=== PATIENT | female | born 1945 | race Caucasian/White ===

== ENCOUNTER → 2017-03-20 | Outpatient (CLI) | payer MEDICARE, OTHER ==
[2016-10-27 08:04] VITALS: BMI 20.1
[~2017-03-20] MED LIST: ASPI-1471 PO; CALC-904 PO; CHOL10005 PO; CIPR-214 PO; ESTR10TA4 VG; GOLYTE PO; IBUP600T22 PO; LACT1CAP6 PO; LIDO30CR3 TP; LOR5/325 PO; LORA-1455 PO; MAGN250T34 PO; MOM PO; MULT-1081 PO; OMEG-36 PO; OXYC-865 PO; PHEN16.215 PO; PROC10TA4 PO; SIME62.54 PO
== END ==
LOC: SPU 07:38
PROVIDERS: ATTEND Internal Medicine Medical Oncology
DX: C56.9 Malignant neoplasm of unspecified ovary (principal)
CPT/HCPCS: 96523

== ENCOUNTER → 2017-05-15 | Outpatient (CLI) | payer MEDICARE, OTHER ==
[2016-10-27 08:04] VITALS: BMI 20.1
[~2017-05-15] MED LIST changes: +ALTEPLASE RECOMB 2 MG VIAL IVP PRN; +DEXTROSE 5%(*) 100 ML BAG 100 ML IVPB PRN; +HEPARIN FLSH (PORT) 500 UN/5ML IVP PRN; +LIDOCAINE/SOD BICARB 8.4% SYR ID PRN; +NS(*) 0.9% 100 ML BAG 100 ML IVPB PRN; +NS(*) 0.9% 500 ML BAG 500 ML IV PRN; +WATER FOR INJ,STERILE 20 ML IVP PRN
[2017-05-15 11:14] VITALS: BP 120/51
== END ==
LOC: SPU 07:43
PROVIDERS: ATTEND Nurse Practitioner Family
DX: C56.9 Malignant neoplasm of unspecified ovary (principal)
CPT/HCPCS: 96523; J1642

== ENCOUNTER → 2017-06-26 | Outpatient (CLI) | payer MEDICARE, OTHER ==
[2016-10-27 08:04] VITALS: BMI 20.1
[~2017-06-26] MED LIST changes: -ALTEPLASE RECOMB 2 MG VIAL IVP PRN; -DEXTROSE 5%(*) 100 ML BAG 100 ML IVPB PRN; -HEPARIN FLSH (PORT) 500 UN/5ML IVP PRN; -LIDOCAINE/SOD BICARB 8.4% SYR ID PRN; -NS(*) 0.9% 100 ML BAG 100 ML IVPB PRN; -NS(*) 0.9% 500 ML BAG 500 ML IV PRN; +TETR15DR9 OP; -WATER FOR INJ,STERILE 20 ML IVP PRN
== END ==
LOC: LAB 09:04
DX: C56.9 Malignant neoplasm of unspecified ovary (principal)
CPT/HCPCS: 36415; 99001

== ENCOUNTER → 2017-09-17 | Outpatient (CLI) | payer MEDICARE, OTHER ==
[2016-10-27 08:04] VITALS: BMI 20.1
[~2017-09-17] MED LIST changes: +ALTEPLASE RECOMB 2 MG VIAL IVP PRN; +DEXTROSE 5%(*) 100 ML BAG 100 ML IVPB PRN; +HEPARIN FLSH (PORT) 500 UN/5ML IVP PRN; +LIDOCAINE/SOD BICARB 8.4% SYR ID PRN; +NS(*) 0.9% 100 ML BAG 100 ML IVPB PRN; +NS(*) 0.9% 500 ML BAG 500 ML IV PRN; +WATER FOR INJ,STERILE 20 ML IVP PRN
[2017-09-17 11:16] VITALS: BP 120/55
== END ==
LOC: SPU 11:02
PROVIDERS: ATTEND Internal Medicine Medical Oncology
DX: C56.9 Malignant neoplasm of unspecified ovary (principal)
CPT/HCPCS: 96523; J1642

== ENCOUNTER 2017-09-22 11:35 | Outpatient (RCR) | payer MEDICARE, OTHER ==
[2016-10-27 08:04] VITALS: BMI 20.1
[~2017-09-22 11:35] MED LIST changes: -ALTEPLASE RECOMB 2 MG VIAL IVP PRN; -DEXTROSE 5%(*) 100 ML BAG 100 ML IVPB PRN; -HEPARIN FLSH (PORT) 500 UN/5ML IVP PRN; -LIDOCAINE/SOD BICARB 8.4% SYR ID PRN; -NS(*) 0.9% 100 ML BAG 100 ML IVPB PRN; -NS(*) 0.9% 500 ML BAG 500 ML IV PRN; -WATER FOR INJ,STERILE 20 ML IVP PRN
--- NOTE | 2017-09-23 15:42 | RADIOLOGY IMAGING REPORT ---
FACILITY: [facility] - [place] PATIENT NAME: Kimberlee Tran : 1945 MR: [id number] V: [id number] EXAM DATE: ORDERING PHYSICIAN: INA TABARES TECHNOLOGIST: Location: [facility] Patient: Kimberlee Tran : 1945 Visit/Account:[id number] Date of Sevice: 09/23/2017 EXAMINATION: MRI Brain without intravenous contrast MRI Brain with intravenous contrast HISTORY: Multiple sclerosis. COMPARISON: 12/16/2016. TECHNIQUE: Multi-planar, multi-sequence brain MRI was performed before and after IV gadolinium. CONTRAST: 10 mL of IV MultiHance FINDINGS: Brain volume: Normal. Sagittal midline structures: Negative. Ventricles: Negative. Acute ischemic changes: None. Hemorrhage: None. Masses / edema: None. Enhancement: Negative. Herrera-white: Negative. White matter: Stable mild patchy T2/FLAIR hyperintensity in the periventricular, deep, and subcortic al white matter. No new lesions, restricted diffusion, or enhancement. Vessels: Small developmental venous anomaly in the right parietal lobe. Extra-axial: Negative. Calvarium / scalp: Negative. Skull base: Negative. Visualized sinuses / orbits: Rightward nasal septal deviation. Visualized upper neck: Negative. IMPRESSION: No significant change compared with 12/16/2016. Report Dictated By: Scot Donaldson MD at 09/23/2017 3:34 PM Report E-Signed By: Scot Donaldson MD at 09/23/2017 3:39 PM WSN:[id number]
== END 2017-09-23 18:00 | disposition home or self-care (01) ==
LOC: MRI 11:35
PROVIDERS: ATTEND Family Medicine
DX: G35 Multiple sclerosis (principal)
CPT/HCPCS: 36415; 70553; 82565; A9577

== ENCOUNTER → 2017-09-23 | Outpatient (CLI) | payer MEDICARE, OTHER ==
[2016-10-27 08:04] VITALS: BMI 20.1
[2017-09-23 09:55] LABS: PLATELET COUNT, AUTOMATED 238 K/uL (150-450)
== END ==
LOC: LAB 09:29
PROVIDERS: ATTEND Homeopath
DX: C56.9 Malignant neoplasm of unspecified ovary (principal)
CPT/HCPCS: 36415; 82040; 82247; 82310; 82374; 82435; 82565; 82947; 83615; 84075; 84132; 84155; 84295; 84450; 84460; 84520; 85025; 85651

== ENCOUNTER → 2017-10-16 | Outpatient (CLI) | payer MEDICARE, OTHER ==
[2016-10-27 08:04] VITALS: BMI 20.1
[~2017-10-16] MED LIST changes: +ALTEPLASE RECOMB 2 MG VIAL IVP PRN; +DEXTROSE 5%(*) 100 ML BAG 100 ML IVPB PRN; +HEPARIN FLSH (PORT) 500 UN/5ML IVP PRN; +LIDOCAINE/SOD BICARB 8.4% SYR ID PRN; +MELO-207 PO; +NS(*) 0.9% 100 ML BAG 100 ML IVPB PRN; +NS(*) 0.9% 500 ML BAG 500 ML IV PRN; +Protandim PEG; +WATER FOR INJ,STERILE 20 ML IVP PRN
== END ==
LOC: SPU 09:13
PROVIDERS: ATTEND Internal Medicine Medical Oncology
DX: Z02.9 Encounter for administrative examinations, unspecified (principal)
CPT/HCPCS: 96523

== ENCOUNTER → 2017-10-19 | Outpatient (CLI) | payer MEDICARE, OTHER ==
[2016-10-27 08:04] VITALS: BMI 20.1
[~2017-10-19] MED LIST changes: -ALTEPLASE RECOMB 2 MG VIAL IVP PRN; -DEXTROSE 5%(*) 100 ML BAG 100 ML IVPB PRN; -HEPARIN FLSH (PORT) 500 UN/5ML IVP PRN; +IOPAMIDOL 76% 100 ML INFUS BTL 100 ML ONE; -LIDOCAINE/SOD BICARB 8.4% SYR ID PRN; -NS(*) 0.9% 100 ML BAG 100 ML IVPB PRN; -NS(*) 0.9% 500 ML BAG 500 ML IV PRN; -WATER FOR INJ,STERILE 20 ML IVP PRN
--- NOTE | 2017-10-19 10:12 | RADIOLOGY IMAGING REPORT ---
FACILITY: [facility] - [place] PATIENT NAME: Kimberlee Tran : 1945 MR: [id number] V: [id number] EXAM DATE: ORDERING PHYSICIAN: INA SWENSON TECHNOLOGIST: Location: [facility] Patient: Kimberlee Tran : 1945 Visit/Account:[id number] Date of Sevice: 10/19/2017 ABDOMEN/PELVIS WITH CONTRAST HISTORY: Loading, trouble urinating, history of ovarian cancer TECHNIQUE: Following administration of IV contrast contiguous axial images acquired through the abdom en/pelvis. Coronal and sagittal reformatting also performed. Dose Lowering Technique One of the following dose optimization techniques was utilized in the performance of this exam: Autom ated exposure control; adjustment of the mA and/or kV according to the patient's size; or use of an i terative reconstruction technique. Specific details can be referenced in the facility's radiology C T exam operational policy. CONTRAST: 75 mL Isovue-[id number] COMPARISON: November 03, 2016 FINDINGS: Visualized lung bases: There are multiple pleural-based masses along the diaphragmatic surface of th e right lower thorax ranging in size from 3 mm to 9 mm which are not evident on the prior study. No bilateral pleural effusions have resolved. Hepatobiliary: There is a conglomerate of heterogeneous masses which appear to be extracapsular jaye g the dome of the liver collectively measuring approximately 5.8 x 1.8 x 5.8 cm not present previousl y several other smaller masses projecting along the lateral aspect of the dome of the liver also appe aring extracapsular Large gallstone again seen with enhancement of the gallbladder wall similar to the prior study Spleen: Accessory splenule Adrenals: Negative. Pancreas: Negative. Kidneys ureters or bladder: There is a mild left hydronephrosis and very mild fullness of the left ur eter Genitalia: Hysterectomy GI: There are numerous peritoneal implants seen throughout the abdomen and pelvis. These are especi ally prominent low within the pelvis and along the left side of the abdomen where there is matting of numerous loops of small bowel and colon. This peritoneal metastases likely account for partial obst ruction of the left ureter Vessels/spaces/nodes: There is a small amount of abdominal ascites and moderate amount of pelvic asc ites increased when compared to prior study Bones/soft tissues: There are multiple soft tissue nodules seen along the anterior right abdominal w all extending into these subcutaneous fat not present previously presumably metastatic in origin. No aggressive appearing bone lesions are seen. Multiple calcifications are seen in the buttocks presum ably from injections Additional findings: None pertinent. IMPRESSION: There are multiple pleural-based masses along the diaphragmatic surface the right lower thorax rangin g in size from 3 mm to 9 mm which are new when compared the prior study, presumably metastatic There is a conglomerate of heterogeneous masses which appears to be extracapsular along the dome of t he liver as detailed above also not present previously, presumably metastatic There are numerous peritoneal implants throughout the abdomen and pelvis, most prominent low in the p sarah and along the left-sided abdomen where there is matting of numerous loops of large and small maykel wel. Mild left hydronephrosis and mild prominence of the left ureter likely related to the peritoneal impl ants Multiple soft tissue nodules along the anterior right abdominal wall not present previously, presumab ly metastatic Large gallstone and enhancement of the gallbladder wall that appears similar to the prior study Report Dictated By: Rowan Scott MD at 10/19/2017 9:41 AM Report E-Signed By: Rowan Scott MD at 10/19/2017 10:08 AM WSN:[id number]
== END ==
LOC: CT 03:38
PROVIDERS: ATTEND Surgery
DX: N13.30 Unspecified hydronephrosis (principal); R19.09 Other intra-abdominal and pelvic swelling, mass and lump
CPT/HCPCS: 74177; Q9967

== ENCOUNTER → 2017-10-21 | Outpatient (CLI) | payer MEDICARE, OTHER ==
[2016-10-27 08:04] VITALS: BMI 20.1
[~2017-10-21] MED LIST changes: -IOPAMIDOL 76% 100 ML INFUS BTL 100 ML ONE
[2017-10-21 09:33] LABS: PLATELET COUNT, AUTOMATED 275 K/uL (150-450)
== END ==
LOC: LAB 09:01
PROVIDERS: ATTEND Homeopath
DX: C56.9 Malignant neoplasm of unspecified ovary (principal)
CPT/HCPCS: 36415; 82040; 82247; 82310; 82374; 82435; 82565; 82947; 83615; 84075; 84132; 84155; 84295; 84450; 84460; 84520; 85025; 85651

== ENCOUNTER → 2017-10-29 | Outpatient (CLI) | payer MEDICARE, OTHER ==
[2016-10-27 08:04] VITALS: BMI 20.1
== END ==
LOC: LAB 09:44
PROVIDERS: ATTEND Obstetrics & Gynecology
DX: C56.9 Malignant neoplasm of unspecified ovary (principal)
CPT/HCPCS: 36415; 86304

== ENCOUNTER 2017-11-11 00:18 | Emergency (ER) | payer MEDICARE, OTHER ==
[2016-10-27 08:04] VITALS: Wt 49.9 kg
--- NOTE | 2017-11-11 00:30 | ER Report ---
History and Physical Time Seen By MD: 00:24 Hx. of Stated Complaint: PT HAS WEAKNESS AND NAUSEA THAT STARTED AROUND 2300 YESTERDAY. HPI/ROS CHIEF COMPLAINT: nausea and vomiting, dizziness HISTORY OF PRESENT ILLNESS: This is a 72 year old female. She started having severe nausea and vomiting about an hour and a half ago. Associated with vertigo as well. No abdominal pain associated with this. She has had a significant recent medical history of worsening ovarian cancer with peritoneal metastasis. She is to see oncology, Dr. Davies, later today. Dr. Gonzales and Dr. House have been following her with this. Also with some cholelithiasis complicating matters as well. Has MS, but with an MRI brain showing no new lesions last month. PET scan done recently as well. She is urinating without problems and no dysuria. Her bowels are regular with a normal bowel movement earlier in the day. Dizziness is a vertigo that worsens when turning or laying to the left side, and easing with turning or laying on the right side. This has been intermittent for a long time, but became more severe tonight. No fevers noted, but she has been having some hot and cold flashes and notes that her feet are often hot and the rest of her is cold. She has generalized weakness tonight with severe shaking as well, this was during the vertigo and the nausea/vomiting episode as well. She notes that she will get numbness that comes and goes in her left leg, but this has been chronic and positional for quite some time. No focal weakness described. Allergies: Coded Allergies: Penicillins (Verified Allergy, Severe, Angioedema and hives, 11/03/16) Sulfa (Sulfonamide Antibiotics) (Verified Allergy, Severe, facial swelling and hives, 11/03/16) nitrofurantoin (Verified Allergy, Severe, Angioedema and hives, 11/03/16) oxycodone (Verified Allergy, Intermediate, ITCHING and hives, 11/03/16) albumin human (Verified Allergy, Unknown, 11/11/17) dimethyl fumarate (Verified Allergy, Unknown, 11/11/17) glatiramer (copolymer 1) (Verified Allergy, Unknown, 11/11/17) interferon beta-1a (Verified Allergy, Unknown, 11/11/17) ondansetron (Verified Allergy, Unknown, Itching, 11/03/16) zolpidem (Verified Allergy, Unknown, 11/11/17) Home Meds Active Scripts Promethazine Hcl (PROMETHAZINE HCL) 25 Mg Tablet, 25 MG PO Q8H PRN for NAUSEA/VOMITING, #20 TAB 0 Refills Prov:AGUSTIN MADDOX MD 11/11/17 Meclizine Hcl (MECLIZINE HCL) 25 Mg Tablet, 25 MG PO Q8H PRN for DIZZINESS, #20 TAB 0 Refills Prov:AGUSTIN MADDOX MD 11/11/17 Scopolamine (Scopolamine) 1 Mg/3 Day Patch.td.3, 1 PATCH.72H TD Q3D, #10 PATCH.72H 0 Refills Prov:AGUSTIN MADDOX MD 11/11/17 Tetrahydrozoline Hcl (EYE DROPS) 15 Ml Drops, 15 ML OP 2-3XD for 90 Days, Prov:VIN HOUSE MD 06/26/17 Reported Medications Chloroquine Phosphate (CHLOROQUINE PHOSPHATE) 500 Mg Tablet, 500 MG PO QDAY 11/11/17 Estradiol (VAGIFEM) 10 Mcg Tablet, 10 MCG VG 2XW 11/11/17 Phenobarb/Hyoscy/Atropine/Scop ( TABLET) 16.2 Mg Tablet, 16.2 MG PO PRN 11/11/17 Cholecalciferol (Vitamin D3) (VITAMIN D3) 1,000 Unit Tablet, 2500 UNIT PO QDAY, TAB 11/11/17 [Protandim] No Conflict Check, 1 TAB PEG QHS 10/16/17 Meloxicam (MELOXICAM) 15 Mg Tablet, 7.5 MG PO QDAY 10/16/17 Lactobacillus Combination No.4 (PROBIOTIC) 1 Each Capsule, 1 EACH PO QDAY, CAPSULE 1 OUNCE LIQUID LACTOBACILLUS 07/02/16 [place]-3 Fatty Acids/Fish Oil (OMEGA 3 FISH OIL SOFTGEL) 1 Each Capsule.dr, 2 E ACH PO QDAY 07/02/16 Multivitamin (MULTI-DAY VITAMINS) 1 Each Tablet, 1 EACH PO QDAY 07/02/16 Magnesium Oxide (MAGNESIUM) 250 Mg Tablet, 500 MG PO QDAY 07/02/16 Calcium Carb/Vit D3/Mag11/Zinc (SZHUZEE-KHM-BMWQ-VIT D TABLET) 1 Each Tablet, 1 EACH PO QDAY 07/02/16 Aspirin (ASPIR 81) 81 Mg Tablet., 81 MG PO QDAY, TAB 07/02/16 Reviewed Nurses Notes: Yes Hx Smoking: No Smoking Status: Never Smoker Exposure to Second Hand Smoke?: No Hx Substance Use Disorder: No Hx Alcohol Use: Yes (1-2 drink per wk) Constitutional Vital Sign - Last 24 Hours 11/11/17 11/11/17 11/11/17 11/11/17 00:19 00:25 00:30 00:48 Temp 98.3 Pulse 87 82 Resp 20 18 B/P (MAP) 133/54 133/54 (80) 124/48 (73) Pulse Ox 95 89 O2 Delivery Room Air 11/11/17 11/11/17 11/11/17 11/11/17 01:00 01:18 01:30 01:35 Pulse 82 79 Resp 16 17 B/P (MAP) 107/44 (65) 95/46 (62) Pulse Ox 87 94 11/11/17 11/11/17 11/11/17 11/11/17 01:50 02:05 02:20 02:50 Pulse 75 78 77 71 Resp 15 17 Pulse Ox 94 93 94 95 11/11/17 11/11/17 03:05 03:20 Pulse 70 73 Pulse Ox 95 94 Intake and Output 11/10/17 11/10/17 11/11/17 14:59 22:59 06:59 Intake Total 1000 ml Balance 1000 ml Physical Exam General Appearance: The patient is alert. Acute distress due to ongoing vomiting. Eyes: Pupils are equal, round. Reactive to light. No pallor, injection or icterus. Extraocular movements are intact. ENT: Mucous membranes are moist. Normal oral mucosa. Posterior oropharynx is normal. Neck: Supple and non tender. Respiratory: Lungs are clear to auscultation. Cardiovascular: Regular rate and rhythm. No murmurs, gallops or rubs. Normal capillary refill. No edema. Gastrointestinal: Abdomen is soft and non tender. Nondistended. Normal active bowel sounds. No costovertebral angle tenderness with percussion. Neurological: Alert and oriented x3. Cranial nerves with eye exam as noted above . Midline tongue, no facial weakness, normal sensation in the face, symmetric palate elevation. Has some tingling in the left leg throughout. No other numbness. No weakness noted. Francine-Hallpike done and positive to the left with associated nystagmus and reproduction of dizziness. Skin: Warm and dry. Musculoskeletal: Extremities are nontender. No tenderness in palpation of the cervical, thoracic and lumbar spine. DIFFERENTIAL DIAGNOSIS: After history and physical exam, differential diagnosis was considered for patient with vertigo which appears to be peripheral on the left inner ear based on exam tonight. Symptoms all started with the vertigo and the nausea and vomiting seems due to the vertigo. Labs are going to be done to look for further causes. With her MS he would also have to think about central causes as well. Medical Decision Making Data Points Result Diagram: 11/11/179911/11/1799 Laboratory Hematology Test 11/11/17 01:00 Red Blood Count 3.14 M/uL (4.17-5.56) Mean Corpuscular Volume 104.7 fL (80.0-96.0) Mean Corpuscular Hemoglobin 37.4 pg (26.0-33.0) Mean Corpuscular Hemoglobin Concent 35.7 g/dL (32.0-36.0) Red Cell Distribution Width 12.8 % (11.5-14.5) Mean Platelet Volume 7.2 fL (7.2-11.1) Neutrophils (%) (Auto) 79.6 % (39.4-72.5) Lymphocytes (%) (Auto) 6.4 % (17.6-49.6) Monocytes (%) (Auto) 13.0 % (4.1-12.4) Eosinophils (%) (Auto) 0.5 % (0.4-6.7) Basophils (%) (Auto) 0.5 % (0.3-1.4) Nucleated RBC Relative Count (auto) 0.0 /100WBC Neutrophils # (Auto) 6.6 K/uL (2.0-7.4) Lymphocytes # (Auto) 0.5 K/uL (1.3-3.6) Monocytes # (Auto) 1.1 K/uL (0.3-1.0) Eosinophils # (Auto) 0.0 K/uL (0.0-0.5) Basophils # (Auto) 0.0 K/uL (0.0-0.1) Nucleated RBC Absolute Count (auto) 0.00 K/uL Sodium Level 134 mmol/L (137-145) Potassium Level 3.2 mmol/L (3.5-5.0) Chloride Level 105 mmol/L (98-107) Carbon Dioxide Level 23 mmol/L (22-31) Blood Urea Nitrogen 17 mg/dl (7-18) Creatinine 0.80 mg/dl (0.52-1.04) Glomerular Filtration Rate Calc > 60.0 Random Glucose 138 mg/dl (75-110) Calcium Level 9.0 mg/dl (8.4-10.2) Total Bilirubin 0.1 mg/dl (0.2-1.3) Aspartate Amino Transf (AST/SGOT) 15 U/L (0-35) Alanine Aminotransferase (ALT/SGPT) 13 U/L (0-56) Alkaline Phosphatase 102 U/L (0-126) Total Protein 6.3 g/dl (6.3-8.2) Albumin 3.9 g/dl (3.5-5.0) Amylase Level 62 U/L (0-110) Lipase 162 U/L (23-300) Chemistry Test 11/11/17 01:00 White Blood Count 8.3 k/uL (4.5-11.0) Red Blood Count 3.14 M/uL (4.17-5.56) Hemoglobin 11.7 g/dL (12.0-16.0) Hematocrit 32.8 % (34.0-47.0) Mean Corpuscular Volume 104.7 fL (80.0-96.0) Mean Corpuscular Hemoglobin 37.4 pg (26.0-33.0) Mean Corpuscular Hemoglobin Concent 35.7 g/dL (32.0-36.0) Red Cell Distribution Width 12.8 % (11.5-14.5) Platelet Count 241 K/uL (150-450) Mean Platelet Volume 7.2 fL (7.2-11.1) Neutrophils (%) (Auto) 79.6 % (39.4-72.5) Lymphocytes (%) (Auto) 6.4 % (17.6-49.6) Monocytes (%) (Auto) 13.0 % (4.1-12.4) Eosinophils (%) (Auto) 0.5 % (0.4-6.7) Basophils (%) (Auto) 0.5 % (0.3-1.4) Nucleated RBC Relative Count (auto) 0.0 /100WBC Neutrophils # (Auto) 6.6 K/uL (2.0-7.4) Lymphocytes # (Auto) 0.5 K/uL (1.3-3.6) Monocytes # (Auto) 1.1 K/uL (0.3-1.0) Eosinophils # (Auto) 0.0 K/uL (0.0-0.5) Basophils # (Auto) 0.0 K/uL (0.0-0.1) Nucleated RBC Absolute Count (auto) 0.00 K/uL Glomerular Filtration Rate Calc > 60.0 Calcium Level 9.0 mg/dl (8.4-10.2) Total Bilirubin 0.1 mg/dl (0.2-1.3) Aspartate Amino Transf (AST/SGOT) 15 U/L (0-35) Alanine Aminotransferase (ALT/SGPT) 13 U/L (0-56) Alkaline Phosphatase 102 U/L (0-126) Total Protein 6.3 g/dl (6.3-8.2) Albumin 3.9 g/dl (3.5-5.0) Amylase Level 62 U/L (0-110) Lipase 162 U/L (23-300) ED Course/Re-evaluation Clinical Indication for ER IV: Hydration, IV Access ED Course Patient does seem a lot better after IV Phenergan. Discussed the results of testing on physical exam that suggests this is a peripheral cause of vertigo. I did offer to do MRI, especially given her history of cancer and her history of MS, despite having one several weeks ago that did not show any new changes. I think is less likely to be a central cause and discussed this with the patient and her family as well. We discussed that the general shaking and weakness was likely a sympathetic response from the vertigo and nausea and vomiting. She is f eeling a lot better and labs are fairly unremarkable with slight decrease of sodium and potassium. We started scopolamine patch as well as some meclizine and Phenergan as needed. They will return home at this point and follow up with Dr. Davies later today. They will discuss these medications with him as well and also discuss if he feels any further imaging is needed. Decision to Disposition Date: Nov 11, 2017 Decision to Disposition Time: 03:24 Depart Departure Latest Vital Signs Vital Signs Date Time Temp Pulse Resp B/P (MAP) Pulse Ox O2 Delivery O2 Flow Rate FiO2 11/11/17 03:20 73 94 11/11/17 02:05 17 11/11/17 01:30 95/46 (62) 11/11/17 00:19 98.3 Room Air Impression: Primary Impression: Vertigo Additional Impression: Nausea & vomiting Condition: Improved Disposition: HOME OR SELF-CARE Referrals: INA TABARES MD (PCP) New Scripts Promethazine Hcl (PROMETHAZINE HCL) 25 Mg Tablet 25 MG PO Q8H PRN for NAUSEA/VOMITING, #20 TAB 0 Refills Prov: AGUSTIN MADDOX MD 11/11/17 Meclizine Hcl (MECLIZINE HCL) 25 Mg Tablet 25 MG PO Q8H PRN for DIZZINESS, #20 TAB 0 Refills Prov: AGUSTIN MADDOX MD 11/11/17 Scopolamine (Scopolamine) 1 Mg/3 Day Patch.td.3 1 PATCH.72H TD Q3D, #10 PATCH.72H 0 Refills Prov: AGUSTIN MADDOX MD 11/11/17 Patient Instructions: Benign Paroxysmal Positional Vertigo (ED), Vertigo (ED) Additional Instructions: Keep your appointment with Dr. Davies today. Take Meclizine 25mg, 1/2 to 1 tablet every 8 hours as needed for dizziness. Scopolamine patch every 3 days Phenergan 25mg, 1/2 to 1 tablet every 8 hours as needed for nausea. Problem Qualifiers Additional Impression: Nausea & vomiting Vomiting type: unspecified Vomiting Intractability: non-intractable Ramon lified Codes: R11.2 - Nausea with vomiting, unspecified AGUSTIN MADDOX MD Nov 11, 2017 00:30
[2017-11-11] MEDS ORDERED: CHOL10005 PO (00:41)
[2017-11-11] MEDS ORDERED: PHEN16.215 PO (00:42)
[2017-11-11] MEDS ORDERED: ESTR10TA4 VG (00:42)
[2017-11-11] MEDS ORDERED: [UNRECOGNIZED DRUG - CODE] PO (00:44)
[2017-11-11] MEDS ORDERED: PROMETHAZINE 25 MG/ML 1 ML AMP IVP ONE (00:45)
[2017-11-11] MEDS ORDERED: NS(*) 0.9% 1000 ML BAG 1,000 ML IV ONE (00:45)
[2017-11-11 01:30] VITALS: BP 95/46
[2017-11-11 01:36] LABS: PLATELET COUNT, AUTOMATED 241 K/uL (150-450)
[2017-11-11] MEDS ORDERED: MECLIZINE HCL 12.5 MG TAB TH PO ONE (02:50)
[2017-11-11] MEDS ORDERED: PROMETHAZINE HCL 25 MG TAB TH 2 TAB/BOTTLE PO ONE (02:50)
[2017-11-11] MEDS ORDERED: SCOPOLAMINE 1.5 MG PATCH TD ONE (02:50)
[2017-11-11] MEDS ORDERED: PROM-110 PO (03:26)
[2017-11-11] MEDS ORDERED: SCOP1PAT16 TD (03:26)
[2017-11-11] MEDS ORDERED: MECL25TA9 PO (03:26)
[2017-11-11] MEDS ORDERED: HEPARIN FLSH (PORT) 500 UN/5ML ONE (03:32)
[2017-11-11] MEDS ORDERED: POTA-53 PO (14:17)
== END 2017-11-11 03:48 | disposition home or self-care (01) ==
LOC: ER 00:20
DX: R42 Dizziness and giddiness (principal); R11.2 Nausea with vomiting, unspecified
CPT/HCPCS: 82150; 83690; 85025; 96361; 96374; 99284; A9270; J1642; J2550; J7030; 82040; 82247; 82310; 82374; 82435; 82565; 82947; 84075; 84132; 84155; 84295; 84450; 84460; 84520

== ENCOUNTER → 2017-11-13 | Outpatient (CLI) | payer MEDICARE, OTHER ==
[2016-10-27 08:04] VITALS: BMI 20.1
[~2017-11-13] MED LIST changes: +MECL25TA9 PO; +POTA-53 PO; +PROM-110 PO; +SCOP1PAT16 TD; +[UNRECOGNIZED DRUG - CODE] PO
--- NOTE | 2017-11-13 11:59 | RADIOLOGY IMAGING REPORT ---
FACILITY: [facility] [place] PATIENT NAME: Kimberlee Tran : 1945 MR: [id number] V: [id number] EXAM DATE: ORDERING PHYSICIAN: JUDE PATEL TECHNOLOGIST: Location: [facility] [place] Patient: Kimberlee Tran : 1945 Visit/Account:[id number] Date of Sevice: 11/13/2017 EXAMINATION: Brain MR angiogram HISTORY: Anisocoria COMPARISON: Brain MR November 11, 2017 TECHNIQUE: [id number] angiography was performed through the brain with 3D reformations. FINDINGS: Internal carotids: Normal. Anterior/Posterior communicating arteries: Normal. Anterior cerebral arteries: Normal. Middle cerebral arteries: Normal. Posterior cerebral arteries: Normal. Vertebrobasilar: Normal. PICA / AICA / SCA / ENVIRONMENTAL FIELD SERVICES TECHNICIAN: Normal. Non-angiographic Findings: None significant. IMPRESSION: Normal brain MR angiogram. Report Dictated By: Tone Lozano MD at 11/13/2017 11:52 AM Report E-Signed By: Tone Lozano MD at 11/13/2017 11:55 AM WSN:[id number]
== END ==
LOC: MRI 08:18
PROVIDERS: ATTEND Specialist
DX: H57.02 Anisocoria (principal)
CPT/HCPCS: 70544

== ENCOUNTER 2017-11-30 16:38 | Emergency (ER) | payer MEDICARE, OTHER ==
[2016-10-27 08:04] VITALS: Wt 49.9 kg
[~2017-11-30 16:38] MED LIST changes: +[UNRECOGNIZED DRUG - OTHER]; +[UNRECOGNIZED DRUG - OTHER]
--- NOTE | 2017-11-30 16:44 | ER Report ---
History and Physical Time Seen By MD: 16:44 HPI/ROS CHIEF COMPLAINT: Constipation HISTORY OF PRESENT ILLNESS: This is a 72-year-old female who presents to the emergency department from the cancer center for constipation and abdominal pain. Patient has been seen and evaluated several times this year the last several months for constipation. Patient also has a history of ovarian cancer with metastasis. She is also had dizziness. Patient states over the last week she's had no real bowel movement, has small bowel movements some formed some are not at least once a day however has had increased abdominal distention, abdominal pain and dysuria along with frequency. Patient has also had intermittent episodes of lightheadedness, dizziness, more recently the patient states she's had visual disturbances including what she may consider visual hallucinations. Increased fatigue. Denies fevers or chills. No headaches. No chest pain or shortness of breath. Intermittent coughing over the last week. REVIEW OF SYSTEMS: Constitutional: No fever, no chills. Eyes: No discharge. ENT: No sore throat. Cardiovascular: No chest pain, no palpitations. Respiratory: As above. Gastrointestinal: As above. Genitourinary: As above. Musculoskeletal: No back pain. Skin: No rashes. Neurological: No headache. Allergies: Coded Allergies: Penicillins (Verified Allergy, Severe, Angioedema and hives, 11/03/16) Sulfa (Sulfonamide Antibiotics) (Verified Allergy, Severe, facial swelling and hives, 11/03/16) nitrofurantoin (Verified Allergy, Severe, Angioedema and hives, 11/03/16) oxycodone (Verified Allergy, Intermediate, ITCHING and hives, 11/03/16) albumin human (Verified Allergy, Unknown, 11/11/17) dimethyl fumarate (Verified Allergy, Unknown, 11/11/17) glatiramer (copolymer 1) (Verified Allergy, Unknown, 11/11/17) interferon beta-1a (Verified Allergy, Unknown, 11/11/17) ondansetron (Verified Allergy, Unknown, Itching, 11/03/16) zolpidem (Verified Allergy, Unknown, 11/11/17) Home Meds Active Scripts Promethazine Hcl (PROMETHAZINE HCL) 25 Mg Tablet, 25 MG PO Q8H PRN for NAUSEA/VOMITING, #20 TAB 0 Refills Prov:AGUSTIN MADDOX MD 11/11/17 Meclizine Hcl (MECLIZINE HCL) 25 Mg Tablet, 25 MG PO Q8H PRN for DIZZINESS, #20 TAB 0 Refills Prov:AGUSTIN MADDOX MD 11/11/17 Scopolamine (Scopolamine) 1 Mg/3 Day Patch.td.3, 1 PATCH.72H TD Q3D, #10 PATCH.72H 0 Refills Prov:AGUSTIN MADDOX MD 11/11/17 Tetrahydrozoline Hcl (EYE DROPS) 15 Ml Drops, 15 ML OP 2-3XD for 90 Days, Prov:VIN BROWN MD 06/26/17 Reported Medications [polyMva] No Conflict Check 11/30/17 [artemisinin] No Conflict Check 11/30/17 Potassium Chloride (POTASSIUM CHLORIDE) 10 Meq Tab.er.prt, 10 MEQ PO QDAY for 30 Days, #30 0 Refills 11/11/17 [place] Phosphate (CHLOROQUINE PHOSPHATE) 500 Mg Tablet, 500 MG PO QDAY 11/11/17 Estradiol (VAGIFEM) 10 Mcg Tablet, 10 MCG VG 2XW 11/11/17 Phenobarb/Hyoscy/Atropine/Scop ( TABLET) 16.2 Mg Tablet, 16.2 MG PO PRN 11/11/17 Cholecalciferol (Vitamin D3) (VITAMIN D3) 1,000 Unit Tablet, 2500 UNIT PO QDAY, TAB 11/11/17 [Protandim] No Conflict Check, 1 TAB PEG QHS 10/16/17 Meloxicam (MELOXICAM) 15 Mg Tablet, 7.5 MG PO QDAY 10/16/17 Lactobacillus Combination No.4 (PROBIOTIC) 1 Each Capsule, 1 EACH PO QDAY, CAPSULE 1 OUNCE LIQUID LACTOBACILLUS 07/02/16 Hamer-3 Fatty Acids/Fish Oil (OMEGA 3 FISH OIL SOFTGEL) 1 Each Capsule.dr, 2 EACH PO QDAY 07/02/16 Multivitamin (MULTI-DAY VITAMINS) 1 Each Tablet, 1 EACH PO QDAY 07/02/16 Magnesium Oxide (MAGNESIUM) 250 Mg Tablet, 500 MG PO QDAY 07/02/16 Calcium Carb/Vit D3/Mag11/Zinc (DAEZCVT-GMT-WTUT-VIT D TABLET) 1 Each Tablet, 1 EACH PO QDAY 07/02/16 Aspirin (ASPIR 81) 81 Mg Tablet.dr, 81 MG PO QDAY, TAB 07/02/16 Past Medical/Surgical History The patient has a past medical and surgical history of MS, left bundle branch block, IBS, ovarian cancer with metastasis, urinary tract infections, vertebral fracture, wears glasses, cystoscopy, hysterectomy, mole excision. PowerPort. Hx Smoking: No Smoking Status: Never Smoker Exposure to Second Hand Smoke?: No Hx Substance Use Disorder: No Hx Alcohol Use: Yes (1-2 drink per wk) Constitutional Vital Sign - Last 24 Hours 11/30/17 11/30/17 11/30/17 11/30/17 16:40 16:46 16:53 17:00 Temp 98.6 Pulse 82 80 Resp 16 B/P (MAP) 133/50 133/50 (77) 115/47 (69) Pulse Ox 95 99 O2 Delivery Room Air 11/30/17 11/30/17 11/30/17 11/30/17 17:08 17:23 17:30 17:38 Pulse 80 81 100 B/P (MAP) 123/43 (69) Pulse Ox 93 95 90 11/30/17 11/30/17 11/30/17 11/30/17 17:43 18:30 18:35 18:50 Pulse 94 81 77 76 B/P (MAP) 109/45 (66) Pulse Ox 92 89 93 94 11/30/17 11/30/17 11/30/17 11/30/17 19:00 19:05 19:30 19:35 Pulse 76 79 B/P (MAP) 116/37 (63) 118/58 (78) Pulse Ox 95 94 11/30/17 11/30/17 11/30/17 11/30/17 19:50 20:00 20:05 20:20 Pulse 78 73 75 B/P (MAP) 110/46 (67) Pulse Ox 89 95 91 11/30/17 20:25 Pulse 75 Pulse Ox 93 Physical Exam General Appearance: The patient is alert, has no immediate need for airway protection and no signs of toxicity, appears fatigued. Eyes: Pupils equal and round no pallor or injection. ENT, Mouth: Mucous membranes are dry. Respiratory: There are no retractions, lungs are clear to auscultation. Cardiovascular: Regular rate and rhythm, no murmurs, clicks or rubs. Gastrointestinal: Abdomen is round, firm with generalized tenderness to palpation. Hyperactive bowel sounds. No masses. Neurological: Alert and oriented 4. Moving all extremities. Following all commands. No focal neuro deficits. Skin: Warm and dry, no rashes. Musculoskeletal: Neck is supple non tender. Extremities are nontender, nonswollen and have full range of motion. [ ] DIFFERENTIAL DIAGNOSIS: After history and physical exam differential diagnosis was considered for abdominal pain in a female including but not limited to ovarian cyst, pelvic inflammatory disease, constipation, adhesions, metastasis, invasive tumor, ovarian torsion, urinary tract infection, and appendicitis. Medical Decision Making Data Points Result Diagram: 11/30/17 1718 11/30/17 1718 Laboratory Hematology Test 11/30/17 17:18 11/30/17 19:35 Red Blood Count 3.20 M/uL (4.17-5.56) Mean Corpuscular Volume 101.3 fL (80.0-96.0) Mean Corpuscular Hemoglobin 36.4 pg (26.0-33.0) Mean Corpuscular Hemoglobin Concent 36.0 g/dL (32.0-36.0) Red Cell Distribution Width 13.7 % (11.5-14.5) Mean Platelet Volume 7.4 fL (7.2-11.1) Neutrophils (%) (Auto) 69.9 % (39.4-72.5) Lymphocytes (%) (Auto) 14.1 % (17.6-49.6) Monocytes (%) (Auto) 15.2 % (4.1-12.4) Eosinophils (%) (Auto) 0.6 % (0.4-6.7) Basophils (%) (Auto) 0.2 % (0.3-1.4) Nucleated RBC Relative Count (auto) 0.1 /100WBC Neutrophils # (Auto) 4.6 K/uL (2.0-7.4) Lymphocytes # (Auto) 0.9 K/uL (1.3-3.6) Monocytes # (Auto) 1.0 K/uL (0.3-1.0) Eosinophils # (Auto) 0.0 K/uL (0.0-0.5) Basophils # (Auto) 0.0 K/uL (0.0-0.1) Nucleated RBC Absolute Count (auto) 0.01 K/uL Sodium Level 134 mmol/L (137-145) Potassium Level 3.1 mmol/L (3.5-5.0) Chloride Level 106 mmol/L (98-107) Carbon Dioxide Level 23 mmol/L (22-31) Blood Urea Nitrogen 18 mg/dl (7-18) Creatinine 1.10 mg/dl (0.52-1.04) Glomerular Filtration Rate Calc 48.6 Random Glucose 101 mg/dl (75-110) Calcium Level 11.5 mg/dl (8.4-10.2) Total Bilirubin 0.2 mg/dl (0.2-1.3) Aspartate Amino Transf (AST/SGOT) 23 U/L (0-35) Alanine Aminotransferase (ALT/SGPT) 21 U/L (0-56) Alkaline Phosphatase 102 U/L (0-126) Total Protein 6.2 g/dl (6.3-8.2) Albumin 3.3 g/dl (3.5-5.0) Urine Color Yellow Urine Clarity Slightly-cloudy Urine pH 6.0 pH (4.8-9.5) Urine Specific [place] 1.020 Urine Protein Negative mg/dL (NEGATIVE) Urine Glucose (UA) Negative mg/dL (NEGATIVE) Urine Ketones Trace mg/dL (NEGATIVE) Urine Blood Negative (NEGATIVE) Urine Nitrite Negative (NEGATIVE) Urine Bilirubin Negative (NEGATIVE) Urine Urobilinogen Negative mg/dL (0.2-1.9) Urine Leukocyte Esterase Negative (NEGATIVE) Urine RBC <1 /HPF (0-2/HPF) Urine WBC 1 /HPF (0-5/HPF) Urine Squamous Epithelial Cells Few /LPF (</=FEW) Urine Bacteria Negative /HPF (NONE-FEW) Urine Hyaline Casts Few /LPF (NONE-FEW) Urine Mucus None /HPF (NONE-FEW) Chemistry Test 11/30/17 17:18 11/30/17 19:35 White Blood Count 6.6 k/uL (4.5-11.0) Red Blood Count 3.20 M/uL (4.17-5.56) Hemoglobin 11.7 g/dL (12.0-16.0) Hematocrit 32.4 % (34.0-47.0) Mean Corpuscular Volume 101.3 fL (80.0-96.0) Mean Corpuscular Hemoglobin 36.4 pg (26.0-33.0) Mean Corpuscular Hemoglobin Concent 36.0 g/dL (32.0-36.0) Red Cell Distribution Width 13.7 % (11.5-14.5) Platelet Count 200 K/uL (150-450) Mean Platelet Volume 7.4 fL (7.2-11.1) Neutrophils (%) (Auto) 69.9 % (39.4-72.5) Lymphocytes (%) (Auto) 14.1 % (17.6-49.6) Monocytes (%) (Auto) 15.2 % (4.1-12.4) Eosinophils (%) (Auto) 0.6 % (0.4-6.7) Basophils (%) (Auto) 0.2 % (0.3-1.4) Nucleated RBC Relative Count (auto) 0.1 /100WBC Neutrophils # (Auto) 4.6 K/uL (2.0-7.4) Lymphocytes # (Auto) 0.9 K/uL (1.3-3.6) Monocytes # (Auto) 1.0 K/uL (0.3-1.0) Eosinophils # (Auto) 0.0 K/uL (0.0-0.5) Basophils # (Auto) 0.0 K/uL (0.0-0.1) Nucleated RBC Absolute Count (auto) 0.01 K/uL Glomerular Filtration Rate Calc 48.6 Calcium Level 11.5 mg/dl (8.4-10.2) Total Bilirubin 0.2 mg/dl (0.2-1.3) Aspartate Amino Transf (AST/SGOT) 23 U/L (0-35) Alanine Aminotransferase (ALT/SGPT) 21 U/L (0-56) Alkaline Phosphatase 102 U/L (0-126) Total Protein 6.2 g/dl (6.3-8.2) Albumin 3.3 g/dl (3.5-5.0) Urine Color Yellow Urine Clarity Slightly-cloudy Urine pH 6.0 pH (4.8-9.5) Urine Specific [place] 1.020 Urine Protein Negative mg/dL (NEGATIVE) Urine Glucose (UA) Negative mg/dL (NEGATIVE) Urine Ketones Trace mg/dL (NEGATIVE) Urine Blood Negative (NEGATIVE) Urine Nitrite Negative (NEGATIVE) Urine Bilirubin Negative (NEGATIVE) Urine Urobilinogen Negative mg/dL (0.2-1.9) Urine Leukocyte Esterase Negative (NEGATIVE) Urine RBC <1 /HPF (0-2/HPF) Urine WBC 1 /HPF (0-5/HPF) Urine Squamous Epithelial Cells Few /LPF (</=FEW) Urine Bacteria Negative /HPF (NONE-FEW) Urine Hyaline Casts Few /LPF (NONE-FEW) Urine Mucus None /HPF (NONE-FEW) Urinalysis Test 11/30/17 19:35 Urine Color Yellow Urine Clarity Slightly-cloudy Urine pH 6.0 pH (4.8-9.5) Urine Specific [place] 1.020 Urine Protein Negative mg/dL (NEGATIVE) Urine Glucose (UA) Negative mg/dL (NEGATIVE) Urine Ketones Trace mg/dL (NEGATIVE) Urine Blood Negative (NEGATIVE) Urine Nitrite Negative (NEGATIVE) Urine Bilirubin Negative (NEGATIVE) Urine Urobilinogen Negative mg/dL (0.2-1.9) Urine Leukocyte Esterase Negative (NEGATIVE) Urine RBC <1 /HPF (0-2/HPF) Urine WBC 1 /HPF (0-5/HPF) Urine Squamous Epithelial Cells Few /LPF (</=FEW) Urine Bacteria Negative /HPF (NONE-FEW) Urine Hyaline Casts Few /LPF (NONE-FEW) Urine Mucus None /HPF (NONE-FEW) EKG/Imaging Imaging ABDOMEN/PELVIS WITH CONTRAST Additional pertinent History: Abdominal pain. Constipation. History of ovarian metastases TECHNIQUE: Spiral scan was through the abdomen and pelvis during injection of nonionic iodinated intravenous contrast. Contrast: 75 mL of IV [id number]. COMPARISON STUDIES: 10/19/2017. One of the following dose optimization techniques was utilized in the performance of this exam: Automated exposure control; adjustment of the mA and/or kV according to the patient's size; or use of an iterative r econstruction technique. Specific details can be referenced in the facility's radiology CT exam operational policy. FINDINGS: Liver / biliary: No liver lesions. Perihepatic peritoneal metastases i dentified. Gallstone. Pancreas: negative Spleen: negative Adrenal glands: negative Kidneys / retroperitoneum: Increasing left hydronephrosis compared to the previous study. Pelvic structures: Hysterectomy. Pelvic metastatic which appears to be slightly more conspicuous than the previous study. Bowel / peritoneum / mesenteries: There are numerous peritoneal and mesenteric soft tissue masses compatible with omental caking and peritoneal metastases which are increasing in conspicuity and number when compared to the previous study. There is increasing ascites. Vessels: negative Musculoskeletal / Body wall: negative Lymph node assessment: negative Lower chest: Interval development of bilateral effusions and volume loss/consolidative change when compared to the previous study IMPRESSION: 1. Increasing ascites and omental/peritoneal metastases when compared to the previous study. 2. Increasing left hydronephrosis with the previous study. 3. Interval development of bilateral effusions and atelectasis. Report Dictated By: Ayan Saldivar MD at 11/30/2017 6:41 PM Report E-Signed By: Ayan Saldivar MD at 11/30/2017 6:53 PM WSN:[facility] ED Course/Re-evaluation Clinical Indication for ER IV: Hydration, IV Access (Power port access) ED Course The patient was admitted to a room. A history and physical obtained. Differential diagnoses were considered. The patient's part port was accessed. A CBC, CMP and lipase were obtained. H&H 11.7 and 32.4, platelets 200, this is roughly the same as her previous lab studies and slightly improved. Sodium 134, potassium 3.1, BUN 18, creatinine 1.1. I did review the laboratory studies with the patient and her . A CT of the abdomen and pelvis showing Increasing ascites and omental/peritoneal metastases, Increasing left hydronephrosis and Interval development of bilateral effusions and atelectasis. I did review the CT results with the patient and her . We discussed many options at this time, given the increase in ascites I did recommend 20 mg furosemide to begin to remove some of the fluid in addition to this she will start taking her potassium again. Patient was taking furosemide but they stopped taking it due to concern about her ambulation, her states that her ambulation has not changed at all since taking it, they will go ahead and restart this. I recommended contacting the oncology clinic tomorrow for follow-up. The patient was still somewhat concerned about her bowels, I did tell her that there is no sign of fecal impaction or severe constipation, I did however send her home with a bottle of mag citrate to see if this would help facilitate some of the residual stool, I did tell her not to take or than half the bottle. The was there, he expressed understanding. The patient also did state that she would rather go home at this time and not stay in the hospital. I did tell them that if anything changes throughout the night for the next couple days if he need to return to the ER they can certainly do this at any time. They had no other questions or concerns at this time and were discharged home. Patient's nausea was improved at the time of discharge. The patient has no dizziness at this time. 11/30/2017 5:41:57 pm patient having a mild dystonic reaction after the Phenergan, given Benadryl. 11/30/2017 6:47:14 pm patient back from the CT, I did review the laboratory results with the patient and her . Asked if she was feeling better, she said she was still having some nausea, I asked sheetlike something else for the nausea patient was having a difficult time getting an answer ultimately she decided that she did not want anything for nausea at this time. Decision to Disposition Date: Nov 30, 2017 Decision to Disposition Time: 20:08 Depart Departure Latest Vital Signs Vital Signs Date Time Temp Pulse Resp B/P (MAP) Pulse Ox O2 Delivery O2 Flow Rate FiO2 11/30/17 20:25 75 93 11/30/17 20:00 110/46 (67) 11/30/17 16:40 98.6 16 Room Air Impression: Primary Impression: Ascites Condition: Improved Disposition: HOME OR SELF-CARE Referrals: INA TABARES MD (PCP) Patient Instructions: Ascites (ED) Additional Instructions: Try taking no more than half the mag citrate tonight. Restart the Potassium supplement and the Lasix (20mg) per day to try and start removing some of the peritoneal fluid. Call the cancer center in the morning for follow up, they may change the plan of care and start you on a more aggressive bowel regimen. Try to get plenty of rest. If anything changes you can return to the ED at any time. Problem Qualifiers Primary Impression: Ascites Ascites type: malignant Qualified Codes: R18.0 - Malignant ascites KONSTANTIN HYLTON [employer] Nov 30, 2017 16:44
[2017-11-30] MEDS ORDERED: NS(*) 0.9% 500 ML BAG 500 ML IV ONE (17:11)
[2017-11-30] MEDS ORDERED: fentaNYL CITR 100 MCG/2 ML AMP IVP ONE (17:15)
[2017-11-30] MEDS ORDERED: PROMETHAZINE 25 MG/ML 1 ML AMP IVP ONE (17:15)
[2017-11-30] MEDS ORDERED: IOPAMIDOL 76% 75 ML INFUS BTL 75 ML ONE (17:25)
[2017-11-30 17:37] LABS: PLATELET COUNT, AUTOMATED 200 K/uL (150-450)
[2017-11-30] MEDS ORDERED: diphenhydrAMINE 50 MG/ML VIAL IVP ONE (17:40)
--- NOTE | 2017-11-30 18:25 | RADIOLOGY IMAGING REPORT ---
[place] [facility] [place]: Kimberlee Tran : 1945 MR: [id number] V: [id number] EXAM DATE: ORDERING PHYSICIAN: KONSTANTIN HYLTON TECHNOLOGIST: Location: [facility] Patient: Kimberlee Tran : 1945 Visit/Account:[id number] Date of Sevice: 11/30/2017 2 VIEWS CHEST INDICATION: Cough, history of cancer COMPARISON: None available FINDINGS: Heart size within normal limits. Small bilateral pleural effusions. Airspace consolidation is noted left lower lobe posteriorly. Port overlies the right chest, tip central portion superior vena cava. IMPRESSION: 1. Small bilateral pleural effusions. Left lower lobe airspace consolidation which may represent infi ltrate, atelectasis or aspiration. Report Dictated By: Surendra Caceres MD at 11/30/2017 6:20 PM Report E-Signed By: Surendra Caceres MD at 11/30/2017 6:21 PM [id number]
--- NOTE | 2017-11-30 18:57 | RADIOLOGY IMAGING REPORT ---
[place] [facility] [place] NAME: Kimberlee Tran : 1945 MR: [id number] V: [id number] EXAM DATE: ORDERING PHYSICIAN: KONSTANTIN HYLTON TECHNOLOGIST: Location: [facility] Patient: Kimberlee Tran : 1945 Visit/Account:[id number] Date of Sevice: 11/30/2017 ABDOMEN/PELVIS WITH CONTRAST Additional pertinent History: Abdominal pain. Constipation. History of ovarian metastases TECHNIQUE: Spiral scan was through the abdomen and pelvis during injection of nonionic iodinated in travenous contrast. Contrast: 75 mL of IV [id number]. COMPARISON STUDIES: 10/19/2017. One of the following dose optimization techniques was utilized in the performance of this exam: Autom ated exposure control; adjustment of the mA and/or kV according to the patient's size; or use of an i terative reconstruction technique. Specific details can be referenced in the facility's radiology C T exam operational policy. FINDINGS: Liver / biliary: No liver lesions. Perihepatic peritoneal metastases identified. Gallstone. Pancreas: negative Spleen: negative Adrenal glands: negative Kidneys / retroperitoneum: Increasing left hydronephrosis compared to the previous study. Pelvic structures: Hysterectomy. Pelvic metastatic which appears to be slightly more conspicuous than the previous study. Bowel / peritoneum / mesenteries: There are numerous peritoneal and mesenteric soft tissue masses com patible with omental caking and peritoneal metastases which are increasing in conspicuity and number when compared to the previous study. There is increasing ascites. Vessels: negative Musculoskeletal / Body wall: negative Lymph node assessment: negative Lower chest: Interval development of bilateral effusions and volume loss/consolidative change when co mpared to the previous study IMPRESSION: 1. Increasing ascites and omental/peritoneal metastases when compared to the previous study. 2. Increasing left hydronephrosis with the previous study. 3. Interval development of bilateral effusions and atelectasis. Report Dictated By: Ayan Saldivar MD at 11/30/2017 6:41 PM Report E-Signed By: Ayan Saldivar MD at 11/30/2017 6:53 PM WSN:[id number]
[2017-11-30 20:00] VITALS: BP 110/46
[2017-11-30] MEDS ORDERED: MAGNESIUM CITRATE 300 ML BTL PO ONE (20:10)
[2017-11-30] MEDS ORDERED: HEPARIN FLSH (PORT) 500 UN/5ML ONE (20:31)
== END 2017-11-30 20:38 | disposition home or self-care (01) ==
LOC: ER 16:48
DX: R18.0 Malignant ascites (principal)
CPT/HCPCS: 71046; 74177; 81001; 85025; 96361; 96374; 96375; 99284; A4353; A9270; J1200; J1642; J2550; J3010; J7040; Q9967; 82040; 82247; 82310; 82374; 82435; 82565; 82947; 84075; 84132; 84155; 84295; 84450; 84460; 84520

== ENCOUNTER → 2017-12-03 | Outpatient (CLI) | payer MEDICARE, OTHER ==
[2016-10-27 08:04] VITALS: BMI 20.1
[2017-12-03 14:32] LABS: PLATELET COUNT, AUTOMATED 220 K/uL (150-450)
== END ==
LOC: LAB 14:04
PROVIDERS: ATTEND Homeopath
DX: C56.9 Malignant neoplasm of unspecified ovary (principal)
CPT/HCPCS: 36415; 82040; 82247; 82310; 82374; 82435; 82565; 82947; 83615; 84075; 84132; 84155; 84295; 84450; 84460; 84520; 85025; 85651

== ENCOUNTER → 2017-12-10 | Outpatient (CLI) | payer MEDICARE, OTHER ==
[2016-10-27 08:04] VITALS: BMI 20.1
[2017-12-10 12:46] LABS: INR 0.96
--- NOTE | 2017-12-10 17:38 | RADIOLOGY IMAGING REPORT ---
FACILITY: [facility] [place] PATIENT NAME: Kimberlee Tran : 1945 MR: [id number] V: [id number] EXAM DATE: ORDERING PHYSICIAN: HILARY PEACOCK TECHNOLOGIST: Location: [facility] Patient: Kimberlee Tran : 1945 Visit/Account:[id number] Date of Sevice: 12/10/2017 EXAMINATION: Ultrasound-guided thoracentesis Ultrasound directed paracentesis FINDINGS: The right lower quadrant was prepped draped and anesthetized 1% buffered lidocaine. Utilizing ultras ound guidance a Yueh needle was advanced within the fluid. A total of 4070 mL of fluid were successf ully evacuated. IMPRESSION: 1. Successful ultrasound directed paracentesis. Report Dictated By: Ayan Saldivar MD at 12/10/2017 5:32 PM Report E-Signed By: Ayan Saldivar MD at 12/10/2017 5:35 PM WSN:[email or web address]
== END ==
LOC: US 12:22
PROVIDERS: ATTEND Internal Medicine Medical Oncology
DX: G35 Multiple sclerosis (principal)
CPT/HCPCS: 36415; 49083; 85610; A7048

== ENCOUNTER → 2017-12-18 | Outpatient (CLI) | payer MEDICARE, OTHER ==
[2016-10-27 08:04] VITALS: BMI 20.1
[2017-12-18 11:02] LABS: INR 0.96
--- NOTE | 2017-12-18 15:19 | RADIOLOGY IMAGING REPORT ---
FACILITY: [facility] [place] PATIENT NAME: Kimberlee Tran : 1945 MR: [id number] V: [id number] EXAM DATE: ORDERING PHYSICIAN: HILARY PEACOCK TECHNOLOGIST: Location: [facility] [place] Patient: Kimberlee Tran : 1945 Visit/Account:[id number] Date of Sevice: 12/18/2017 Exam type: PARACENTESIS History: Ovarian cancer with ascites Comparison: December 10, 2017. Findings: Informed consent was obtained. The right-sided the patient's abdomen was prepped and draped usual st erile fashion. Local anesthesia was accomplished with 1% lidocaine. Under sonographic guidance a pa racentesis catheter was advanced percutaneously into the right lower abdomen. Approximately 2940 mL of blood-tinged ascites was removed from the abdominal cavity. The procedure was accomplished withou t apparent complication. IMPRESSION: 1. Successful sonographically guided paracentesis with interval removal of 2940 mL of blood-tinged a scitic fluid Report Dictated By: Rowan Scott MD at 12/18/2017 3:13 PM Report E-Signed By: Rowan Scott MD at 12/18/2017 3:14 PM JOHNATHANN:MAYRA
== END ==
LOC: US 10:33
PROVIDERS: ATTEND Internal Medicine Medical Oncology
DX: R18.8 Other ascites (principal); G35 Multiple sclerosis
CPT/HCPCS: 36415; 49083; 85610; A7048

== ENCOUNTER → 2017-12-21 | Outpatient (CLI) | payer MEDICARE, OTHER ==
[2016-10-27 08:04] VITALS: BMI 20.1
[2017-12-21 10:32] LABS: PLATELET COUNT, AUTOMATED 219 K/uL (150-450)
== END ==
LOC: LAB 10:12
PROVIDERS: ATTEND Homeopath
DX: D56.9 Thalassemia, unspecified (principal)
CPT/HCPCS: 36415; 82040; 82247; 82310; 82374; 82435; 82565; 82947; 83615; 84075; 84132; 84155; 84295; 84450; 84460; 84520; 85025; 85651

== ENCOUNTER 2017-12-22 19:38 | Emergency (ER) | payer MEDICARE, OTHER ==
[2016-10-27 08:04] VITALS: Wt 47.6 kg
--- NOTE | 2017-12-22 20:00 | ER Report ---
History and Physical Time Seen By MD: 20:00 HPI/ROS CHIEF COMPLAINT: Abdominal pain HISTORY OF PRESENT ILLNESS: 72-year-old female patient presents to emergency room with complaint of abdominal pain. Patient states that she has been having increasing discomfort for the last several days. Patient has been diagnosed with stage IIc ovarian cancer. She has been found to have ascites. She has had 2 paracentesis, one last Thursday, when the Thursday before. Patient states she's had increasing discomfort since her last paracentesis. She denies having any fevers, chills, nausea, vomiting or diarrhea. Patient states that she has not had a bowel movement in several days. She states she's been taking some magnesium ci trate for that with no improvement. REVIEW OF SYSTEMS: Respiratory: No cough, no dyspnea. Cardiovascular: No chest pain, no palpitations. Gastrointestinal: As noted above Musculoskeletal: No back pain. Allergies: Coded Allergies: Penicillins (Verified Allergy, Severe, Angioedema and hives, 11/03/16) Sulfa (Sulfonamide Antibiotics) (Verified Allergy, Severe, facial swelling and hives, 11/03/16) nitrofurantoin (Verified Allergy, Severe, Angioedema and hives, 11/03/16) oxycodone (Verified Allergy, Intermediate, ITCHING and hives, 11/03/16) albumin human (Verified Allergy, Unknown, 11/11/17) dimethyl fumarate (Verified Allergy, Unknown, 11/11/17) glatiramer (copolymer 1) (Verified Allergy, Unknown, 11/11/17) interferon beta-1a (Verified Allergy, Unknown, 11/11/17) ondansetron (Verified Allergy, Unknown, Itching, 11/03/16) zolpidem (Verified Allergy, Unknown, 11/11/17) Home Meds Active Scripts Promethazine Hcl (PROMETHAZINE HCL) 25 Mg Tablet, 25 MG PO Q8H PRN for NAUSEA/VOMITING, #20 TAB 0 Refills Prov:AGUSTIN MADDOX MD 11/11/17 Meclizine Hcl (MECLIZINE HCL) 25 Mg Tablet, 25 MG PO Q8H PRN for DIZZINESS, #20 TAB 0 Refills Prov:AGUSTIN MADDOX MD 11/11/17 Scopolamine (Scopolamine) 1 Mg/3 Day Patch.td.3, 1 PATCH.72H TD Q3D, #10 PATCH.72H 0 Refills Prov:AGUSTIN MADDOX MD 11/11/17 Tetrahydrozoline Hcl (EYE DROPS) 15 Ml Drops, 15 ML OP 2-3XD for 90 Days, Prov:VIN BROWN MD 06/26/17 Reported Medications [polyMva] No Conflict Check 11/30/17 [artemisinin] No Conflict Check 11/30/17 Potassium Chloride (POTASSIUM CHLORIDE) 10 Meq Tab.er.prt, 10 MEQ PO QDAY for 30 Days, #30 0 Refills 11/11/17 [place]lor[place] Phosphate (CHLOROQUINE PHOSPHATE) 500 Mg Tablet, 500 MG PO QDAY 11/11/17 Estradiol (VAGIFEM) 10 Mcg Tablet, 10 MCG VG 2XW 11/11/17 Phenobarb/Hyoscy/Atropine/Scop ( TABLET) 16.2 Mg Tablet, 16.2 MG PO PRN 11/11/17 Cholecalciferol (Vitamin D3) (VITAMIN D3) 1,000 Unit Tablet, 2500 UNIT PO QDAY, TAB 11/11/17 [Protandim] No Conflict Check, 1 TAB PEG QHS 10/16/17 Meloxicam (MELOXICAM) 15 Mg Tablet, 7.5 MG PO QDAY 10/16/17 Lactobacillus Combination No.4 (PROBIOTIC) 1 Each Capsule, 1 EACH PO QDAY, CAPSULE 1 OUNCE LIQUID LACTOBACILLUS 07/02/16 [place]-3 Fatty Acids/Fish Oil ([place] 3 FISH OIL SOFTGEL) 1 Each Capsule.dr, 2 EACH PO QDAY 07/02/16 Multivitamin (MULTI-DAY VITAMINS) 1 Each Tablet, 1 EACH PO QDAY 07/02/16 Magnesium Oxide (MAGNESIUM) 250 Mg Tablet, 500 MG PO QDAY 07/02/16 Calcium Carb/Vit D3/Mag11/Zinc (LFHFCBJ-UOU-YAMK-VIT D TABLET) 1 Each Tablet, 1 EACH PO QDAY 07/02/16 Aspirin (ASPIR 81) 81 Mg Tablet.dr, 81 MG PO QDAY, TAB 07/02/16 Past Medical/Surgical History Patient has a past medical history of MS, left bundle branch block, IBS, urinary urgency, ovarian cancer, vertebral fracture, alcohol use. Patient has surgical history of a mole removed, hysterectomy, bladder scope. Reviewed Nurses Notes: Yes Hx Smoking: No Smoking Status: Never Smoker Exposure to Second Hand Smoke?: No Hx Substance Use Disorder: No Hx Alcohol Use: Yes (1-2 drink per wk) Constitutional Vital Sign - Last 24 Hours 12/22/17 12/22/17 12/22/17 12/22/17 19:54 21:00 21:15 21:30 Temp 98.1 Pulse 78 81 77 85 Resp 16 B/P (MAP) 115/70 111/55 (73) 105/72 (83) Pulse Ox 94 98 94 98 O2 Delivery Room Air Room Air Physical Exam General Appearance: The patient is alert, has no immediate need for airway protection and no current signs of toxicity. Respiratory: Chest is non tender, lungs are clear to auscultation. Cardiac: regular rate and rhythm Gastrointestinal: Abdomen is distended and mildly tender tender, no masses, bowel sounds normal. Musculoskeletal: Neck: Neck is supple and non tender. Extremities have full range of motion and are non tender. Skin: No rashes or lesions. DIFFERENTIAL DIAGNOSIS: After history and physical exam differential diagnosis was considered for constipation, ascites. Medical Decision Making EKG/Imaging Imaging Exam type: ACUTE ABDOMEN SERIES 3 VIEW INDICATION: Constipation COMPARISON: CT dated November 30, 2017. FINDINGS: Right chest wall port catheter with tip projecting over the distal SVC. Heart size within normal limits. There is no focal infiltrate or consolidation. No evidence of pneumothorax or pleural effusion. There appear to be air-fluid levels within the bowel without prominent loops identified. Moderate volume stool within the distal colon and rectum. There are no pathologic calcifications identified. No evidence of free air under the right hemidiaphragm. IMPRESSION: 1. No acute cardiopulmonary process. 2. Moderate volume stool within the distal colon and rectum. Report Dictated By: Tone Lewis MD at 12/22/2017 8:49 PM Report E-Signed By: Tone Lewis MD at 12/22/2017 8:51 PM ED Course/Re-evaluation ED Course Patient was admitted to an exam room, history and physical were obtained. Differential diagnoses were considered. On examination lungs are clear, heart is regular, abdomen is distended and mildly tender. With patient being seen recently both by her primary care provider as well as here in the emergency room I refrain from ordering any lab tests. An acute abdominal x-ray series was done. It did show significant amount of stool in the distal colon. I believe the constipation is part of her problem, as well as for ascites. Patient was treated with an enema. I did call and speak with radiology. They will try and schedule her for a paracentesis tomorrow. I do have concerns about doing repeat paracentesis for the risk of infection, however I believe this is something should be done to help with the patient's comfort. I discussed this with the patient and her and they verbalized understanding and agreement with plan. Decision to Disposition Date: Dec 22, 2017 Decision to Disposition Time: 22:08 Depart Departure Latest Vital Signs Vital Signs Date Time Temp Pulse Resp B/P (MAP) Pulse Ox O2 Delivery O2 Flow Rate FiO2 12/22/17 21:30 85 105/72 (83) 98 Room Air 12/22/17 19:54 98.1 16 Impression: Primary Impression: Constipation Additional Impression: Ascites Condition: Improved Disposition: HOME OR SELF-CARE Referrals: INA TABARES MD (PCP) Patient Instructions: Constipation (ED) Additional Instructions: Increase fluid intake. Increase exercise. [facility] in the [facility]. Take Miralax, 1 capful, daily. Return to the ER if condition worsens. Take the other 1/2 bottle of Mag Citrate tomorrow morning. Radiology will call tomorrow to make an appointment for the Paracentesis. Problem Qualifiers Primary Impression: Constipation Constipation type: unspecified constipation type Qualified Codes: K59.00 - Constipation, unspecified Additional Impression: Ascites Ascites type: malignant Qualified Codes: R18.0 - Malignant ascites BEAN LEAVITT Dec 22, 2017 20:00
--- NOTE | 2017-12-22 20:55 | RADIOLOGY IMAGING REPORT ---
FACILITY: [facility] PATIENT NAME: Kimberlee Tran : 1945 MR: [id number] V: [id number] EXAM DATE: ORDERING PHYSICIAN: EBAN LEAVITT TECHNOLOGIST: [facility] Patient: Kimberlee Tran : 1945 Visit/Account:[id number] Date of Sevice: 12/22/2017 Exam type: ACUTE ABDOMEN SERIES 3 VIEW INDICATION: Constipation COMPARISON: CT dated November 30, 2017. FINDINGS: Right chest wall port catheter with tip projecting over the distal SVC. Heart size within n ormal limits. There is no focal infiltrate or consolidation. No evidence of pneumothorax or pleural e ffusion. There appear to be air-fluid levels within the bowel without prominent loops identified. Moderate vol ume stool within the distal colon and rectum. There are no pathologic calcifications identified. No e vidence of free air under the right hemidiaphragm. IMPRESSION: 1. No acute cardiopulmonary process. 2. Moderate volume stool within the distal colon and rectum. Report Dictated By: Tone Lewis MD at 12/22/2017 8:49 PM Report E-Signed By: Tone Lewis MD at 12/22/2017 8:51 PM WSN:[id number]
[2017-12-22 21:30] VITALS: BP 105/72
== END 2017-12-22 22:21 | disposition home or self-care (01) ==
LOC: ER 20:09
DX: K59.00 Constipation, unspecified (principal); R18.0 Malignant ascites
CPT/HCPCS: 74022; 99283

== ENCOUNTER → 2017-12-25 | Outpatient (CLI) | payer MEDICARE, OTHER ==
[2016-10-27 08:04] VITALS: BMI 20.1
--- NOTE | 2017-12-28 09:51 | RADIOLOGY IMAGING REPORT ---
FACILITY: [facility] PATIENT NAME: Kimberlee Tran : 1945 MR: [id number] V: [id number] EXAM DATE: ORDERING PHYSICIAN: HILARY PEACOCK TECHNOLOGIST: Location: [facility] Patient: Kimberlee Tran : 1945 Visit/Account:[id number] Date of Sevice: 12/25/2017 Exam type: PARACENTESIS History: Ascites Comparison: December 18, 2017. Findings: Informed consent was obtained. The right side of the patient's abdomen was prepped and draped usual sterile fashion. Local anesthesia was accomplished with 1% lidocaine. Under sonographic guidance a eTimesheets.comeh catheter was advanced percutaneously into the right lateral perineal cavity. Approximately 3250 mL of ascites were removed from the abdominal cavity without apparent complication. IMPRESSION: 1. Successful sonographically guided paracentesis with interval removal of 3250 mL of ascites Report Dictated By: Rowan Scott MD at 12/28/2017 9:45 AM Report E-Signed By: Rowan Scott MD at 12/28/2017 9:46 AM WSN:[email or web address]
== END ==
LOC: US 12:06
PROVIDERS: ATTEND Internal Medicine Medical Oncology
DX: G35 Multiple sclerosis (principal); R18.8 Other ascites
CPT/HCPCS: 49083; A7048

== ENCOUNTER → 2017-12-25 | Outpatient (CLI) | payer MEDICARE, OTHER ==
[2016-10-27 08:04] VITALS: BMI 20.1
[2017-12-25 12:36] LABS: PLATELET COUNT, AUTOMATED 245 K/uL (150-450)
== END ==
LOC: LAB 12:04
PROVIDERS: ATTEND Homeopath
DX: C56.9 Malignant neoplasm of unspecified ovary (principal)
CPT/HCPCS: 36415; 82040; 82247; 82310; 82374; 82435; 82565; 82947; 83615; 84075; 84132; 84155; 84295; 84450; 84460; 84520; 85025; 85651

== ENCOUNTER 2018-01-01 18:11 | Emergency (ER) | payer MEDICARE, OTHER ==
[2016-10-27 08:04] VITALS: Wt 47.6 kg
--- NOTE | 2018-01-01 18:15 | ER Report ---
History and Physical Time Seen By MD: 18:15 HPI/ROS CHIEF COMPLAINT: Dominant wall swelling and leakage from paracentesis site HISTORY OF PRESENT ILLNESS: 72-year-old female with a history of malignant ascites secondary to ovarian cancer. She undergoes paracentesis once weekly to remove excessive fluid. She's 1 day out from having the procedure done. She notes induration and swelling around the puncture wound site in the lateral aspect. There is some leakage of fluid coming out of the site. Allergies: Coded Allergies: Penicillins (Verified Allergy, Severe, Angioedema and hives, 11/03/16) Sulfa (Sulfonamide Antibiotics) (Verified Allergy, Severe, facial swelling and hives, 11/03/16) nitrofurantoin (Verified Allergy, Severe, Angioedema and hives, 11/03/16) oxycodone (Verified Allergy, Intermediate, ITCHING and hives, 11/03/16) albumin human (Verified Allergy, Unknown, 11/11/17) dimethyl fumarate (Verified Allergy, Unknown, 11/11/17) glatiramer (copolymer 1) (Verified Allergy, Unknown, 11/11/17) interferon beta-1a (Verified Allergy, Unknown, 11/11/17) ondansetron (Verified Allergy, Unknown, Itching, 11/03/16) zolpidem (Verified Allergy, Unknown, 11/11/17) Home Meds Active Scripts Promethazine Hcl (PROMETHAZINE HCL) 25 Mg Tablet, 25 MG PO Q8H PRN for NAUSEA/VOMITING, #20 TAB 0 Refills Prov:AGUSTIN MADDOX MD 11/11/17 Meclizine Hcl (MECLIZINE HCL) 25 Mg Tablet, 25 MG PO Q8H PRN for DIZZINESS, #20 TAB 0 Refills Prov:AGUSTIN MADDOX MD 11/11/17 Scopolamine (Scopolamine) 1 Mg/3 Day Patch.td.3, 1 PATCH.72H TD Q3D, #10 PATCH.72H 0 Refills Prov:AGUSTIN MADDOX MD 11/11/17 Tetrahydrozoline Hcl (EYE DROPS) 15 Ml Drops, 15 ML OP 2-3XD for 90 Days, Prov:VIN BROWN MD 06/26/17 Reported Medications [polyMva] No Conflict Check 11/30/17 [artemisinin] No Conflict Check 11/30/17 Potassium Chloride (POTASSIUM CHLORIDE) 10 Meq Tab.er.prt, 10 MEQ PO QDAY for 30 Days, #30 0 Refills 11/11/17 Chloroquine Phosphate (CHLOROQUINE PHOSPHATE) 500 Mg Tablet, 500 MG PO QDAY 11/11/17 Estradiol (VAGIFEM) 10 Mcg Tablet, 10 MCG VG 2XW 11/11/17 Phenobarb/Hyoscy/Atropine/Scop ( TABLET) 16.2 Mg Tablet, 16.2 MG PO PRN 11/11/17 Cholecalciferol (Vitamin D3) (VITAMIN D3) 1,000 Unit Tablet, 2500 UNIT PO QDAY, TAB 11/11/17 [Protandim] No Conflict Check, 1 TAB PEG QHS 10/16/17 Meloxicam (MELOXICAM) 15 Mg Tablet, 7.5 MG PO QDAY 10/16/17 Lactobacillus Combination No.4 (PROBIOTIC) 1 Each Capsule, 1 EACH PO QDAY, CAPSULE 1 OUNCE LIQUID LACTOBACILLUS 07/02/16 [place]-3 Fatty Acids/Fish Oil (OMEGA 3 FISH OIL SOFTGEL) 1 Each Capsule.dr, 2 EACH PO QDAY 07/02/16 Multivitamin (MULTI-DAY VITAMINS) 1 Each Tablet, 1 EACH PO QDAY 07/02/16 Magnesium Oxide (MAGNESIUM) 250 Mg Tablet, 500 MG PO QDAY 07/02/16 Calcium Carb/Vit D3/Mag11/Zinc (WMCMSZX-KZI-FUSM-VIT D TABLET) 1 Each Tablet, 1 EACH PO QDAY 07/02/16 Aspirin (ASPIR 81) 81 Mg Tablet.dr, 81 MG PO QDAY, TAB 07/02/16 Past Medical/Surgical History Metastatic ovarian cancer Reviewed Nurses Notes: Yes Old Medical Records Reviewed: Yes Hx Smoking: No Smoking Status: Never Smoker Exposure to Second Hand Smoke?: No Hx Substance Use Disorder: No Hx Alcohol Use: Yes (1-2 drink per wk) Constitutional Vital Sign - Last 24 Hours 01/01/18 18:20 Temp 97.6 Pulse 78 Resp 16 B/P (MAP) 121/60 Pulse Ox 97 O2 Delivery Room Air Physical Exam General appearance: Alert no distress. Vital signs stable, afebrile, pulse ox normal Respiratory: Chest is non tender, lungs are clear to auscultation. Cardiac: Regular rate and rhythm Abdomen: There is a puncture wound site in the right lower abdomen from a paracentesis at was performed. There is induration adjacent to the area under the skin. There is no erythema or warmth. There is serosanguineous fluid, saturating the dressing. A pressure dressing was applied to the site with Tegaderm to help seal. The puncture wound. DIFFERENTIAL DIAGNOSIS: After history and physical exam differential diagnosis was considered for leaking paracentesis site. Medical Decision Making ED Course/Re-evaluation ED Course Patient was admitted to an examination room. H&P was done. The differential diagnoses was considered. Patient's site shows no signs of infection. There is leaking of paracentesis fluid from the abdominal cavity at the site. There is some induration of the skin. A sterile dressing was applied over the site and a pressure dressing was applied with a large packing of 4 x 4's. Elastic tape was used. As well as a elastic abdominal binder to put pressure in the area. Patient's advised to follow-up with oncology clinic if unimproved in 2 days. Decision to Disposition Date: Jan 01, 2018 Decision to Disposition Time: 18:32 Depart Departure Latest Vital Signs Vital Signs Date Time Temp Pulse Resp B/P (MAP) Pulse Ox O2 Delivery O2 Flow Rate FiO2 01/01/18 18:20 97.6 78 16 121/60 97 Room Air Impression: Primary Impression: Puncture wound of abdomen Additional Impression: History of abdominal paracentesis Condition: Improved Disposition: HOME OR SELF-CARE Referrals: INA TABARES MD (PCP) Patient Instructions: Puncture Wound (ED) Additional Instructions: Wear abdominal pressure dressing for 2-3 days. Follow-up with oncology clinic for recheck on Thursday or Thursday next week Return to the ER for any fever, pain or excessive bleeding Problem Qualifiers Primary Impression: Puncture wound of abdomen Encounter type: initial encounter Qualified Codes: S31.139A - Puncture wound of abdominal wall without foreign body, unspecified quadrant without penetration into peritoneal cavity, initial encounter CHERELLE JOLLY DO Jan 01, 2018 18:15
[2018-01-01 18:20] VITALS: BP 121/60
[2018-01-06] MEDS ORDERED: MISTLETOE PO (12:19)
[2018-01-06] MEDS ORDERED: [UNRECOGNIZED DRUG - OTHER] PO (12:19)
[2018-01-06] MEDS ORDERED: [UNRECOGNIZED DRUG - CODE] PO (12:19)
[2018-01-06] MEDS ORDERED: SODI1POW MC (12:19)
[2018-01-06] MEDS ORDERED: FURO-45 PO (12:21)
== END 2018-01-01 18:40 | disposition home or self-care (01) ==
LOC: ER 18:17
DX: S31.139A Puncture wound of abdominal wall without foreign body, unspecified quadrant without penetration into peritoneal cavity, initial encounter (principal)
CPT/HCPCS: 36415; 49083; 82040; 82247; 82310; 82374; 82435; 82565; 82947; 83615; 84075; 84132; 84155; 84295; 84450; 84460; 84520; 85025; 85651; 99281; A7048

== ENCOUNTER → 2018-01-01 | Outpatient (CLI) | payer MEDICARE, OTHER ==
[2016-10-27 08:04] VITALS: BMI 20.1
[2018-01-01 13:06] LABS: PLATELET COUNT, AUTOMATED 214 K/uL (150-450)
== END ==
LOC: LAB 12:40
PROVIDERS: ATTEND Homeopath
DX: C56.9 Malignant neoplasm of unspecified ovary (principal)
CPT/HCPCS: 36415; 82040; 82247; 82310; 82374; 82435; 82565; 82947; 83615; 84075; 84132; 84155; 84295; 84450; 84460; 84520; 85025; 85651

== ENCOUNTER → 2018-01-01 | Outpatient (CLI) | payer MEDICARE, OTHER ==
[2016-10-27 08:04] VITALS: BMI 20.1
--- NOTE | 2018-01-01 16:06 | RADIOLOGY IMAGING REPORT ---
FACILITY: [facility] PATIENT NAME: Kimberlee Tran : 1945 MR: [id number] V: [id number] EXAM DATE: [id number] ORDERING PHYSICIAN: SERA HASSAN TECHNOLOGIST: Location: [facility] [place] Patient: Kimberlee Tran : 1945 Visit/Account:[id number] Date of Sevice: 01/01/2018 Exam type: PARACENTESIS History: Ovarian cancer with ascites Comparison: December 25, 2017. Findings: The patient's right lower abdomen was prepped and draped usual sterile fashion. Local anesthesia was accomplished 1% lidocaine. Under sonographic guidance a [employer] catheter was advanced percutaneously i nto the anterior right inferior peritoneal cavity. 2810 mL of ascites were removed from the peritone al cavity. The procedure was accomplished without apparent complication. IMPRESSION: 1. Successful sonographically guided paracentesis with interval removal of 2810 mL of ascites Report Dictated By: Rowan Scott MD at 01/01/2018 4:00 PM Report E-Signed By: Rowan Scott MD at 01/01/2018 4:02 PM WSN:[email or web address]
== END ==
LOC: US 03:29
PROVIDERS: ATTEND Nurse Practitioner
DX: G35 Multiple sclerosis (principal); R18.8 Other ascites
CPT/HCPCS: 49083; A7048

== ENCOUNTER → 2018-01-05 | Outpatient (CLI) | payer MEDICARE, OTHER ==
[2016-10-27 08:04] VITALS: BMI 20.1
[~2018-01-05] MED LIST changes: +FURO-45 PO; +MISTLETOE PO; +SODI1POW MC; +[UNRECOGNIZED DRUG - CODE] PO; +[UNRECOGNIZED DRUG - OTHER] PO
[2018-01-05 10:09] LABS: PLATELET COUNT, AUTOMATED 188 K/uL (150-450)
== END ==
LOC: LAB 09:53
PROVIDERS: ATTEND Homeopath
DX: C56.9 Malignant neoplasm of unspecified ovary (principal)
CPT/HCPCS: 36415; 82040; 82247; 82310; 82374; 82435; 82565; 82947; 83615; 84075; 84132; 84155; 84295; 84450; 84460; 84520; 85025; 85651

== ENCOUNTER → 2018-01-06 | Outpatient (CLI) | payer MEDICARE, OTHER ==
[2016-10-27 08:04] VITALS: BMI 20.1
[~2018-01-06] MED LIST changes: +TRAM-420 PO
--- NOTE | 2018-01-06 14:01 | RADIOLOGY IMAGING REPORT ---
FACILITY: [facility] [place] PATIENT NAME: Kimberlee Tran : 1945 MR: [id number] V: [id number] EXAM DATE: ORDERING PHYSICIAN: INA SWENSON TECHNOLOGIST: Location: [facility] [place] Patient: Kimberlee Tran : 1945 Visit/Account:[id number] Date of Sevice: 01/06/2018 EXAMINATION: Abdominal ultrasound limited HISTORY: Ascites, primary ovarian cancer COMPARISON: January 01, 2018 FINDINGS: Multiple images of the abdomen were submitted demonstrating a moderate amount of ascites. The depth of the pocket in the right upper quadrant is 10.4 cm, and the left upper quadrant 8.3 cm, r ight lower quadrant 8.3 cm and left lower quadrant 8.08 cm. The largest pocket is in the right lower quadrant. Incidentally noted is a 2.1 cm gallstone IMPRESSION: A moderate amount of abdominal ascites. The largest pocket is in the right lower quadrant Incidental note of a 2.1 cm gallstone Report Dictated By: Rowan Scott MD at 01/06/2018 1:38 PM Report E-Signed By: Rowan Scott MD at 01/06/2018 1:56 PM WSN:[email or web address]
== END ==
LOC: US 01:04
PROVIDERS: ATTEND Surgery
DX: R18.8 Other ascites (principal)

== ENCOUNTER 2018-01-07 00:49 | Day surgery (SDC) | payer MEDICARE, OTHER ==
[2016-10-27 08:04] VITALS: Ht 162.6 cm; Wt 46.7 kg
[~2018-01-07] VITALS: Ht 162.6 cm; Wt 46.7 kg
[~2018-01-07 00:49] MED LIST changes: -TRAM-420 PO
[2018-01-07] MEDS ORDERED: fentaNYL CITR 100 MCG/2 ML AMP ONE ×2 (10:37→13:20)
[2018-01-07] MEDS ORDERED: PROPOFOL EMUL(*) 10MG/ML 20 ML 20 ML ONE (10:38)
[2018-01-07] MEDS ORDERED: LIDOCAINE MPF 1% 5 ML VIAL ONE (10:38)
[2018-01-07 10:44] VITALS: BP 120/71
[2018-01-07] MEDS ORDERED: ROCURONIUM BROM 10 MG/ML 5 ML ONE (10:45)
[2018-01-07] MEDS ORDERED: LIDOCAINE 1%MDV(*)200 MG/20 ML 0 ML ONE (11:22)
[2018-01-07] MEDS ORDERED: ROPIVACAINE 0.5% 20 ML VIAL ONE (11:22)
[2018-01-07] MEDS ORDERED: LIDOCAINE/SOD BICARB 8.4% SYR ID ONE (11:30)
[2018-01-07] MEDS ORDERED: FAMOTIDINE 20 MG TAB PO ONE (11:30)
[2018-01-07] MEDS ORDERED: metroNIDAZOLE* 500MG/100ML BAG 100 ML IVPB ONE (11:30)
[2018-01-07] MEDS ORDERED: MIDAZOLAM 2 MG/2 ML VIAL IVP PRN (11:30)
[2018-01-07] MEDS ORDERED: NORMOSOL R SOLN(*) 1000 ML BAG 1,000 ML IV PRN (11:30)
[2018-01-07] MEDS ORDERED: LEVOFLOXACIN/D5W*500 MG/100 ML 100 ML IVPB ONE (11:30)
[2018-01-07] MEDS ORDERED: DEXAMETHASONE SOD 4 MG/ML VIAL ONE (11:54)
[2018-01-07] MEDS ORDERED: ONDANSETRON 4 MG/2 ML VIAL ONE (11:55)
[2018-01-07] MEDS ORDERED: SUGAMMADEX SOD 200 MG/2 ML SDV ONE (12:14)
[2018-01-07] MEDS ORDERED: TRAM-420 PO (12:55)
--- NOTE | 2018-01-07 13:03 | Short(Outpt) Discharge Summary ---
Discharge Summary Reason for Hosp/Final Diag: (1) Ovarian cancer Status: Chronic Hospital Course & Plan: Laparoscopic peritoneal catheter placement completed without problems. (2) Ascites Status: Acute Departure Discharge to: Home, Home Health Discharge Instructions Home Meds Active Scripts Tramadol Hcl (TRAMADOL HCL) 50 Mg Tablet, 1-2 TAB PO Q4H PRN for PAIN, #30 TAB 0 Refills Prov:INA SWENSON MD 01/07/18 Promethazine Hcl (PROMETHAZINE HCL) 25 Mg Tablet, 25 MG PO Q8H PRN for NAUSEA/VOMITING, #20 TAB 0 Refills Prov:AGUSTIN MADDOX MD 11/11/17 Meclizine Hcl (MECLIZINE HCL) 25 Mg Tablet, 25 MG PO Q8H PRN for DIZZINESS, #20 TAB 0 Refills Prov:AGUSTIN MADDOX MD 11/11/17 Tetrahydrozoline Hcl (EYE DROPS) 15 Ml Drops, 15 ML OP 2-3XD for 90 Days, Prov:VIN BROWN MD 06/26/17 Reported Medications Furosemide (FUROSEMIDE) 20 Mg Tablet, 0.5 TAB PO QDAY, TAB 01/06/18 Sodium Selenite (SODIUM SELENITE) 1 Gm Powder, 1 GM MC QDAY 01/06/18 [Gcmaf] No Conflict Check, 60 MG PO QDAY 01/06/18 [M[place]toe] No Conflict Check, PO QDAY 01/06/18 [artemisinin] No Conflict Check 11/30/17 Potassium Chloride (POTASSIUM CHLORIDE) 10 Meq Tab.er.prt, 10 MEQ PO QDAY for 30 Days, #30 0 Refills 11/11/17 Cholecalciferol (Vitamin D3) (VITAMIN D3) 1,000 Unit Tablet, 2500 UNIT PO QDAY, TAB 11/11/17 Lactobacillus Combination No.4 (PROBIOTIC) 1 Each Capsule, 1 EACH PO QDAY, CAPSULE 1 OUNCE LIQUID LACTOBACILLUS 07/02/16 [place]-3 Fatty Acids/Fish Oil (OMEGA 3 FISH OIL SOFTGEL) 1 Each Capsule.dr, 2 EACH PO QDAY 07/02/16 Multivitamin (MULTI-DAY VITAMINS) 1 Each Tablet, 1 EACH PO QDAY 07/02/16 Magnesium Oxide (MAGNESIUM) 250 Mg Tablet, 500 MG PO QDAY 07/02/16 Calcium Carb/Vit D3/Mag11/Zinc (CTFWMWQ-KCC-OEPE-VIT D TABLET) 1 Each Tablet, 1 EACH PO QDAY 07/02/16 Aspirin (ASPIR 81) 81 Mg Tablet.dr, 81 MG PO QDAY, TAB 07/02/16 Discontinued Reported Medications [Gcmal] No Conflict Check, 60 MG PO 01/06/18 [polyMva] No Conflict Check 11/30/17 Chloroquine Phosphate (CHLOROQUINE PHOSPHATE) 500 Mg Tablet, 500 MG PO QDAY 11/11/17 Estradiol (VAGIFEM) 10 Mcg Tablet, 10 MCG VG 2XW 11/11/17 Phenobarb/Hyoscy/Atropine/Scop ( TABLET) 16.2 Mg Tablet, 16.2 MG PO PRN 11/11/17 [Protandim] No Conflict Check, 1 TAB PEG QHS 10/16/17 Meloxicam (MELOXICAM) 15 Mg Tablet, 7.5 MG PO QDAY 10/16/17 Discontinued Scripts Scopolamine (Scopolamine) 1 Mg/3 Day Patch.td.3, 1 PATCH.72H TD Q3D, #10 PATCH.72H 0 Refills Prov:AGUSTIN MADDOX MD 11/11/17 Follow up Referrals: General Surgery - 01/20/18 @ Surgery, General with INA SWENSON MD You have a follow up appointment scheduled with Dr. Swenson on 01/20/18, at 4:30pm. Diet: Regular Activity: As Tolerated Special Instructions: Leave all the dressings in place until your home health nurse drains the fluid from your abdomen. This probably won't be necessary until early next week but if your abdomen is filling with fluid making you uncomfortable or your incisions start leaking fluid, call your home health nurse company and have someone come out to your house and remove all the dressings and drain your abdomen sooner and place new drain dressings after drainage is complete. Your home health nurse can even remove the white surgical dressings during your next drainage procedure and then leave the incisions uncovered but leave the steristrips in place until they fall off on their own. I will remove the black stitches in 2 weeks when I see you back in my office. Please bring the dressing supplies for the drain with you to your follow up appointment with me so I can remove the dressing, remove the stitches, and place a new dressing on your drain. If your abdomen needs to be drained, we can drain it in the office as well if you bring the drainage bags with you to your appointment. Problem Qualifiers (1) Ovarian cancer: Laterality: unspecified laterality Qualified Codes: C56.9 - Malignant neoplasm of unspecified ovary (2) Ascites: Ascites type: malignant Qualified Codes: R18.0 - Malignant ascites INA SWENSON MD Jan 07, 2018 13:03
--- NOTE | 2018-01-07 13:10 | Post Operative Progress Note ---
Post Operative Progress Note Date: Jan 07, 2018 Time: 13:04 Surgeon: Janet Dictation number: [id number] Anesthesia: GETA by Dr. Christy Pre-Op Diagnosis: Stage IV ovarian cancer with recurring malignant ascites Post-Op Diagnosis: HAYDER Findings: Diffuse intraperitoneal metastatic tumor including peritoneal implants, liver mets, bowel mets, etc. Ascitic fluid appear bilious. Procedure(s): Laparoscopic indwelling tunneled peritoneal catheter placement Specimen Removed:(May be N/A): None Complications: None Fluids: see anesthesia record for IV fluids I evacuated 3L of ascitic fluid Estimated Blood Loss: Minimal Date OP Note Dictated: Jan 07, 2018 Time OP Note Dictated: 13:05 INA SWENSON MD Jan 07, 2018 13:10
[2018-01-07 14:20] VITALS: BP 106/50
--- NOTE | 2018-01-07 14:41 | OPERATIVE REPORT 1 ---
EVENT DATE: January 07, 2018 SURGEON: Arnulfo Gonzales M.D. ANESTHESIOLOGIST: Remy Christy M.D. ANESTHESIA: General endotracheal PREOPERATIVE DIAGNOSIS Stage IV ovarian cancer with recurrent malignant ascites. POSTOPERATIVE DIAGNOSIS Stage IV ovarian cancer with recurrent malignant ascites. PROCEDURE PERFORMED Laparoscopic placement of an indwelling tunneled peritoneal catheter. COMPLICATIONS None. CONDITION Stable. ESTIMATED BLOOD LOSS Minimal. FINDINGS This patient had diffuse intraperitoneal metastatic tumors involving her mesentery bowel, the peritoneum and the liver. The acidic fluid was very bilious in appearance. INDICATIONS This is a 72-year-old female who has ovarian cancer and it has become stage IV and she has been requiring weekly paracentesis, where almost 3L of fluid has been removed each time. She rapidly accumulates the fluid. I have been asked to place an indwelling peritoneal catheter to facilitate continuing drainage of her peritoneal cavity. DESCRIPTION OF PROCEDURE The patient was brought to the operating room and placed supine on the operating table. General endotracheal anesthesia was administered and her abdomen was prepped and draped in a sterile fashion. Time-out was completed and I injected the right subcostal skin with 0.5% bupivacaine plain and made a 5 mm incision. I used a Veress needle to access the peritoneal cavity. I insufflated the abdomen to a pressure of 15 mmHg and then inserted a 5 mm optical trocar under direct visualization into the patient's abdomen. I then placed one more 5 mm port in the right mid abdomen and then suctioned out 3L of acid fluid, which appeared very bilious. Gross inspection of the abdominal cavity reveled diffuse intraperitoneal metastatic tumors all over the place including the peritoneum, bowel, mesentery and liver. I then used the tunneler and made an incision in the right abdomen about the anterior axillary line just below the ribs and then used the tunneler and pulled the catheter from this incision to the port site in the right mid abdomen. I then threaded the catheter in the peritoneal cavity through the port site and then used a grasper and tracked it down towards the patient's pelvis. Then I closed the skin overlying this with a 4-0 Monocryl box-type stitch in the subcuticular position. This closed this nicely. I then placed the little clasp on the catheter as it exited the skin, making sure that the tissue end-growth cuff was about a centimeter from the skin opening and then I anesthetized the skin at this location and sewed in the clasp to secure the catheter with 0 silks. I then desufflated the abdominal cavity, removed the 5 mm port from the subcostal area and then closed with skin with a single 4-0 Monocryl box-type suture in the subcuticular position. I irrigated and dried the skin and placed steri-strips over the two port site incisions and covered these with sterile surgical dressings. Then I placed a drain dressing around the peritoneal drain and covered this with 4x4 gauze after curling it up and then Tegaderm. The patient was then awakened and extubated in the operating room and transported to the recovery room in stable condition, having tolerated the procedure without any apparent problems. ESTHER
[2018-01-07 15:05] VITALS: BP 100/46
[2018-01-07 15:35] VITALS: BP 96/48
[2018-01-07 15:38] VITALS: BP 91/50
[2018-01-07] MEDS ORDERED: HEPARIN FLSH (PORT) 500 UN/5ML ONE (15:40)
== END 2018-01-07 14:23 | disposition home or self-care (01) ==
LOC: OR 00:49
PROVIDERS: ATTEND Surgery
DX: C56.9 Malignant neoplasm of unspecified ovary (principal); R18.0 Malignant ascites
CPT/HCPCS: 49324; J1100; J1642; J2001; J2405; J2704; J2795; J3010; J3490

== ENCOUNTER 2018-01-09 11:16 | Emergency (ER) | payer MEDICARE, OTHER ==
[2016-10-27 08:04] VITALS: BMI 20.1
[~2018-01-09 11:16] MED LIST changes: +TRAM-420 PO
--- NOTE | 2018-01-09 11:27 | ER Report ---
History and Physical Time Seen By MD: 11:27 HPI/ROS CHIEF COMPLAINT: Constipation HISTORY OF PRESENT ILLNESS: 72-year-old female patient presents to emergency room with complaint of constipation. Patient states that she is not been able to have a bowel movement for the past 6 days. She states that she last had a bowel movement on Thursday. She started taking MiraLAX. This been no improvement with that. She did have surgery to have a drain placed for her ascites. She states that she has not had a bowel movement at that time. She denies any fevers, chills, nausea, vomiting or diarrhea. Patient is a she does have some discomfort, states this really hard to be up walking around. REVIEW OF SYSTEMS: Respiratory: No cough, no dyspnea. Cardiovascular: No chest pain, no palpitations. Gastrointestinal: As noted above Musculoskeletal: No back pain. Allergies: Coded Allergies: Penicillins (Verified Allergy, Severe, Angioedema and hives, 11/03/16) Sulfa (Sulfonamide Antibiotics) (Verified Allergy, Severe, facial swelling and hives, 11/03/16) nitrofurantoin (Verified Allergy, Severe, Angioedema and hives, 11/03/16) oxycodone (Verified Allergy, Intermediate, ITCHING and hives, 11/03/16) albumin human (Verified Allergy, Unknown, 11/11/17) dimethyl fumarate (Verified Allergy, Unknown, 11/11/17) glatiramer (copolymer 1) (Verified Allergy, Unknown, 11/11/17) interferon beta-1a (Verified Allergy, Unknown, 11/11/17) ondansetron (Verified Allergy, Unknown, Itching, 11/03/16) zolpidem (Verified Allergy, Unknown, 11/11/17) Home Meds Active Scripts Tramadol Hcl (TRAMADOL HCL) 50 Mg Tablet, 1-2 TAB PO Q4H PRN for PAIN, #30 TAB 0 Refills Prov:INA SWENSON MD 01/07/18 Promethazine Hcl (PROMETHAZINE HCL) 25 Mg Tablet, 25 MG PO Q8H PRN for NAUSEA/VO MITING, #20 TAB 0 Refills Prov:AGUSTIN MADDOX MD 11/11/17 Meclizine Hcl (MECLIZINE HCL) 25 Mg Tablet, 25 MG PO Q8H PRN for DIZZINESS, #20 TAB 0 Refills Prov:AGUSTIN MADDOX MD 11/11/17 Tetrahydrozoline Hcl (EYE DROPS) 15 Ml Drops, 15 ML OP 2-3XD for 90 Days, Prov:VIN BROWN MD 06/26/17 Reported Medications Furosemide (FUROSEMIDE) 20 Mg Tablet, 0.5 TAB PO QDAY, TAB 01/06/18 Sodium Selenite (SODIUM SELENITE) 1 Gm Powder, 1 GM MC QDAY 01/06/18 [Gcmaf] No Conflict Check, 60 MG PO QDAY 01/06/18 [[place]] No Conflict Check, PO QDAY 01/06/18 [artemisinin] No Conflict Check 11/30/17 Potassium Chloride (POTASSIUM CHLORIDE) 10 Meq Tab.er.prt, 10 MEQ PO QDAY for 30 Days, #30 0 Refills 11/11/17 Cholecalciferol (Vitamin D3) (VITAMIN D3) 1,000 Unit Tablet, 2500 UNIT PO QDAY, TAB 11/11/17 Lactobacillus Combination No.4 (PROBIOTIC) 1 Each Capsule, 1 EACH PO QDAY, CAPSULE 1 OUNCE LIQUID LACTOBACILLUS 07/02/16 [place]-3 Fatty Acids/Fish Oil (OMEGA 3 FISH OIL SOFTGEL) 1 Each Capsule.dr, 2 EACH PO QDAY 07/02/16 Multivitamin (MULTI-DAY VITAMINS) 1 Each Tablet, 1 EACH PO QDAY 07/02/16 Magnesium Oxide (MAGNESIUM) 250 Mg Tablet, 500 MG PO QDAY 07/02/16 Calcium Carb/Vit D3/Mag11/Zinc (XYBDHWQ-WZN-ATQJ-VIT D TABLET) 1 Each Tablet, 1 EACH PO QDAY 07/02/16 Aspirin (ASPIR 81) 81 Mg Tablet.dr, 81 MG PO QDAY, TAB 07/02/16 Discontinued Reported Medications [Gcmal] No Conflict Check, 60 MG PO 01/06/18 [polyMva] No Conflict Check 11/30/17 [place] Phosphate (CHLOROQUINE PHOSPHATE) 500 Mg Tablet, 500 MG PO QDAY 11/11/17 Estradiol (VAGIFEM) 10 Mcg Tablet, 10 MCG VG 2XW 11/11/17 Phenobarb/Hyoscy/Atropine/Scop ( TABLET) 16.2 Mg Tablet, 16.2 MG PO PRN 11/11/17 [Protandim] No Conflict Check, 1 TAB PEG QHS 10/16/17 Meloxicam (MELOXICAM) 15 Mg Tablet, 7.5 MG PO QDAY 10/16/17 Discontinued Scripts Scopolamine (Scopolamine) 1 Mg/3 Day Patch.td.3, 1 PATCH.72H TD Q3D, #10 PATCH.72H 0 Refills Prov:AGUSTIN MADDOX MD 11/11/17 Past Medical/Surgical History Patient has a past medical history of MS, migraines, left bundle-branch block, IBS, urinary urgency, ovarian cancer, frequent UTI, vertebral fracture Patient has surgical history of a mole removed, hysterectomy, bladder scope. Reviewed Nurses Notes: Yes Hx Smoking: No Smoking Status: Never Smoker Exposure to Second Hand Smoke?: No Hx Substance Use Disorder: No Hx Alcohol Use: Yes (1-2 drink per wk) Constitutional Vital Sign - Last 24 Hours 01/09/18 01/09/18 01/09/18 01/09/18 11:25 11:26 11:30 11:31 Pulse 84 78 Resp 20 B/P (MAP) 147/75 147/75 (99) 121/52 (75) Pulse Ox 94 98 01/09/18 01/09/18 01/09/18 01/09/18 11:46 12:00 12:01 12:16 Pulse 75 76 74 B/P (MAP) 110/57 (74) Pulse Ox 99 99 97 01/09/18 01/09/18 01/09/18 01/09/18 12:30 12:31 12:46 12:51 Pulse 74 80 81 B/P (MAP) 114/53 (73) Pulse Ox 100 98 97 01/09/18 01/09/18 01/09/18 01/09/18 13:06 13:21 13:30 13:36 Pulse ? 79 B/P (MAP) 136/59 (84) Pulse Ox 98 01/09/18 01/09/18 01/09/18 13:51 14:00 14:06 Pulse 76 78 B/P (MAP) 106/56 (73) Pulse Ox 97 95 Physical Exam General Appearance: The patient is alert, has no immediate need for airway protection and no current signs of toxicity. Respiratory: Chest is non tender, lungs are clear to auscultation. Cardiac: regular rate and rhythm Gastrointestinal: Abdomen is soft and non tender, no masses, bowel sounds are hypoactive. Musculoskeletal: Neck: Neck is supple and non tender. Extremities have full range of motion and are non tender. Skin: No rashes or lesions. DIFFERENTIAL DIAGNOSIS: After history and physical exam differential diagnosis was considered for constipation, flare of her IBS, colonic spasms. Medical Decision Making EKG/Imaging Imaging Technique: KUB SINGLE VIEW ABDOMEN HISTORY: No recent bowel movement Comparison studies: Chest and abdominal radiographs 12/22/2017 FINDINGS: Present is a right chest port with the tip overlying the SVC. No acute airspace consolidation. The cardiomediastinal silhouette is unchanged. The bowel gas pattern is nonobstructive. Mild to moderate stool volume is seen throughout the colon. Osseous structures are unchanged. IMPRESSION: 1. No acute intra-abdominal process. 2. Mild to moderate stool volume within the colon. Report Dictated By: Varghese Molina DO at 01/09/2018 12:16 PM Report E-Signed By: Varghese Molina DO at 01/09/2018 12:18 PM ED Course/Re-evaluation ED Course Patient was admitted to an exam room, history and physical were obtained. Differential diagnoses were considered. On examination lungs clear, heart regular, abdomen is soft and tender especially in the right side. Patient did have surgery recently. A KUB x-ray was done which showed mild to moderate amount of stool in colon. Patient was given an enema mostly because there is stool in the rectal vault. She was able to have a moderate-sized bowel movement. Patient states she did feel a ladder pressure. A repeat enema was done with no results. At that time a rectal exam was done which showed no stool in the distal colon. We will go ahead and discharge patient home at this time. I do want her to continue with her MiraLAX. She is to increase her fluid intake and increase her activity level. We'll also like her to increase her protein intake. Discusses the patient and her family and they verbalized understanding and agreement with plan. Decision to Disposition Date: Jan 09, 2018 Decision to Disposition Time: 15:17 Depart Departure Latest Vital Signs Vital Signs Date Time Temp Pulse Resp B/P (MAP) Pulse Ox O2 Delivery O2 Flow Rate FiO2 01/09/18 14:06 78 95 01/09/18 14:00 106/56 (73) 01/09/18 11:25 20 Impression: Primary Impression: Constipation Condition: Improved Disposition: HOME OR SELF-CARE Referrals: INA TABARES MD (PCP) Patient Instructions: Constipation (ED) Additional Instructions: Continue with the 1/2 capful of Miralax. Limit activity by how you are feeling, but I do encourage you to be up moving around as much as possible. Return to the ER if condition worsens. You may have the ascites drained by home health when you need it. Follow up with Dr. Swenson as scheduled. Increase protein in your diet. Increase fluid intake. Problem Qualifiers Primary Impression: Constipation Constipation type: other constipation type Qualified Codes: K59.09 - Other constipation BEAN LEAVITT Jan 09, 2018 11:27
--- NOTE | 2018-01-09 12:22 | RADIOLOGY IMAGING REPORT ---
FACILITY: [facility] PATIENT NAME: Kimberlee Tran : 1945 MR: [id number] V: [id number] EXAM DATE: ORDERING PHYSICIAN: BEAN LEAVITT TECHNOLOGIST: Location: [facility] [place] Patient: Kimberlee Tran : 1945 Visit/Account:[id number] Date of Sevice: 01/09/2018 Technique: KUB SINGLE VIEW ABDOMEN HISTORY: No recent bowel movement Comparison studies: Chest and abdominal radiographs 12/22/2017 FINDINGS: Present is a right chest port with the tip overlying the SVC. No acute airspace consolidati on. The cardiomediastinal silhouette is unchanged. The bowel gas pattern is nonobstructive. Mild to m oderate stool volume is seen throughout the colon. Osseous structures are unchanged. IMPRESSION: 1. No acute intra-abdominal process. 2. Mild to moderate stool volume within the colon. Report Dictated By: Varghese Molina DO at 01/09/2018 12:16 PM Report E-Signed By: Varghese Molina DO at 01/09/2018 12:18 PM WSN:[id number]
[2018-01-09 14:00] VITALS: BP 106/56
== END 2018-01-09 15:54 | disposition home or self-care (01) ==
LOC: ER 11:21
DX: K59.09 Other constipation (principal)
CPT/HCPCS: 74018; 99283

== ENCOUNTER 2018-01-11 15:35 | Emergency (ER) | payer MEDICARE, OTHER ==
[2016-10-27 08:04] VITALS: Wt 44.0 kg
--- NOTE | 2018-01-11 15:40 | ER Report ---
History and Physical Time Seen By MD: 15:40 HPI/ROS CHIEF COMPLAINT: WEAKNESS; decreased urination HISTORY OF PRESENT ILLNESS: PT here for evaluation of general weakness, decreased urination and not feeling well. Pt denies any fever. no chills. Pt has maligant ovarian cancer and is currently on an oral chemo medication. PT states she has been eating and drinking but still feels she may be dehydrated. no back pain. PT has had increased ascites and has had a drain placed in her abdomen for her home nurse care to drain her abdomen as needed twice a week. Pt is due to see the nurse tomorrow. Pt denies chest pain no sob. PT has noticed she has not been urinating as frequently. REVIEW OF SYSTEMS: Constitutional: No fever, no chills. Eyes: No discharge. ENT: No sore throat. Cardiovascular: No chest pain, no palpitations. Respiratory: No cough, no shortness of breath. Gastrointestinal: No abdominal pain, no vomiting. Genitourinary: No hematuria, + decreased urniation Musculoskeletal: No back pain. Skin: No rashes. Neurological: No headache, + generalized weakness Allergies: Coded Allergies: Penicillins (Verified Allergy, Severe, Angioedema and hives, 11/03/16) Sulfa (Sulfonamide Antibiotics) (Verified Allergy, Severe, facial swelling and hives, 11/03/16) nitrofurantoin (Verified Allergy, Severe, Angioedema and hives, 11/03/16) oxycodone (Verified Allergy, Intermediate, ITCHING and hives, 11/03/16) albumin human (Verified Allergy, Unknown, 11/11/17) dimethyl fumarate (Verified Allergy, Unknown, 11/11/17) glatiramer (copolymer 1) (Verified Allergy, Unknown, 11/11/17) interferon beta-1a (Verified Allergy, Unknown, 11/11/17) ondansetron (Verified Allergy, Unknown, Itching, 11/03/16) zolpidem (Verified Allergy, Unknown, 11/11/17) Home Meds Active Scripts Tramadol Hcl (TRAMADOL HCL) 50 Mg Tablet, 1-2 TAB PO Q4H PRN for PAIN, #30 TAB 0 Refills Prov:INA SWENSON MD 01/07/18 Promethazine Hcl (PROMETHAZINE HCL) 25 Mg Tablet, 25 MG PO Q8H PRN for NAUSEA/VOMITING, #20 TAB 0 Refills Prov:AGUSTIN MADDOX MD 11/11/17 Meclizine Hcl (MECLIZINE HCL) 25 Mg Tablet, 25 MG PO Q8H PRN for DIZZINESS, #20 TAB 0 Refills Prov:AGUSTIN MADDOX MD 11/11/17 Tetrahydrozoline Hcl (EYE DROPS) 15 Ml Drops, 15 ML OP 2-3XD for 90 Days, Prov:VIN BROWN MD 06/26/17 Reported Medications Furosemide (FUROSEMIDE) 20 Mg Tablet, 0.5 TAB PO QDAY, TAB 01/06/18 Sodium Selenite (SODIUM SELENITE) 1 Gm Powder, 1 GM MC QDAY 01/06/18 [Gcmaf] No Conflict Check, 60 MG PO QDAY 01/06/18 [[place]] No Conflict Check, PO QDAY 01/06/18 [artemisinin] No Conflict Check 11/30/17 Potassium Chloride (POTASSIUM CHLORIDE) 10 Meq Tab.er.prt, 10 MEQ PO QDAY for 30 Days, #30 0 Refills 11/11/17 Cholecalciferol (Vitamin D3) (VITAMIN D3) 1,000 Unit Tablet, 2500 UNIT PO QDAY, TAB 11/11/17 Lactobacillus Combination No.4 (PROBIOTIC) 1 Each Capsule, 1 EACH PO QDAY, CAPSULE 1 OUNCE LIQUID LACTOBACILLUS 07/02/16 [place]-3 Fatty Acids/Fish Oil (OMEGA 3 FISH OIL SOFTGEL) 1 Each Capsule.dr, 2 EACH PO QDAY 07/02/16 Multivitamin (MULTI-DAY VITAMINS) 1 Each Tablet, 1 EACH PO QDAY 07/02/16 Magnesium Oxide (MAGNESIUM) 250 Mg Tablet, 500 MG PO QDAY 07/02/16 Calcium Carb/Vit D3/Mag11/Zinc (OBTRSWF-DLA-QTUA-VIT D TABLET) 1 Each Tablet, 1 EACH PO QDAY 07/02/16 Aspirin (ASPIR 81) 81 Mg Tablet., 81 MG PO QDAY, TAB 07/02/16 Discontinued Reported Medications [Gcmal] No Conflict Check, 60 MG PO 01/06/18 [polyMva] No Conflict Check 11/30/17 [place]lor[place] Phosphate (CHLOROQUINE PHOSPHATE) 500 Mg Tablet, 500 MG PO QDAY 11/11/17 Estradiol (VAGIFEM) 10 Mcg Tablet, 10 MCG VG 2XW 11/11/17 Phenobarb/Hyoscy/Atropine/Scop ( TABLET) 16.2 Mg Tablet, 16.2 MG PO PRN 11/11/17 [Protandim] No Conflict Check, 1 TAB PEG QHS 10/16/17 Meloxicam (MELOXICAM) 15 Mg Tablet, 7.5 MG PO QDAY 10/16/17 Discontinued Scripts Scopolamine (Scopolamine) 1 Mg/3 Day Patch.td.3, 1 PATCH.72H TD Q3D, #10 PATCH.72H 0 Refills Prov:AGUSTIN MADDOX MD 11/11/17 Past Medical/Surgical History Pmhx: migraines, left bundle-branch block, IBS, urinary urgency, ovarian cancer, frequent UTI, vertebral fracture Pshx: mole removed, hysterectomy, bladder scope. Reviewed Nurses Notes: Yes Old Medical Records Reviewed: Yes Hx Smoking: No Smoking Status: Never Smoker Exposure to Second Hand Smoke?: No Hx Substance Use Disorder: No Hx Alcohol Use: No Constitutional Vital Sign - Last 24 Hours 01/11/18 15:42 Temp 98.0 Pulse 18 Resp 12 B/P (MAP) 128/51 Pulse Ox 100 O2 Delivery Room Air Physical Exam General Appearance: The patient is alert, thin, has no immediate need for airway protection and no signs of toxicity. Eyes: Pupils equal and round no pallor or injection, EOMI ENT: no pharyngeal erythema or exudates, Mucous membranes are moist Respiratory: There are no retractions, lungs are clear to auscultation. Cardiovascular: Regular rate and rhythm. pulses are equal and symmetrical Gastrointestinal: Abdomen is soft and non tender, no masses,increased bowel sounds, no guarding, no rigidity or rebound, + distended with ascites Neurological: Cranial nerves II-XII grossly intact, no sensory or motor loss Skin: Warm and dry, no rashes. Musculoskeletal: Neck is supple non tender, no vertebral tenderness Extremities are nontender, non swollen and have full range of motion. DIFFERENTIAL DIAGNOSIS: After history and physical exam differential diagnosis was considered for electrolyte abnl, dehydration, third spacing of fluids due to maligancy Medical Decision Making Data Points Result Diagram: 01/11/18 1600 01/11/18 1600 Laboratory Hematology Test 01/11/18 16:00 01/11/18 16:57 Red Blood Count 3.09 M/uL (4.17-5.56) Mean Corpuscular Volume 101.2 fL (80.0-96.0) Mean Corpuscular Hemoglobin 34.6 pg (26.0-33.0) Mean Corpuscular Hemoglobin Concent 34.2 g/dL (32.0-36.0) Red Cell Distribution Width 16.1 % (11.5-14.5) Mean Platelet Volume 6.9 fL (7.2-11.1) Neutrophils (%) (Auto) 76.8 % (39.4-72.5) Lymphocytes (%) (Auto) 9.6 % (17.6-49.6) Monocytes (%) (Auto) 13.0 % (4.1-12.4) Eosinophils (%) (Auto) 0.3 % (0.4-6.7) Basophils (%) (Auto) 0.3 % (0.3-1.4) Nucleated RBC Relative Count (auto) 0.0 /100WBC Neutrophils # (Auto) 5.6 K/uL (2.0-7.4) Lymphocytes # (Auto) 0.7 K/uL (1.3-3.6) Monocytes # (Auto) 0.9 K/uL (0.3-1.0) Eosinophils # (Auto) 0.0 K/uL (0.0-0.5) Basophils # (Auto) 0.0 K/uL (0.0-0.1) Nucleated RBC Absolute Count (auto) 0.00 K/uL Peripheral Blood Smear Y/N Sodium Level 124 mmol/L (137-145) Potassium Level 4.5 mmol/L (3.5-5.0) Chloride Level 98 mmol/L (98-107) Carbon Dioxide Level 23 mmol/L (22-31) Blood Urea Nitrogen 20 mg/dl (7-18) Creatinine 0.60 mg/dl (0.52-1.04) Glomerular Filtration Rate Calc > 60.0 Random Glucose 119 mg/dl (75-110) Calcium Level 7.3 mg/dl (8.4-10.2) Magnesium Level 1.8 mg/dl (1.7-2.2) Total Bilirubin < 0.1 mg/dl (0.2-1.3) Aspartate Amino Transf (AST/SGOT) 22 U/L (0-35) Alanine Aminotransferase (ALT/SGPT) 29 U/L (0-56) Alkaline Phosphatase 148 U/L (0-126) Total Protein 4.7 g/dl (6.3-8.2) Albumin 2.3 g/dl (3.5-5.0) Urine Color Yellow Urine Clarity Clear Urine pH 6.0 pH (4.8-9.5) Urine Specific [place] 1.016 Urine Protein Negative mg/dL (NEGATIVE) Urine Glucose (UA) Negative mg/dL (NEGATIVE) Urine Ketones Negative mg/dL (NEGATIVE) Urine Blood Negative (NEGATIVE) Urine Nitrite Negative (NEGATIVE) Urine Bilirubin Negative (NEGATIVE) Urine Urobilinogen Negative mg/dL (0.2-1.9) Urine Leukocyte Esterase Negative (NEGATIVE) Urine RBC 1 /HPF (0-2/HPF) Urine WBC 1 /HPF (0-5/HPF) Urine Squamous Epithelial Cells Few /LPF (</=FEW) Urine Bacteria Few /HPF (NONE-FEW) Urine Mucus Few /HPF (NONE-FEW) Chemistry Test 01/11/18 16:00 01/11/18 16:57 White Blood Count 7.3 k/uL (4.5-11.0) Red Blood Count 3.09 M/uL (4.17-5.56) Hemoglobin 10.7 g/dL (12.0-16.0) Hematocrit 31.3 % (34.0-47.0) Mean Corpuscular Volume 101.2 fL (80.0-96.0) Mean Corpuscular Hemoglobin 34.6 pg (26.0-33.0) Mean Corpuscular Hemoglobin Concent 34.2 g/dL (32.0-36.0) Red Cell Distribution Width 16.1 % (11.5-14.5) Platelet Count 167 K/uL (150-450) Mean Platelet Volume 6.9 fL (7.2-11.1) Neutrophils (%) (Auto) 76.8 % (39.4-72.5) Lymphocytes (%) (Auto) 9.6 % (17.6-49.6) Monocytes (%) (Auto) 13.0 % (4.1-12.4) Eosinophils (%) (Auto) 0.3 % (0.4-6.7) Basophils (%) (Auto) 0.3 % (0.3-1.4) Nucleated RBC Relative Count (auto) 0.0 /100WBC Neutrophils # (Auto) 5.6 K/uL (2.0-7.4) Lymphocytes # (Auto) 0.7 K/uL (1.3-3.6) Monocytes # (Auto) 0.9 K/uL (0.3-1.0) Eosinophils # (Auto) 0.0 K/uL (0.0-0.5) Basophils # (Auto) 0.0 K/uL (0.0-0.1) Nucleated RBC Absolute Count (auto) 0.00 K/uL Peripheral Blood Smear Y/N Glomerular Filtration Rate Calc > 60.0 Calcium Level 7.3 mg/dl (8.4-10.2) Magnesium Level 1.8 mg/dl (1.7-2.2) Total Bilirubin < 0.1 mg/dl (0.2-1.3) Aspartate Amino Transf (AST/SGOT) 22 U/L (0-35) Alanine Aminotransferase (ALT/SGPT) 29 U/L (0-56) Alkaline Phosphatase 148 U/L (0-126) Total Protein 4.7 g/dl (6.3-8.2) Albumin 2.3 g/dl (3.5-5.0) Urine Color Yellow Urine Clarity Clear Urine pH 6.0 pH (4.8-9.5) Urine Specific [place] 1.016 Urine Protein Negative mg/dL (NEGATIVE) Urine Glucose (UA) Negative mg/dL (NEGATIVE) Urine Ketones Negative mg/dL (NEGATIVE) Urine Blood Negative (NEGATIVE) Urine Nitrite Negative (NEGATIVE) Urine Bilirubin Negative (NEGATIVE) Urine Urobilinogen Negative mg/dL (0.2-1.9) Urine Leukocyte Esterase Negative (NEGATIVE) Urine RBC 1 /HPF (0-2/HPF) Urine WBC 1 /HPF (0-5/HPF) Urine Squamous Epithelial Cells Few /LPF (</=FEW) Urine Bacteria Few /HPF (NONE-FEW) Urine Mucus Few /HPF (NONE-FEW) Urinalysis Test 01/11/18 16:57 Urine Color Yellow Urine Clarity Clear Urine pH 6.0 pH (4.8-9.5) Urine Specific [place] 1.016 Urine Protein Negative mg/dL (NEGATIVE) Urine Glucose (UA) Negative mg/dL (NEGATIVE) Urine Ketones Negative mg/dL (NEGATIVE) Urine Blood Negative (NEGATIVE) Urine Nitrite Negative (NEGATIVE) Urine Bilirubin Negative (NEGATIVE) Urine Urobilinogen Negative mg/dL (0.2-1.9) Urine Leukocyte Esterase Negative (NEGATIVE) Urine RBC 1 /HPF (0-2/HPF) Urine WBC 1 /HPF (0-5/HPF) Urine Squamous Epithelial Cells Few /LPF (</=FEW) Urine Bacteria Few /HPF (NONE-FEW) Urine Mucus Few /HPF (NONE-FEW) ED Course/Re-evaluation Clinical Indication for ER IV: Hydration, IV Access ED Course Access her port. Will check labs. 01/11/2018 6:12:56 pm Pts labs show a steady decrease in her sodium which was normal in November but trending down since December when she started having paracentesis procedures done. Pt had a paracentesis approx once a week since december. Pt is scheduled to have it done tomorrow. I suspect that is why pt feels week. Pt does not want to be admitted. Pt has a home nurse visit tomorrow. Pt is concerned with leg swelling. Pt is third spacing. Offered albumin but it is on pts allergy list. Pt and her state that is an error and she is not allergic. THey are requesting a dose to see if that may help with third spacing. Ultimately pts cancer is causing her symptoms. Pt still wants to continue current therapy at this time. Will give albumin in the ED. If no reaction will have pt go home as per preference with home nurse dilshad tomorrow. She will need her sodium rechecked this week. If it continues to drop she will require admission and possible 3% saline as inpt. Decision to Disposition Date: Jan 11, 2018 Decision to Disposition Time: 18:16 Depart Departure Latest Vital Signs Vital Signs Date Time Temp Pulse Resp B/P (MAP) Pulse Ox O2 Delivery O2 Flow Rate FiO2 01/11/18 15:42 98.0 18 12 128/51 100 Room Air Impression: Primary Impression: Hyponatremia with excess extracellular fluid volume Additional Impressions: Ascites Weakness Ovarian cancer Condition: Condition Unchanged Disposition: HOME OR SELF-CARE Referrals: INA TABARES MD (PCP) 5 Days You need to have your electrolytes rechecked this week. Patient Instructions: Ascites (ED), Hyponatremia (ED) Additional Instructions: Your sodium is low. Your sodium has been lowering ever since they started draining fluid in your abdomen. This needs to be followed closely. I am sending you home with a script to have your sodium rechecked this week. Follow up with your family doctor. If you sodium continues to drop you will require admission to hospital. Problem Qualifiers Additional Impressions: Ascites Ascites type: malignant Qualified Codes: R18.0 - Malignant ascites Ovarian cancer Laterality: unspecified laterality Qualified Codes: C56.9 - Malignant neoplasm of unspecified ovary NURIA LAKHANI DO Jan 11, 2018 15:40
[2018-01-11] MEDS ORDERED: NS(*) 0.9% 500 ML BAG 500 ML IV ONE (15:50)
[2018-01-11 16:12] LABS: PLATELET COUNT, AUTOMATED 167 K/uL (150-450)
[2018-01-11] MEDS ORDERED: ALBUMIN HUMAN 25% 50 ML VIAL 50 ML IV ONE (17:40)
[2018-01-11 19:00] VITALS: BP 118/49
[2018-01-11] MEDS ORDERED: HEPARIN FLSH (PORT) 500 UN/5ML IVP ONE (19:15)
== END 2018-01-11 19:47 | disposition home or self-care (01) ==
LOC: ER 16:10
DX: E87.1 Hypo-osmolality and hyponatremia (principal); R18.8 Other ascites; R53.1 Weakness; C56.9 Malignant neoplasm of unspecified ovary
CPT/HCPCS: 81001; 83735; 85025; 96361; 96365; 99284; J1642; J7040; P9047; 82040; 82247; 82310; 82374; 82435; 82565; 82947; 84075; 84132; 84155; 84295; 84450; 84460; 84520; A4353

== ENCOUNTER → 2018-01-14 | Outpatient (CLI) | payer MEDICARE, OTHER ==
[2016-10-27 08:04] VITALS: BMI 20.1
== END ==
LOC: LAB 14:07
PROVIDERS: ATTEND Emergency Medicine
DX: E87.1 Hypo-osmolality and hyponatremia (principal); R53.1 Weakness
CPT/HCPCS: 36415; 82310; 82374; 82435; 82565; 82947; 84132; 84295; 84520

== ENCOUNTER → 2018-01-20 | Outpatient (CLI) | payer MEDICARE, OTHER ==
[2016-10-27 08:04] VITALS: BMI 20.1
[2018-01-20 10:27] LABS: PLATELET COUNT, AUTOMATED 151 K/uL (150-450)
== END ==
LOC: LAB 10:11
PROVIDERS: ATTEND Homeopath
DX: C56.9 Malignant neoplasm of unspecified ovary (principal)
CPT/HCPCS: 36415; 82040; 82247; 82310; 82374; 82435; 82565; 82947; 83615; 84075; 84132; 84155; 84295; 84450; 84460; 84520; 85025; 85651

== ENCOUNTER → 2018-01-20 | Outpatient (CLI) | payer MEDICARE, OTHER ==
[2016-10-27 08:04] VITALS: BMI 20.1
== END ==
LOC: LAB 10:08
PROVIDERS: ATTEND Family Medicine
DX: E87.1 Hypo-osmolality and hyponatremia (principal)

== ENCOUNTER → 2018-01-25 | Outpatient (CLI) | payer MEDICARE, OTHER ==
[2016-10-27 08:04] VITALS: BMI 20.1
--- NOTE | 2018-01-25 14:30 | RADIOLOGY IMAGING REPORT ---
FACILITY: [facility] PATIENT NAME: Kimberlee Tran : 1945 MR: [id number] V: [id number] EXAM DATE: ORDERING PHYSICIAN: INA TABARES TECHNOLOGIST: Location: [facility] Patient: Kimberlee Tran : 1945 Visit/Account:[id number] Date of Sevice: 01/25/2018 CHEST PA AND LAT INDICATION: Shortness of breath COMPARISON: 11/30/2017 FINDINGS: Heart size within normal limits. Compared to prior study, bilateral pleural effusions moderate in size. Upper lungs are clear. IMPRESSION: 1. Interval development of moderate bilateral pleural effusions Report Dictated By: Andrea Mirza at 01/25/2018 2:25 PM Report E-Signed By: Andrea Mirza at 01/25/2018 2:26 PM WSN:[id number]
== END ==
LOC: RAD 13:37
PROVIDERS: ATTEND Family Medicine
DX: R06.00 Dyspnea, unspecified (principal)
CPT/HCPCS: 71046

== ENCOUNTER → 2018-02-02 | Outpatient (REF) | payer MEDICARE, OTHER ==
[2016-10-27 08:04] VITALS: BMI 20.1
== END ==
LOC: ZZSENDIN 15:04
PROVIDERS: ATTEND Family Medicine
DX: C56.9 Malignant neoplasm of unspecified ovary (principal); R82.79 Other abnormal findings on microbiological examination of urine
CPT/HCPCS: 81001; 82310; 82374; 82435; 82565; 82947; 84132; 84295; 84520; 87088

== ENCOUNTER 2018-02-03 10:30 | Outpatient (RCR) | payer MEDICARE, OTHER ==
[2016-10-27 08:04] VITALS: Ht 162.6 cm; Wt 50.8 kg
[2017-11-11 12:34] VITALS: BP 102/53
[2017-11-11 14:10] LABS: PLATELET COUNT, AUTOMATED 233 K/uL (150-450)
--- NOTE | 2017-11-11 17:56 | RADIOLOGY IMAGING REPORT ---
FACILITY: [facility] - [place] PATIENT NAME: Kimberlee Tran : 1945 MR: [id number] V: [id number] EXAM DATE: ORDERING PHYSICIAN: HILARY PEACOCK TECHNOLOGIST: Location: [facility] [place] Patient: Kimberlee Tran : 1945 Visit/Account:[id number] Date of Sevice: 11/11/2017 EXAMINATION: MR Brain without and with IV contrast HISTORY: Ovarian cancer. Concern for metastatic disease. Vertigo. History of MS. COMPARISON: 09/23/2017. TECHNIQUE: Multi-planar, multi-sequence brain MRI was performed before and after IV gadolinium. CONTRAST: 11 mL IV MultiHance FINDINGS: Brain volume: Normal for patient age. Sagittal midline structures: Normal. Ventricles: Normal. Acute ischemic changes: None. Hemorrhage: None. Masses / edema: None. Enhancement: Normal. Herrera-white: Negative. White matter lesions: Stable scattered foci of T2/FLAIR hyperintensity in the deep white matter bila terally including the periventricular white matter. There are no new white matter lesions. No associa rodrigue diffusion restriction or enhancement. Vessels: Stable small developmental venous anomaly in the right parietal lobe. Extra-axial: None. Calvarium / scalp: Negative. Skull base: Negative. Visualized sinuses / orbits: Negative. Visualized upper neck: Negative. IMPRESSION: 1. No MR evidence of metastatic disease or acute intracranial pathology. 2. Stable white matter changes compatible with known MS. Report Dictated By: Kota Rogers MD at 11/11/2017 5:46 PM Report E-Signed By: Kota Rogers MD at 11/11/2017 5:53 PM [id number]
--- NOTE | 2017-11-11 20:06 | ONCOLOGY FOLLOW UP NOTE ---
EVENT DATE: November 11, 2017 REASON FOR FOLLOWUP 1. High-grade serous ovarian carcinoma, initially stage IIC. 2. Avoidance of standard adjuvant therapy with carboplatin and paclitaxel due to concern for toxicity and patient's history of multiple sclerosis. 3. Status post treatment with reduced dose chemotherapy, ketogenic diet, and insulin in [place], [place]. 4. Recent concerning symptoms and imaging consistent with recurrence. INTERIM HISTORY Kimberlee returns to clinic for a followup visit today. She is accompanied by her family. She reports that she is not feeling particularly well today. She has been dealing with abdominal bloating and pressure. She has also had issues with vertigo. She relates her most recent history to me today. After our last visit here in [place], she had pursued treatment at a clinic in [place], [place]. There, she received a multiagent, reduced dose chemotherapy regimen (10% of standard dosing for all agents), as well as keeping on a strict ketogenic diet and receiving insulin on occasion for when her blood sugar was too high. She reports that she had been hospitalized while in [place], and upon returning to [place], she was hospitalized again and recently discharged. She has undergone followup imaging, including recent CT/PET scan. She has also had blood drawn. She visited with Dr. Gonzales in the [facility] recently as well. The patient currently has no interest whatsoever in receiving chemotherapy due to ongoing concerns for toxicity, especially with standard dosing. She also relates that she notes that this morning when she woke up, her pupils were not the same size. Her left pupil was much larger. ONCOLOGY HISTORY 1. July 11, 2016: Laparoscopic bilateral salpingo-oophorectomy and peritoneal biopsies. Pathology: Endometrial curettings show evidence of superficial portions of endometrium with crowded glands, favoring simple hyperplasia without atypia. 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 The fallopian tube was negative for carcinoma. The right ovary also contained serous carcinoma, high grade, and evidence of endosalpingiosis. The fallopian tube was negative for carcinoma. Estrogen receptor positivity of the tumor was noted to be 60% to 70% positive. Cytology of pelvic washing was negative for malignancy. 2. July 29, 2016: Patient undergoes robotic laparoscopic total hysterectomy with bilateral ovarian vessel remnant excisions, bilateral pelvic lymph node dissection, radial ovarian carcinoma debulking of the lower pelvic tumor with the aid of argon beam database reporting consultant, pelvic dissection of ureters, bilateral retroperitoneal dissection, resection of bladder dome tumor with repair of cystectomy area, partial omentectomy with numerous staging biopsies of the upper abdomen, diagnostic laparoscopy with lysis of adhesions, and exam under anesthesia. Pathology revealed negative biopsies of right pelvic side wall, right upper abdomen, left upper abdomen, left pelvic side wall, and diaphragm. Sigmoid colon serosa, bladder serosa, and right ovarian vessels were positive for high-grade serous carcinoma. High-grade serous carcinoma was also found involving the uterine serosa. Ectocervix and endocervix were unremarkable. The endometrium showed no evidence of malignancy, and omentum was negative as well. One benign right pelvic lymph node and one benign left pelvic lymph node were noted. 3. Status post treatment with chemotherapy with a multidrug, dose reduced regimen in [place], [place], as well as ketogenic diet, and insulin. 4. CT scan of the abdomen and pelvis with contrast performed on October 19, 2017, reveals multiple pleural-based masses along the diaphragmatic surface and right lower thorax, ranging in size from 3 mm to 9 mm, new when compared to prior. Conglomerate of heterogeneous masses which appears to be extracapsular along the dome of the liver, also new. Numerous peritoneal implants throughout the abdomen and pelvis, most prominent low in the pelvis along the left-sided abdomen where there is matting of numerous loops of large and small bowel. Mild left hydronephrosis with mild prominence of the left ureter, likely related to peritoneal implants. Multiple soft tissue nodules along the anterior right abdominal wall, new. Large gallstone and enhancement of the gallbladder wall similar to the prior study. 5. November 02, 2017, CT/PET scan: Large, loculated, hypermetabolic soft tissue mass in the pelvis with extensive peritoneal and mesenteric-based metastatic disease in the abdomen/pelvis. There is potential involvement of the right lateral pelvic wall. No evidence of metastatic disease in the brain, head/neck, or chest. There is moderate left-sided hydronephrosis with level of obstruction in the mid pelvis. Gallstone noted as previously. PAST MEDICAL HISTORY 1. Ovarian cancer, as above. 2. Multiple sclerosis, not currently on therapy. 3. Reported left bundle branch block. ALLERGIES MACROBID (facial swelling), PENICILLIN (hives/rash), SULFA (hives/rash). SOCIAL HISTORY The patient only occasionally drinks alcohol. She is a nonsmoker. There is no history of illicit drug use. CURRENT MEDICATIONS 1. Promethazine. 2. Meclizine. 3. Scopolamine. 4. Tetrahydrozoline eye drops. 5. Chloroquine. 6. Estradiol/Vagifem. 7. tablet. 8. Vitamin D3. 9. Protandim. 10. Meloxicam p.r.n. 11. Probiotic. 12. Montgomery-3 fish oil. 13. Multivitamin. 14. Magnesium. 15. Calcium/magnesium/zinc/vitamin D tablet. 16. Baby aspirin. VITAL SIGNS Temperature is 97.2, blood pressure 102/53, pulse is 72, respirations 16, oxygen saturation is 93% on room air. Weight is 50.1 kg. PHYSICAL EXAMINATION GENERAL: Patient is alert and oriented times three, in no apparent distress, sitting in the exam room chair. She is thin and appears somewhat frail. She is interactive and pleasant. HEENT: Anisocoria with left pupil larger than right. NEUROLOGIC: Cursory neurologic exam while sitting is nonfocal. SKIN: No concerning rash or lesion. Rest of physical exam is deferred for extensive discussion. LABORATORY STUDIES Reviewed per the [facility] record. IMAGING Please see Oncology History. ASSESSMENT AND PLAN 1. Recurrent high-grade serous ovarian carcinoma. I had a lengthy and in-depth discussion with Kimberlee and her family members today. We spent time discussing her initial presentation with stage II ovarian cancer which had been surgically removed/debulked. There had been initial plans for her to receive adjuvant carboplatin and paclitaxel, which was deferred. She had subsequently gone to [place], [place], to receive a very dose reduced chemotherapy regimen as well as ketogenic diet and insulin. As discussed today, I do not have any of the notes from these clinics, and I would greatly appreciate the ability to review them for completeness sake. We moved on to discuss her recent symptoms as well as findings of her CT scan and subsequent CT/PET scan. The patient is well aware that there is definite concern for recurrence of her ovarian cancer. Her imaging is certainly indicative, and her CA-125 is quite elevated. We moved on and spent a great deal of time discussing her options for treatment. I have admitted to the patient and her family members today that her options do seem to be quite limited at this point. Chemotherapy will, unfortunately, not be an option, and I do not see a role for any definitive radiation therapy. We could consider this for palliation in the future, however. I have recommended that we send this tumor for additional studies. I have asked for the tissue to be obtained to send [facility] testing as well as assess for any evidence of microsatellite instability. We discussed the pertinence of this testing and the possibility that there could be an actionable mutation or microsatellite instability of using immunotherapy. I am concerned about her history of multiple sclerosis, however, and the use of immunotherapy. We also discussed that there is a distinct possibility that we will not find any potentially actionable mutations, and at that point, we would need to consider moving forward with symptom management and palliative care with eventual transition to hospice. The patient was not at all surprised to hear those, and she and her family members understand. 2. Also, on her scan, she is noted to have left hydronephrosis. This appears to be due to narrowing of the ureter in the pelvis. This is almost undoubtedly due to progressing peritoneal disease. As discussed, I would like to review her situation with Dr. Espinal at [facility] in [place], who had performed initial surgery. With her current condition, I am not particular sure she would be able to tolerate another debulking surgery, but we do need to ask this question. I will plan to see her back as soon as possible after more information is known. I am uncertain at this point whether ureteral stenting would be possible, but this will be reviewed with Dr. Espinal and/or Urology in a timely manner. 3. 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 We discussed that she did have an MRI that showed no new findings in September. I do think it will be important for her to have an MRI of the brain stat today given these exam findings. She has been having issues with vertigo as well. As discussed, I would not necessarily expect an ovarian cancer to metastasize to the brain, but given her history of multiple sclerosis, MRI imaging is the wisest maneuver. We will be back in touch with her with the results of the MRI as well. The patient and her family members had multiple questions for me today. I believe I answered all their questions to their satisfaction. I spent a total of 30 minutes of time [id number] with them today, and 25 minutes of this were spent in direct counseling and coordination of care. ESTHER
[2017-11-30 15:42] VITALS: BP 107/48
--- NOTE | 2017-11-30 17:16 | Oncology Progress Note ---
History of Present Illness Evaluation Evaluation Date: Nov 30, 2017 Evaluation Time: 16:00 Accompanied by Accompanied by: Last seen by : s/p Hospitalization Intractable N/V/dizziness on 11/11/2017 Chief Complaint Chief Complaint Constipation x 2 weeks plus abdominal distention/pain level 8 (0-10 scale) Oncology History Oncology History 1. July 11, 2016: Laparoscopic bilateral salpingo-oophorectomy and peritoneal biopsies. Pathology: Endometrial curettings show evidence of superficial portions of endometrium with crowded glands, favoring simple hyperplasia without atypia. 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 The fallopian tube was negative for carcinoma. The right ovary also contained serous carcinoma, high grade, and evidence of endosalpingiosis. The fallopian tube was negative for carcinoma. Estrogen receptor positivity of the tumor was noted to be 60% to 70% positive. Cytology of pelvic washing was negative for malignancy. 2. July 29, 2016: Patient undergoes robotic laparoscopic total hysterectomy with bilateral ovarian vessel remnant excisions, bilateral pelvic lymph node dissection, radial ovarian carcinoma debulking of the lower pelvic tumor with the aid of argon beam printing assistant, pelvic dissection of ureters, bilateral retroperitoneal dissection, resection of bladder dome tumor with repair of cystectomy area, partial omentectomy with numerous staging biopsies of the upper abdomen, diagnostic laparoscopy with lysis of adhesions, and exam under anesthesia. Pathology revealed negative biopsies of right pelvic side wall, right upper abdomen, left upper abdomen, left pelvic side wall, and diaphragm. Sigmoid colon serosa, bladder serosa, and right ovarian vessels were positive for high-grade serous carcinoma. High-grade serous carcinoma was also found involving the uterine serosa. Ectocervix and endocervix were unremarkable. The endometrium showed no evidence of malignancy, and omentum was negative as well. One benign right pelvic lymph node and one benign left pelvic lymph node were noted. 3. Status post treatment with chemotherapy with a multidrug, dose reduced regimen in [place], [place], as well as ketogenic diet, and insulin. 4. CT scan of the abdomen and pelvis with contrast performed on October 19, 2017, reveals multiple pleural-based masses along the diaphragmatic surface and right lower thorax, ranging in size from 3 mm to 9 mm, new when compared to prior. Conglomerate of heterogeneous masses which appears to be extracapsular a long the dome of the liver, also new. Numerous peritoneal implants throughout the abdomen and pelvis, most prominent low in the pelvis along the left-sided abdomen where there is matting of numerous loops of large and small bowel. Mild left hydronephrosis with mild prominence of the left ureter, likely related to peritoneal implants. Multiple soft tissue nodules along the anterior right abdominal wall, new. Large gallstone and enhancement of the gallbladder wall similar to the prior study. 5. November 02, 2017, CT/PET scan: Large, loculated, hypermetabolic soft tissue mass in the pelvis with extensive peritoneal and mesenteric-based metastatic disease in the abdomen/pelvis. There is potential involvement of the right lateral pelvic wall. No evidence of metastatic disease in the brain, head/neck, or chest. There is moderate left-sided hydronephrosis with level of obstruction in the mid pelvis. Gallstone noted as previously. Treatment Treatment Anticipating bowel regimen for constipation HPI HPI Mrs. Marc Mohan is a very pleasant 72 year old female who has Recurrent high- grade serous ovarian carcinoma. s/p Hospitalization for GI upset intractable N/V and dizziness on 11/11/17 treated with Meclizine 25mg, 1/2 to 1 tablet every 8 hours as needed for dizziness;Scopolamine patch every 3 days; Phenergan 25mg here at [facility]. on November 02, 2017, CT/PET scan: revealed Large, loculated, hyper metabolic soft tissue mass in the pelvis with extensive peritoneal and mesenteric-based metastatic disease in the abdomen/pelvis. Patient is seen at the cancer today complaining of Constipation x 2 weeks plus abdominal distention, pain level 8 (0-10 scale). Patient is AAOX4, hemodynamically stable, but ill looking. On exam abdominal distended to the level of the diaphragm, tender to touch. She had her last BM on 11/25/17, she informs me she has been having bowel pattern changes for the last month or so. She reports increased weakness, fatigue, and pain with SOB especially when bending over, as her ab domen has been gradually increasing over the last 2-4 weeks. She reports nausea, vomiting, chills, belching, and symptoms of early satiety along with dry mouth, poor oral intake. She was given a bowel regimen by Dr. Urena, however, patient has been substituting the regimen with alternative remedies, such as yogurt, coconut oil, prunes. She did take 2 Senokot today. patient Denies any fevers at home, cardiac type chest pain, no headaches, no bleeding, bruising,or night sweats. Of note patient did embark on a "Keto diet" in 2017 prior to diagnosis of metastasis of disease. My impression is that this keto-diet lifestyle modification is hindering to a certain degree with the ability for patient to follow pharmacological regimen as instructed. based on findings, I will refer patient to the ER for abdominal series imaging,for possible bowel obstruction, prior to attempting to treat constipation. Significant PMHx of Ovarian cancer; Multiple sclerosis, not currently on therapy; left hydronephrosis ; Anisocoria; Reported left bundle branch block. CURRENT MEDICATIONS 1. Promethazine. 2. Meclizine. 3. Scopolamine. 4. Tetrahydrozoline eye drops. 5. Chloroquine. 6. Estradiol/Vagifem. 7. tablet. 8. Vitamin D3. 9. Protandim. 10. Meloxicam p.r.n. 11. Probiotic. 12. [place]-3 fish oil. 13. Multivitamin. 14. Magnesium. 15. Calcium/magnesium/zinc/vitamin D tablet. 16. Baby aspirin. PMH Patient History: Esophageal reflux MOTHER FH: [place] (myocardial infarction) FATHER FH: cancer Siblings x 1 FH: diabetes mellitus Siblings x 1 FH: respiratory disease MOTHER Social/Occupational History Social History: Social History This is a 72 Yr old White female, she is M and has [] Children Hx Smoking: No Smoking Status: Never Smoker Exposure to Second Hand Smoke?: No Allergies & Medications Allergies: Coded Allergies: Penicillins (Verified Allergy, Severe, Angioedema and hives, 11/03/16) Sulfa (Sulfonamide Antibiotics) (Verified Allergy, Severe, facial swelling and hives, 11/03/16) nitrofurantoin (Verified Allergy, Severe, Angioedema and hives, 11/03/16) oxycodone (Verified Allergy, Intermediate, ITCHING and hives, 11/03/16) albumin human (Verified Allergy, Unknown, 11/11/17) dimethyl fumarate (Verified Allergy, Unknown, 11/11/17) glatiramer (copolymer 1) (Verified Allergy, Unknown, 11/11/17) interferon beta-1a (Verified Allergy, Unknown, 11/11/17) ondansetron (Verified Allergy, Unknown, Itching, 11/03/16) zolpidem (Verified Allergy, Unknown, 11/11/17) Home Meds Active Scripts Promethazine Hcl (PROMETHAZINE HCL) 25 Mg Tablet, 25 MG PO Q8H PRN for NAUSEA/VOMITING, #20 TAB 0 Refills Prov:AGUSTIN MADDOX MD 11/11/17 Meclizine Hcl (MECLIZINE HCL) 25 Mg Tablet, 25 MG PO Q8H PRN for DIZZINESS, #20 TAB 0 Refills Prov:AGUSTIN MADDOX MD 11/11/17 Scopolamine (Scopolamine) 1 Mg/3 Day Patch.td.3, 1 PATCH.72H TD Q3D, #10 PA TCH.72H 0 Refills Prov:AGUSTIN MADDOX MD 11/11/17 Tetrahydrozoline Hcl (EYE DROPS) 15 Ml Drops, 15 ML OP 2-3XD for 90 Days, Prov:VIN BROWN MD 06/26/17 Reported Medications [polyMva] No Conflict Check 11/30/17 [artemisinin] No Conflict Check 11/30/17 Potassium Chloride (POTASSIUM CHLORIDE) 10 Meq Tab.er.prt, 10 MEQ PO QDAY for 30 Days, #30 0 Refills 11/11/17 Chloroquine Phosphate (CHLOROQUINE PHOSPHATE) 500 Mg Tablet, 500 MG PO QDAY 11/11/17 Estradiol (VAGIFEM) 10 Mcg Tablet, 10 MCG VG 2XW 11/11/17 Phenobarb/Hyoscy/Atropine/Scop ( TABLET) 16.2 Mg Tablet, 16.2 MG PO PRN 11/11/17 Cholecalciferol (Vitamin D3) (VITAMIN D3) 1,000 Unit Tablet, 2500 UNIT PO QDAY, TAB 11/11/17 [Protandim] No Conflict Check, 1 TAB PEG QHS 10/16/17 Meloxicam (MELOXICAM) 15 Mg Tablet, 7.5 MG PO QDAY 10/16/17 Lactobacillus Combination No.4 (PROBIOTIC) 1 Each Capsule, 1 EACH PO QDAY, CAPSULE 1 OUNCE LIQUID LACTOBACILLUS 07/02/16 [place]-3 Fatty Acids/Fish Oil (OMEGA 3 FISH OIL SOFTGEL) 1 Each Capsule.dr, 2 EACH PO QDAY 07/02/16 Multivitamin (MULTI-DAY VITAMINS) 1 Each Tablet, 1 EACH PO QDAY 07/02/16 Magnesium Oxide (MAGNESIUM) 250 Mg Tablet, 500 MG PO QDAY 07/02/16 Calcium Carb/Vit D3/Mag11/Zinc (MQKIESZ-NVM-VHVE-VIT D TABLET) 1 Each Tablet, 1 EACH PO QDAY 07/02/16 Aspirin (ASPIR 81) 81 Mg Tablet.dr, 81 MG PO QDAY, TAB 07/02/16 Review of Systems Constitution: Positive for Appetite/Weight Change, Positive for F ever/Chills/Sweating; Denies Recent Infection, Denies Other HEENT: OTHER (Dry mouth) Respiratory: Shortness of Breath (while bending over) Cardiovascular: No Chest Pain, No Orthopnea, No Edema, No Palpitations, No OTHER Gastrointestinal: Nausea, Vomitting, Constipation, Abdominal Pain Gentiourinary: No Hematuria, No Dysuria, No Nocturia, No Other Musculoskeletal: No Muscle Pain, No Joint Pain, No Bone Pain, No Other Hematological: Weakness, Fatigue Skin: No Skin Rash, No Lumps, No Erythema, No Dry Skin, No Moist Skin, No Other Psychiatric: Anxiety; No Depression, No Other Vital Signs Vital Signs Temperature: 97.3 Pulse: 71 BP Systolic: 107 BP Diastolic: 48 Respiratory Rate: 16 O2 SAT: 96 O2 Delivery: Height (feet) Height (inches) 64.00 Weight lb: 110 Weight oz: Weight Kg (Edward): Pain: 8 Physical Exam General: Looks Stable HEENT: HEAD:Atraumatic Abdomen: Other (Grssoly distended,tender to touch) Psychiatric: Mood appears normal, Affect appears normal Skin: No Skin Rashes, No Bruising, No Purpura, No Moist Desquamation, No Dry Desquamation, No Errythema, No Mild Errythema, No Moderate Errythema, No Severe Errythema, No Induration, No Other Breast: No No Masses, No No Nipple Discharge, No No Skin Changes, No Other Assessment and Plan Assessment and Plan Mrs. Marc Mohan is a very pleasant 72 year old female who has Recurrent high- grade serous ovarian carcinoma. s/p Hospitalization for GI upset N/V on 11/11/17 here at [facility]. November 02, 2017, CT/PET scan: revealed Large, loculated, hypermetabolic soft tissue mass in the pelvis with extensive peritoneal and mesenteric-based metastatic disease in the abdomen/pelvis. Patient is seen at the cancer today complaining of Constipation x 2 weeks plus abdominal distention, pain level 8 (0-10 scale). Patient is AAOX4, hemodynamically stable, but ill looking. On exam abdominal distended to the level of the diaphragm, tender to touch. She had her last BM on 11/25/17, she informs me she has been having bowel pattern changes for the last month or so. She reports increased weakness, fatigue, and pain with SOB especially when bending over, as her abdomen has been gradually increasing over the last 2-4 weeks. She reports nausea, vomiting, chills, belching, and symptoms of early satiety along with dry mouth, poor oral intake. She was given a bowel regimen by Dr. Urena, however, patient has been substituting the regimen with alternative remedies, such as yogurt, coconut oil, prunes. She did take 2 Senokot today. 1. High-grade serous ovarian carcinoma, initially stage IIC. s/pp debulking. . on November 02, 2017, CT/PET scan: revealed Large, loculated, hypermetabolic soft tissue mass in the pelvis with extensive peritoneal and mesenteric-based metastatic disease in the abdomen/pelvis. further tissue to be obtained to send [facility] testing as well as assess for any evidence of microsatellite instability. Dr. Peacock discussed with patient and family on her last visit the pertinence of this testing and the possibility that there could be an actionable mutation or microsatellite instability of using immunotherapy. 2. Avoidance of standard adjuvant therapy with carboplatin and paclitaxel due to concern for toxicity and patient's history of multiple sclerosis. 3. Status post treatment with reduced dose chemotherapy, ketogenic diet, and insulin in [place], [place]. 4. Recent concerning symptoms and imaging consistent with recurrence. 5. Left hydronephrosis. plan possible ureteral stenting would be possible, but this will be reviewed with Dr. Espinal and/or Urology in a timely manner. 6. 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 that showed no new findings in September. an MRI brain was ordered on 11/11/17 PLAN - Transfer patient to ER Now - Plain abdominal series images for possible Bowel obstruction/Constipation. - Initiate Bowel regimen along with pain management. and treat as clinically indicated. - Telephone follow up made to patient today 12/02/2017. She reports feeling Much better today than yesterday 12/01/17 - She did have BM loose stools overnight 12/02/17 after ingestion of Mag citrate . - Patient has a Follow up appointment with PCP next week, - instructed to resume Bowel regimen on our encounter, with Colace daily in a few days to keep her bowel regular,, and Imodium if diarrhea, PRN and to notify cancer center with any issues or concerns. - Continue coordination of care with multidisciplinary team. - Followup with MD/Brennan per treatment protocol. Education, patient instructed to go to ER immediately . and or call Clinic upon discharge if any Shortness of Breath, Temp >/=100.4, fevers, chills, cardiac type chest pain, bleeding, excessive bruising, headaches, blurry vision, dizziness, abdominal pain, difficulty swallowing, and pain unrelieved by medic ation. TIME SPENT: 30 minutes 25> minutes includes but not limited to discussion, counselling and co-ordination~ of care. Discussion with other health care providers, record review, review of lab work, diagnostic tests. Plan discussed extensively with patient. All the questions answered today. Thank you for the opportunity to be involved in the care of Mrs. Marc Mohan. Billing Level: sick visit 4 CC Copies to: INA TABARES MD; HILARY PEACOCK MD ; JUVE FONSECA, ONC Nov 30, 2017 17:16
[2017-12-09 14:03] VITALS: BP 118/56
--- NOTE | 2017-12-09 20:39 | ONCOLOGY FOLLOW UP NOTE ---
EVENT DATE: December 09, 2017 REASON FOR FOLLOWUP 1. High-grade serous ovarian carcinoma, initially stage IIC. 2. Avoidance of standard adjuvant therapy with CARBOPLATIN and PACLITAXEL due to concern for toxicity and patient's history of multiple sclerosis. 3. Status post treatment with reduced dose chemotherapy, ketogenic diet, and insulin in [place], [place]. 4. Recent concerning symptoms and imaging consistent with recurrence. INTERIM HISTORY Kimberlee returns to clinic for a followup visit today. She is accompanied by her family. She reports that she is not feeling particularly well today. Over time, she has become more fatigued, and she has had more problems with abdominal bloating and pain. She has been having bowel movements and passing gas. She has not noticed any blood in her stools. She has not been particularly hungry, and she believes she has lost weight. She reports no shortness of breath, chest pain, or productive cough. She relates that there her anisocoria previously noted was thought to be due to SCOPOLAMINE PATCH. She is here with her family members to discuss next steps. ONCOLOGY HISTORY 1. July 11, 2016: Laparoscopic bilateral salpingo-oophorectomy and peritoneal biopsies. Pathology: Endometrial curettings show evidence of superficial portions of endometrium with crowded glands, favoring simple hyperplasia without atypia. 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 The fallopian tube was negative for carcinoma. The right ovary also contained serous carcinoma, high grade, and evidence of endosalpingiosis. The fallopian tube was negative for carcinoma. Estrogen receptor positivity of the tumor was noted to be 60% to 70% positive. Cytology of pelvic washing was negative for malignancy. 2. July 29, 2016: Patient undergoes robotic laparoscopic total hysterectomy with bilateral ovarian vessel remnant excisions, bilateral pelvic lymph node dissection, radial ovarian carcinoma debulking of the lower pelvic tumor with the aid of argon beam senior ios developer, pelvic dissection of ureters, bilateral retroperitoneal dissection, resection of bladder dome tumor with repair of cystectomy area, partial omentectomy with numerous staging biopsies of the upper abdomen, diagnostic laparoscopy with lysis of adhesions, and exam under anesthesia. Pathology revealed negative biopsies of right pelvic side wall, right upper abdomen, left upper abdomen, left pelvic side wall, and diaphragm. Sigmoid colon serosa, bladder serosa, and right ovarian vessels were positive for high-grade serous carcinoma. High-grade serous carcinoma was also found involving the uterine serosa. Ectocervix and endocervix were unremarkable. The endometrium showed no evidence of malignancy, and omentum was negative as well. One benign right pelvic lymph node and one benign left pelvic lymph node were noted. 3. Status post treatment with chemotherapy with a multidrug, dose reduced regimen in [place], [place], as well as ketogenic diet, and insulin. 4. CT scan of the abdomen and pelvis with contrast performed on October 19, 2017, reveals multiple pleural-based masses along the diaphragmatic surface and right lower thorax, ranging in size from 3 mm to 9 mm, new when compared to prior. Conglomerate of heterogeneous masses which appears to be extracapsular along the dome of the liver, also new. Numerous peritoneal implants throughout the abdomen and pelvis, most prominent low in the pelvis along the left-sided abdomen where there is matting of numerous loops of large and small bowel. Mild left hydronephrosis with mild prominence of the left ureter, likely related to peritoneal implants. Multiple soft tissue nodules along the anterior right abdominal wall, new. Large gallstone and enhancement of the gallbladder wall similar to the prior study. 5. November 02, 2017, CT/PET scan: Large, loculated, hypermetabolic soft tissue mass in the pelvis with extensive peritoneal and mesenteric-based metastatic disease in the abdomen/pelvis. There is potential involvement of the right lateral pelvic wall. No evidence of metastatic disease in the brain, head/neck, or chest. There is moderate left-sided hydronephrosis with level of obstruction in the mid pelvis. Gallstone noted as previously. PAST MEDICAL HISTORY 1. Ovarian cancer, as above. 2. Multiple sclerosis, not currently on therapy. 3. Reported left bundle-branch block. ALLERGIES MACROBID (facial swelling), PENICILLIN (hives/rash), SULFA (hives/rash). SOCIAL HISTORY The patient only occasionally drinks alcohol. She is a nonsmoker. There is no history of illicit drug use. CURRENT MEDICATIONS 1. Promethazine. 2. Meclizine. 3. Scopolamine. 4. Tetrahydrozoline eye drops. 5. Chloroquine. 6. Estradiol/Vagifem. 7. tablet. 8. Vitamin D3. 9. Protandim. 10. Meloxicam p.r.n. 11. Probiotic. 12. [place]-3 fish oil. 13. Multivitamin. 14. Magnesium. 15. Calcium/magnesium/zinc/vitamin D tablet. 16. Baby aspirin. VITAL SIGNS Temperature is 97.8, blood pressure 118/56, heart rate is 79, respirations 16, oxygen saturation is 92% on room air. Weight is 50.8 kg. PHYSICAL EXAMINATION GENERAL: Patient is alert and oriented times three, in no apparent distress, sitting in her wheelchair. She is thin, and she appears tired and chronically ill. She is interactive and pleasant. HEENT: Anicteric sclerae. NEUROLOGIC: Generalized weakness. ABDOMINAL: Distended abdomen with modest tenderness to deep palpation and shifting dullness. EXTREMITIES: Some edema of the bilateral lower extremities. SKIN: No concerning rash or lesion. IMAGING Recent CT scan shows increasing peritoneal/omental nodularity and ascites. ASSESSMENT AND PLAN Recurrent ovarian cancer. I had a good visit with Kimberlee and her family members today. As discussed, unfortunately, [facility] testing results are not yet available as there was some delay. I would expect for these results to return in the next one to two weeks. I have reviewed her situation with Dr. Espinal in Gynecologic Oncology in [place], and we agree that surgical intervention at this point would be less than optimal. The patient is not at all interested in cytotoxic chemotherapy. We again discussed the possibility of palliative treatment based on molecular profiling studies, including a PARP inhibitor if there is evidence of BRCA mutation. As discussed, I will be back in touch with them when these results return. In the meantime, she does have evidence of increasing ascites, and I do think that she could feel much better if she underwent a therapeutic paracentesis. This will be ordered. We moved on to discuss the importance of hospice involvement as well. If she chooses no further treatment, I do think it would be pina to have hospice involved as soon as possible. In addition, it would be pina to have them involved early for the sake of familiarity. I will plan to see the patient back during my next visit to [place] or sooner if there are questions or concerns. I spent a total of 30 minutes with the patient and her family members today, and 25 minutes of this were spent in direct counseling and coordination of care. ESTHER
[2017-12-29 11:01] VITALS: BP 113/37
[2017-12-29 13:10] VITALS: BP 118/54
--- NOTE | 2017-12-29 20:39 | ONCOLOGY FOLLOW UP NOTE ---
EVENT DATE: December 29, 2017 CHIEF COMPLAINT "I've had terrible diarrhea, and I think I have a bedsore." HISTORY OF PRESENT ILLNESS Patient is a 72-year-old female with known recurrent ovarian cancer who was seen today as a work-in. She is accompanied by her daughter. She presents in a very weakened condition and relates having had alternating constipation with diarrhea. When treating the constipation, she used half a bottle of magnesium citrate and then has had diarrhea for the past seven-plus days. She is very weak and hypotensive. She also has developed a small sacral decubitus ulcer. She continues to use mistletoe as her treatment option. We are awaiting the results of [employer] testing. She is very fatigued and feels she is not sleeping well due to the diarrhea. The patient is seen every Thursday for paracentesis. They obtain between 3 and 4 L at each visit. ONCOLOGY HISTORY 1. July 11, 2016: Laparoscopic bilateral salpingo-oophorectomy and peritoneal biopsies. Pathology: Endometrial curettings show evidence of superficial portions of endometrium with crowded glands, favoring simple hyperplasia without atypia. 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 The fallopian tube was negative for carcinoma. The right ovary also contained serous carcinoma, high grade, and evidence of endosalpingiosis. The fallopian tube was negative for carcinoma. Estrogen receptor positivity of the tumor was noted to be 60% to 70% positive. Cytology of pelvic washing was negative for malignancy. 2. July 29, 2016: Patient undergoes robotic laparoscopic total hysterectomy with bilateral ovarian vessel remnant excisions, bilateral pelvic lymph node dissection, radial ovarian carcinoma debulking of the lower pelvic tumor with the aid of argon beam cat breeder, pelvic dissection of ureters, bilateral retroperitoneal dissection, resection of bladder dome tumor with repair of cystectomy area, partial omentectomy with numerous staging biopsies of the upper abdomen, diagnostic laparoscopy with lysis of adhesions, and exam under anesthesia. Pathology revealed negative biopsies of right pelvic side wall, right upper abdomen, left upper abdomen, left pelvic side wall, and diaphragm. Sigmoid colon serosa, bladder serosa, and right ovarian vessels were positive for high-grade serous carcinoma. High-grade serous carcinoma was also found involving the uterine serosa. Ectocervix and endocervix were unremarkable. The endometrium showed no evidence of malignancy, and omentum was negative as well. One benign right pelvic lymph node and one benign left pelvic lymph node were noted. 3. Status post treatment with chemotherapy with a multidrug, dose reduced regimen in [place], [place], as well as ketogenic diet, and insulin. 4. CT scan of the abdomen and pelvis with contrast performed on October 19, 2017, reveals multiple pleural-based masses along the diaphragmatic surface and right lower thorax, ranging in size from 3 mm to 9 mm, new when compared to prior. Conglomerate of heterogeneous masses which appears to be extracapsular along the dome of the liver, also new. Numerous peritoneal implants throughout the abdomen and pelvis, most prominent low in the pelvis along the left-sided abdomen where there is matting of numerous loops of large and small bowel. Mild left hydronephrosis with mild prominence of the left ureter, likely related to peritoneal implants. Multiple soft tissue nodules along the anterior right abdominal wall, new. Large gallstone and enhancement of the gallbladder wall similar to the prior study. 5. November 02, 2017, CT/PET scan: Large, loculated, hypermetabolic soft tissue mass in the pelvis with extensive peritoneal and mesenteric-based metastatic disease in the abdomen/pelvis. There is potential involvement of the right lateral pelvic wall. No evidence of metastatic disease in the brain, head/neck, or chest. There is moderate left-sided hydronephrosis with level of obstruction in the mid pelvis. Gallstone noted as previously. MEDICAL HISTORY 1. Recurrent ovarian cancer. 2. Multiple sclerosis, not currently on therapy. 3. Reported left bundle-branch block. SOCIAL HISTORY Patient is . She has two daughters. She does not smoke. FAMILY HISTORY Patient was found to have a BRCA1 mutation. Her two daughters have been tested, and both are negative for this mutation. REVIEW OF SYSTEMS A 14-point review of systems is performed and is negative except as stated above. She does have peripheral edema and ongoing ascites. PHYSICAL EXAMINATION VITAL SIGNS: Blood pressure 113/37, pulse 112, respirations 14, temperature 97.2, O2 sat 95%. GENERAL: Patient is a well-developed, but ill-appearing female in no acute distress. She appears fatigued. She is in a wheelchair today due to overall weakness. HEENT: Sclerae anicteric. EOMs intact. Oral mucosa slightly dry. NECK: Supple. No adenopathy. LYMPH NODES: No palpable adenopathy. CARDIOVASCULAR: Heart rate mildly tachycardic with regular rhythm. LUNGS: Slightly diminished in the right lower lobe, but otherwise clear. ABDOMEN: Distended with significant ascites on exam today. EXTREMITIES: She has 2 to 3+ pretibial edema bilaterally. NEUROLOGIC: Nonfocal. SKIN: ~ 0.25cm open area on sacrum; no evidence of discharge or infection; mild erythema. LABORATORY No lab today. ASSESSMENT AND PLAN 1. Recurrent ovarian cancer. Patient is seen today as a work-in for several issues. We are awaiting the results of [employer] testing. She is currently using mistletoe as her treatment for her cancer. 2. Hypotension. Blood pressure 113/37 with mild tachycardia. We discussed hydration, and I will give her 500 mL of D51/2 normal saline. She did improve after hydration with blood pressure of 118/54 and pulse 76. 3. Gastrointestinal. Recent issues with constipation alternating with diarrhea. She used magnesium citrate and has had diarrhea for the past seven days. She relates she is very sensitive to medications and has been hesitant to take Imodium. We discussed that she was fairly dehydrated from the diarrhea, but she feels this is ending. We then talked about management and prevention of constipation. I recommended once her diarrhea was clearly stopped, she consider using MiraLAX one-half dose daily as needed. She will monitor this. 4. Decubitus ulcer. She has a very small slightly open area on her coccyx. I will request Home Health to evaluate her and for management of the decubitus ulcer. 5. Ascites. She has been undergoing paracentesis weekly. We spent some time talking about the Aspira catheter. She would like to visit with Dr. Gonzales, the surgeon, to discuss this option. Home Health can also help manage this at home if she chooses this option. 6. End of life care. We also spent some time discussing hospice. She has talked about this with Dr. Devlin in the past. She states she had a phone conversation with hospice, but felt she was not "quite ready." Her one daughter lives here in [place], and a second daughter is coming today. I offered to set up a hospice informational visit so they could meet with Ms. Tran and her family at her home, and she agrees to this. 7. Follow up on 01/06/[address] Devlin or earlier if there is a problem. MTDD
[2018-01-06 14:31] VITALS: BP 145/72
[2018-01-06 15:01] VITALS: BP 130/64
--- NOTE | 2018-01-13 14:25 | ONCOLOGY FOLLOW UP NOTE ---
EVENT DATE: January 06, 2018 REASON FOR FOLLOWUP 1. High-grade serous ovarian carcinoma, initially stage IIC. 2. Avoidance of standard adjuvant therapy with CARBOPLATIN and PACLITAXEL due to concern for toxicity and patient's history of multiple sclerosis. 3. Status post treatment with reduced dose chemotherapy, ketogenic diet, and insulin in [place], [place]. 4. Recent concerning symptoms and imaging consistent with recurrence. INTERIM HISTORY Kimberlee returns to clinic for a followup visit today. She is accompanied by her family. Since our last visit, she has had further issues with recurrent ascites requiring paracentesis. She does tend to feel quite a bit better after the procedures but frequency has been increasing. She also has developed a small decubitus ulcer near the coccyx. She has had some variability in her bowel habits and this has been challenging. She feels weak and tired. She does feel short of breath with exertion. Her appetite has not been particularly good and she continues to lose weight. She and her family members have questions for ongoing management but their plans are in place for hospice care. ONCOLOGY HISTORY 1. July 11, 2016: Laparoscopic bilateral salpingo-oophorectomy and peritoneal biopsies. Pathology: Endometrial curettings show evidence of superficial portions of endometrium with crowded glands, favoring simple hyperplasia without atypia. 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 The fallopian tube was negative for carcinoma. The right ovary also contained serous carcinoma, high grade, and evidence of endosalpingiosis. The fallopian tube was negative for carcinoma. Estrogen receptor positivity of the tumor was noted to be 60% to 70% positive. Cytology of pelvic washing was negative for malignancy. 2. July 29, 2016: Patient undergoes robotic laparoscopic total hysterectomy with bilateral ovarian vessel remnant excisions, bilateral pelvic lymph node dissection, radial ovarian carcinoma debulking of the lower pelvic tumor with the aid of argon beam biomedical field service engineer, pelvic dissection of ureters, bilateral retroperitoneal dissection, resection of bladder dome tumor with repair of cystectomy area, partial omentectomy with numerous staging biopsies of the upper abdomen, diagnostic laparoscopy with lysis of adhesions, and exam under anesthesia. Pathology revealed negative biopsies of right pelvic side wall, right upper abdomen, left upper abdomen, left pelvic side wall, and diaphragm. Sigmoid colon serosa, bladder serosa, and right ovarian vessels were positive for high-grade serous carcinoma. High-grade serous carcinoma was also found involving the uterine serosa. Ectocervix and endocervix were unremarkable. The endometrium showed no evidence of malignancy, and omentum was negative as well. One benign right pelvic lymph node and one benign left pelvic lymph node were noted. 3. Status post treatment with chemotherapy with a multidrug, dose reduced regimen in [place], [place], as well as ketogenic diet, and insulin. 4. CT scan of the abdomen and pelvis with contrast performed on October 19, 2017, reveals multiple pleural-based masses along the diaphragmatic surface and right lower thorax, ranging in size from 3 mm to 9 mm, new when compared to prior. Conglomerate of heterogeneous masses which appears to be extracapsular along the dome of the liver, also new. Numerous peritoneal implants throughout the abdomen and pelvis, most prominent low in the pelvis along the left-sided abdomen where there is matting of numerous loops of large and small bowel. Mild left hydronephrosis with mild prominence of the left ureter, likely related to peritoneal implants. Multiple soft tissue nodules along the anterior right abdominal wall, new. Large gallstone and enhancement of the gallbladder wall similar to the prior study. 5. November 02, 2017, CT/PET scan: Large, loculated, hypermetabolic soft tissue mass in the pelvis with extensive peritoneal and mesenteric-based metastatic disease in the abdomen/pelvis. There is potential involvement of the right lateral pelvic wall. No evidence of metastatic disease in the brain, head/neck, or chest. There is moderate left-sided hydronephrosis with level of obstruction in the mid pelvis. Gallstone noted as previously. PAST MEDICAL HISTORY 1. Ovarian cancer, as above. 2. Multiple sclerosis, not currently on therapy. 3. Reported left bundle-branch block. ALLERGIES MACROBID (facial swelling), PENICILLIN (hives/rash), SULFA (hives/rash). SOCIAL HISTORY The patient only occasionally drinks alcohol. She is a nonsmoker. There is no history of illicit drug use. CURRENT MEDICATIONS 1. Promethazine. 2. Meclizine. 3. Scopolamine. 4. Tetrahydrozoline eye drops. 5. Chloroquine. 6. Estradiol/Vagifem. 7. tablet. 8. Vitamin D3. 9. Protandim. 10. Meloxicam p.r.n. 11. Probiotic. 12. [place]-3 fish oil. 13. Multivitamin. 14. Magnesium. 15. Calcium/magnesium/zinc/vitamin D tablet. 16. Baby aspirin. 17. Mistletoe. VITAL SIGNS Temperature is 97.0, blood pressure 130/64, heart rate is 83, respirations 16, oxygen saturation is 92% on room air. PHYSICAL EXAMINATION GENERAL: Patient is alert and oriented x3, in no apparent distress, sitting in her wheelchair. She appears very thin and frail, tired. HEENT: Anicteric sclerae. NEUROLOGIC: Generalized weakness but I did not test her gait today. EXTREMITIES: Some edema of the bilateral lower extremities. SKIN: No concerning rash or lesion on cursory exam today. LABORATORY STUDIES/IMAGING Reviewed per the [facility] record. ASSESSMENT AND PLAN Recurrent/advanced ovarian cancer. I had a good visit with Kimberlee and her family members today. Since our last visit, her overall condition has continued to deteriorate. She has had recurrent large volume ascites requiring paracentesis. She has done well with the procedures and symptomatically they are quite helpful. We discussed the possibility of catheter placement. We also moved on to discuss that [employer] testing unfortunately has not been performed due to ongoing issues with locating and processing the specimen. As discussed, given her rapidly dwindling performance status, I do not feel that results of the [employer] testing would have been helpful due to lack of capacity to treat her further for the cancer. I do think moving forward with hospice care is our biggest priority and will be the most helpful for her moving forward. I would be more than happy to see her in the coming month when I return to [place]. The patient and her family members had multiple insightful and appropriate questions for me today and I believe I answered all of their questions to their satisfaction. I spent a total of 30 minutes of time face to face with them today and 25 minutes of this were spent in direct counseling and coordination of care. ESTHER
[~2018-02-03] VITALS: Ht 162.6 cm; Wt 50.8 kg
[~2018-02-03 10:30] MED LIST changes: +ALTEPLASE RECOMB 2 MG VIAL IVP PRN; +D5 1/2 NS 500 ML BAG 500 ML IV PRN; +DEXTROSE 5%(*) 100 ML BAG 100 ML IVPB PRN; +GADOBENATE 529MG/1ML 15ML VIAL IVP ONE; +HEPARIN FLSH (PORT) 500 UN/5ML IVP PRN; +LIDOCAINE/SOD BICARB 8.4% SYR ID PRN; +NS(*) 0.9% 100 ML BAG 100 ML IVPB PRN; +NS(*) 0.9% 500 ML BAG 500 ML IV PRN; +WATER FOR INJ,STERILE 20 ML IVP PRN
[2018-02-03 10:53] VITALS: BP 106/60
--- NOTE | 2018-02-03 20:35 | ONCOLOGY FOLLOW UP NOTE ---
EVENT DATE: February 03, 2018 REASON FOR FOLLOWUP 1. High-grade serous ovarian carcinoma, initially stage IIC. 2. Avoidance of standard adjuvant therapy with CARBOPLATIN and PACLITAXEL due to concern for toxicity and patient's history of multiple sclerosis. 3. Status post treatment with reduced dose chemotherapy, ketogenic diet, and insulin in [place], [place]. 4. Recent concerning symptoms and imaging consistent with recurrence. INTERIM HISTORY Kimberlee returns to clinic for a followup visit today. She is accompanied by her and daughter. Since our last visit, she has been feeling quite tired and weak. She currently has care at home with home health, but not with hospice. Hospice had visited with her recently, and Kimberlee reports that it seemed somewhat forceful, and it was assumed that she was going to go into hospice care when she was only looking for information. She has had some ongoing abdominal bloating from ascites. She feels better after she uses her Aspira catheter for drainage at home. She is doing it twice a week now. She reports shortness of breath, and she is now on oxygen. She is frustrated because she feels that she would like to get stronger, and the opposite is happening. ONCOLOGY HISTORY 1. July 11, 2016: Laparoscopic bilateral salpingo-oophorectomy and peritoneal biopsies. Pathology: Endometrial curettings show evidence of superficial portions of endometrium with crowded glands, favoring simple hyperplasia without atypia. 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 The fallopian tube was negative for carcinoma. The right ovary also contained serous carcinoma, high grade, and evidence of endosalpingiosis. The fallopian tube was negative for carcinoma. Estrogen receptor positivity of the tumor was noted to be 60% to 70% positive. Cytology of pelvic washing was negative for malignancy. 2. July 29, 2016: Patient undergoes robotic laparoscopic total hysterectomy with bilateral ovarian vessel remnant excisions, bilateral pelvic lymph node dissection, radial ovarian carcinoma debulking of the lower pelvic tumor with the aid of argon beam automated manufacturing instructor, pelvic dissection of ureters, bilateral retroperitoneal dissection, resection of bladder dome tumor with repair of cystectomy area, partial omentectomy with numerous staging biopsies of the upper abdomen, diagnostic laparoscopy with lysis of adhesions, and exam under anesthesia. Pathology revealed negative biopsies of right pelvic side wall, right upper abdomen, left upper abdomen, left pelvic side wall, and diaphragm. Sigmoid colon serosa, bladder serosa, and right ovarian vessels were positive for high-grade serous carcinoma. High-grade serous carcinoma was also found involving the uterine serosa. Ectocervix and endocervix were unremarkable. The endometrium showed no evidence of malignancy, and omentum was negative as well. One benign right pelvic lymph node and one benign left pelvic lymph node were noted. 3. Status post treatment with chemotherapy with a multidrug, dose reduced regimen in [place], [place], as well as ketogenic diet, and insulin. 4. CT scan of the abdomen and pelvis with contrast performed on October 19, 2017, reveals multiple pleural-based masses along the diaphragmatic surface and right lower thorax, ranging in size from 3 mm to 9 mm, new when compared to prior. Conglomerate of heterogeneous masses which appears to be extracapsular along the dome of the liver, also new. Numerous peritoneal implants throughout the abdomen and pelvis, most prominent low in the pelvis along the left-sided abdomen where there is matting of numerous loops of large and small bowel. Mild left hydronephrosis with mild prominence of the left ureter, likely related to peritoneal implants. Multiple soft tissue nodules along the anterior right abdominal wall, new. Large gallstone and enhancement of the gallbladder wall similar to the prior study. 5. November 02, 2017, CT PET scan: Large, loculated, hypermetabolic soft tissue mass in the pelvis with extensive peritoneal and mesenteric-based metastatic disease in the abdomen/pelvis. There is potential involvement of the right lateral pelvic wall. No evidence of metastatic disease in the brain, head/neck, or chest. There is moderate left-sided hydronephrosis with level of obstruction in the mid pelvis. Gallstone noted as previously. PAST MEDICAL HISTORY 1. Ovarian cancer, as above. 2. Multiple sclerosis, not currently on therapy. 3. Reported left bundle-branch block. ALLERGIES MACROBID (facial swelling), PENICILLIN (hives/rash), SULFA (hives/rash). SOCIAL HISTORY The patient only occasionally drinks alcohol. She is a nonsmoker. There is no history of illicit drug use. CURRENT MEDICATIONS 1. Promethazine. 2. Meclizine. 3. Scopolamine. 4. Tetrahydrozoline eye drops. 5. Chloroquine. 6. Estradiol/Vagifem. 7. tablet. 8. Vitamin D3. 9. Protandim. 10. Meloxicam p.r.n. 11. Probiotic. 12. [place]-3 fish oil. 13. Multivitamin. 14. Magnesium. 15. Calcium/magnesium/zinc/vitamin D tablet. 16. Baby aspirin. 17. Mistletoe. VITAL SIGNS Patient is afebrile. Blood pressure 106/60, heart rate is 100, respirations 16, oxygen saturation is 100% on 2L. PHYSICAL EXAMINATION GENERAL: Patient is alert and oriented times three, in no apparent distress, sitting in wheelchair. She appears very frail, cachectic. She is interactive and pleasant. HEENT: Anicteric sclerae. NEUROLOGIC: Generalized weakness, although I did not test her gait today. ABDOMEN: Distended and slightly tender to gentle palpation. EXTREMITIES: Bilateral lower extremity edema without significant tenderness. LABORATORY STUDIES AND IMAGING None today. ASSESSMENT AND PLAN End-stage ovarian cancer. I had a good visit with Kimberlee and her family members today. Symptomatically, she continues to be quite weak, tired, and she continues to have issues with recurrent ascites requiring drainage via the Aspira catheter. As discussed, her cancer is progressing, and it is manifesting with her current symptoms. She is not a candidate to consider additional systemic palliative therapy, and I have strongly recommended that she reconsider hospice care as opposed to home health which is currently being utilized. We will plan to follow up here as needed, but unfortunately, I do think that time is short, making hospice care quite important. The patient and her family members had several additional questions for me today, and I believe I answered all their questions to their satisfaction. I spent a total of 30 minutes of total time face to face with the patient and her family members today, and 25 minutes of this were spent in direct counseling and coordination of care. ESTHER
[2018-02-08] MEDS ORDERED: TRAM-420 PO (10:16)
== END 2018-02-09 ==
LOC: ONC 10:30
PROVIDERS: ATTEND Internal Medicine Medical Oncology
DX: C56.2 Malignant neoplasm of left ovary (principal); Z92.21 Personal history of antineoplastic chemotherapy; Z79.899 Other long term (current) drug therapy; R53.83 Other fatigue
CPT/HCPCS: 70553; 85025; 86304; A9577; G0463; J1642; 82040; 82247; 82310; 82374; 82435; 82565; 82947; 84075; 84132; 84155; 84295; 84450; 84460; 84520; 99202; 99212

== ENCOUNTER 2018-02-11 17:00 | Observation (INO) | payer MEDICARE, OTHER ==
[2016-10-27 08:04] VITALS: Wt 55.3 kg
[~2018-02-11 17:00] MED LIST changes: -NSNAS; -SODI30SP6 NS
--- NOTE | 2018-02-11 17:09 | ER Report ---
History and Physical Time Seen By : 17:09 HPI/ROS CHIEF COMPLAINT: Shortness of breath HISTORY OF PRESENT ILLNESS: This is a 72-year-old female who presents to the emergency department, with her for shortness of breath. The patient has a history of high-grade ovarian carcinoma has been on chemotherapy, also has a history of multiple sclerosis. She has had several pleural effusions drained, has had lower extremity edema for the past couple of months, has been on furosemide,. Yesterday she began to have increased shortness of breath, significant only worse today. She did go see her primary care provider yesterday, today they did a chest x-ray, after the x-ray was taken, the patient was sent to the emergency department for a possible thoracentesis. She uses 2 L oxygen 24 7. Since yesterday she cannot only speak in full sentences for about 2-3 minutes and becomes short of breath. She also has nonpitting a edema of the lower extremities up into her abdomen. She also had an indwelling tunneled peritoneal catheter placed by Dr. Urena, [facility] does follow up with her roughly 3 times a week to drain peritoneal fluid, the cat approximately 2 years off each time. She denies fevers or chills. She does have intermittent nausea, no vomiting. No diarrhea. No chest pain. REVIEW OF SYSTEMS: Constitutional: No fever, no chills. Eyes: No discharge. ENT: No sore throat. Cardiovascular: No chest pain, no palpitations. Respiratory: As above. Gastrointestinal: As above. Genitourinary: No hematuria. Musculoskeletal: As above. Skin: No rashes. Neurological: No headache. Allergies: Coded Allergies: Penicillins (Verified Allergy, Severe, Angioedema and hives, 02/11/18) Sulfa (Sulfonamide Antibiotics) (Verified Allergy, Severe, facial swelling and hives, 02/11/18) nitrofurantoin (Verified Allergy, Severe, Angioedema and hives, 02/11/18) oxycodone (Verified Allergy, Intermediate, ITCHING and hives, 02/11/18) dimethyl fumarate (Verified Allergy, Unknown, 02/11/18) glatiramer (copolymer 1) (Verified Allergy, Unknown, 02/11/18) interferon beta-1a (Verified Allergy, Unknown, 02/11/18) ondansetron (Verified Allergy, Unknown, Itching, 02/11/18) zolpidem (Verified Allergy, Unknown, 02/11/18) Home Meds Active Scripts Tramadol Hcl (TRAMADOL HCL) 50 Mg Tablet, 1-2 TAB PO Q4H PRN for PAIN, #30 TAB 0 Refills Prov:INA SWENSON MD 02/08/18 Promethazine Hcl (PROMETHAZINE HCL) 25 Mg Tablet, 1 TAB PO Q8H PRN for NAUSEA/VOMITING, #30 TAB 3 Refills Prov:INA SWENSON MD 01/20/18 Meclizine Hcl (MECLIZINE HCL) 25 Mg Tablet, 25 MG PO Q8H PRN for DIZZINESS, #20 TAB 0 Refills Prov:AGUSTIN MADDOX MD 11/11/17 Tetrahydrozoline Hcl (EYE DROPS) 15 Ml Drops, 15 ML OP 2-3XD for 90 Days, Prov:VIN BROWN MD 06/26/17 Reported Medications Sodium Chloride (SALINE NASAL SPRAY) 30 Ml [place], 30 ML NS PRN, SPRAY 02/12/18 Saline (AYR SALINE NASAL GEL) 14.1 Gm Gel, 14.1 GM NA PRN, GEL 02/12/18 Lorazepam (ATIVAN) 0.5 Mg Tablet, 0.25 MG PO Q4-6H 02/11/18 Furosemide (FUROSEMIDE) 20 Mg Tablet, 2 TAB PO QDAY, TAB 01/06/18 Sodium Selenite (SODIUM SELENITE) 1 Gm Powder, 1 GM MC QDAY 01/06/18 [Gcmaf] No Conflict Check, 60 MG PO QDAY 01/06/18 [[place]] No Conflict Check, PO QDAY 01/06/18 [artemisinin] No Conflict Check 11/30/17 Potassium Chloride (POTASSIUM CHLORIDE) 10 Meq Tab.er.prt, 20 MEQ PO QDAY for 30 Days, #30 0 Refills 11/11/17 Cholecalciferol (Vitamin D3) (VITAMIN D3) 1,000 Unit Tablet, 2500 UNIT PO QDAY, TAB 11/11/17 Lactobacillus Combination No.4 (PROBIOTIC) 1 Each Capsule, 1 EACH PO QDAY, CAPSULE 1 OUNCE LIQUID LACTOBACILLUS 07/02/16 [place]-3 Fatty Acids/Fish Oil (OMEGA 3 FISH OIL SOFTGEL) 1 Each Capsule.dr, 2 EACH PO QDAY 07/02/16 Multivitamin (MULTI-DAY VITAMINS) 1 Each Tablet, 1 EACH PO QDAY 07/02/16 Magnesium Oxide (MAGNESIUM) 250 Mg Tablet, 500 MG PO QDAY 07/02/16 Calcium Carb/Vit D3/Mag11/Zinc (KANUZBU-MKG-THWL-VIT D TABLET) 1 Each Tablet, 1 EACH PO QDAY 07/02/16 Discontinued Reported Medications Aspirin (ASPIR 81) 81 Mg Tablet.dr, 81 MG PO QDAY, TAB 07/02/16 Past Medical/Surgical History The patient has a past medical and surgical history of multiple sclerosis, headaches, left bundle branch block, pleural effusions, irritable bowel syndrome, ovarian cancer, urinary urgency, urinary tract and check shins, elizabeth tebral fracture, wears glasses, has had chemotherapy, cystoscopy, hysterectomy, mole excision, paracentesis and thoracentesis. Reviewed Nurses Notes: Yes Hx Smoking: No Smoking Status: Never Smoker Exposure to Second Hand Smoke?: No Hx Substance Use Disorder: No Hx Alcohol Use: No Constitutional Physical Exam General Appearance: The patient is alert, has no immediate need for airway protection and no signs of toxicity, increased work of breathing while talking. Eyes: Pupils equal and round no pallor or injection. ENT, Mouth: Mucous membranes are moist. Respiratory: Right mid to lower lung sounds absent, diminished right upper lobe, left lower lobe diminished, clear left middle and upper lobes. Cardiovascular: Regular rate and rhythm, no murmurs, clicks or rubs. Gastrointestinal: Abdomen is round, soft and full feeling with pressure. Normoactive bowel sounds. No masses or abdominal bruits. Neurological: Alert and oriented 4. Moving all extremities. Following all commands. No focal neuro deficits. Skin: Warm and dry, no rashes. Musculoskeletal: Neck is supple non tender. Extremities nonpitting edema to bilateral lower extremities. DIFFERENTIAL DIAGNOSIS: After history and physical exam differential diagnosis was considered for shortness of breath including but not limited to pulmonary infectious process, COPD, asthma, pulmonary embolus and congestive heart failure. Medical Decision Making Data Points Laboratory Hematology Test 02/11/18 17:45 02/11/18 18:59 Red Blood Count 3.19 M/uL (4.17-5.56) Mean Corpuscular Volume 100.4 fL (80.0-96.0) Mean Corpuscular Hemoglobin 34.7 pg (26.0-33.0) Mean Corpuscular Hemoglobin Concent 34.5 g/dL (32.0-36.0) Red Cell Distribution Width 16.7 % (11.5-14.5) Mean Platelet Volume 7.5 fL (7.2-11.1) Neutrophils (%) (Auto) 77.0 % (39.4-72.5) Lymphocytes (%) (Auto) 8.3 % (17.6-49.6) Monocytes (%) (Auto) 14.1 % (4.1-12.4) Eosinophils (%) (Auto) 0.3 % (0.4-6.7) Basophils (%) (Auto) 0.3 % (0.3-1.4) Nucleated RBC Relative Count (auto) 0.1 /100WBC Neutrophils # (Auto) 6.3 K/uL (2.0-7.4) Lymphocytes # (Auto) 0.7 K/uL (1.3-3.6) Monocytes # (Auto) 1.2 K/uL (0.3-1.0) Eosinophils # (Auto) 0.0 K/uL (0.0-0.5) Basophils # (Auto) 0.0 K/uL (0.0-0.1) Nucleated RBC Absolute Count (auto) 0.01 K/uL Prothrombin Time 14.5 seconds (12.0-14.4) Prothromb Time International Ratio 1.13 Sodium Level 129 mmol/L (137-145) Potassium Level 4.8 mmol/L (3.5-5.0) Chloride Level 96 mmol/L (98-107) Carbon Dioxide Level 26 mmol/L (22-31) Blood Urea Nitrogen 29 mg/dl (7-18) Creatinine 0.60 mg/dl (0.52-1.04) Glomerular Filtration Rate Calc > 60.0 Random Glucose 95 mg/dl (75-110) Calcium Level 7.9 mg/dl (8.4-10.2) Magnesium Level 2.2 mg/dl (1.7-2.2) Total Bilirubin < 0.1 mg/dl (0.2-1.3) Aspartate Amino Transf (AST/SGOT) 31 U/L (0-35) Alanine Aminotransferase (ALT/SGPT) 20 U/L (0-56) Alkaline Phosphatase 202 U/L (0-126) Troponin I < 0.012 ng/ml B-Type Natriuretic Peptide 68 pg/ml (0-100) Total Protein 5.4 g/dl (6.3-8.2) Albumin 2.5 g/dl (3.5-5.0) Activated Partial Thromboplast Time 28 seconds (23-35) Chemistry Test 02/11/18 17:45 02/11/18 18:59 White Blood Count 8.2 k/uL (4.5-11.0) Red Blood Count 3.19 M/uL (4.17-5.56) Hemoglobin 11.1 g/dL (12.0-16.0) Hematocrit 32.1 % (34.0-47.0) Mean Corpuscular Volume 100.4 fL (80.0-96.0) Mean Corpuscular Hemoglobin 34.7 pg (26.0-33.0) Mean Corpuscular Hemoglobin Concent 34.5 g/dL (32.0-36.0) Red Cell Distribution Width 16.7 % (11.5-14.5) Platelet Count 215 K/uL (150-450) Mean Platelet Volume 7.5 fL (7.2-11.1) Neutrophils (%) (Auto) 77.0 % (39.4-72.5) Lymphocytes (%) (Auto) 8.3 % (17.6-49.6) Monocytes (%) (Auto) 14.1 % (4.1-12.4) Eosinophils (%) (Auto) 0.3 % (0.4-6.7) Basophils (%) (Auto) 0.3 % (0.3-1.4) Nucleated RBC Relative Count (auto) 0.1 /100WBC Neutrophils # (Auto) 6.3 K/uL (2.0-7.4) Lymphocytes # (Auto) 0.7 K/uL (1.3-3.6) Monocytes # (Auto) 1.2 K/uL (0.3-1.0) Eosinophils # (Auto) 0.0 K/uL (0.0-0.5) Basophils # (Auto) 0.0 K/uL (0.0-0.1) Nucleated RBC Absolute Count (auto) 0.01 K/uL Prothrombin Time 14.5 seconds (12.0-14.4) Prothromb Time International Ratio 1.13 Glomerular Filtration Rate Calc > 60.0 Calcium Level 7.9 mg/dl (8.4-10.2) Magnesium Level 2.2 mg/dl (1.7-2.2) Total Bilirubin < 0.1 mg/dl (0.2-1.3) Aspartate Amino Transf (AST/SGOT) 31 U/L (0-35) Alanine Aminotransferase (ALT/SGPT) 20 U/L (0-56) Alkaline Phosphatase 202 U/L (0-126) Troponin I < 0.012 ng/ml B-Type Natriuretic Peptide 68 pg/ml (0-100) Total Protein 5.4 g/dl (6.3-8.2) Albumin 2.5 g/dl (3.5-5.0) Activated Partial Thromboplast Time 28 seconds (23-35) Coagulation Test 02/11/18 17:45 02/11/18 18:59 Prothrombin Time 14.5 seconds Prothromb Time International Ratio 1.13 Activated Partial Thromboplast Time 28 seconds EKG/Imaging EKG Interpretation 12 lead EKG: Time of EKG 1801. Rhythm: Normal sinus rhythm, ventricular rate 97 bpm. Bond: normal QRS: Low voltage ST segments: normal Previous EKG from 10/26/2016 showing sinus tachycardia, today's EKG showing low voltage, improved EKG from the previous one, current EKG showing inverted T-wave in V1, this is different from the previous EKG. Poor R wave progression. Imaging INDICATION: . Shortness of breath DATE: 02/11/2018 5:18 PM. TECHNIQUE: CHEST PA AND LAT COMPARISON: Chest radiograph January 25, 2018 FINDINGS: The right-sided pleural effusion is moderate in size and has increased from the comparison. There continues to be a small left pleural effusion. The right chest port appears unchanged likely terminating in the SVC. IMPRESSION: Moderate size right pleural effusion has increased in volume since January 25, 2018. Persistent small left pleural effusion. Report Dictated By: Doyle Dos Santos MD at 02/11/2018 5:18 PM Report E-Signed By: Doyle Dos Santos MD at 02/11/2018 5:19 PM WSN:[email or web address] ED Course/Re-evaluation Clinical Indication for ER IV: IV Access ED Course The patient was admitted to room. A history and physical were obtained. Differen tial diagnoses were considered. The patient's port was accessed, a CBC, CMP, troponin, PT and INR were obtained. The laboratory studies are similar to the previous lab studies, the patient's sodium is 129, this is similar to her previous studies. The PTT is 180, repeat PTT 28. I did update Dr. Wyatt and Dr. Wu, Dr. Wyatt will come and evaluate the patient for possible thoracentesis, as noted below. A thoracentesis was performed by Dr. Wyatt is note. Patient did well during the procedure. A postprocedure chest x-ray will be completed. See Dr. Wyatt's note for procedure. The patient will be admitted to Dr. Wyatt's services for observation overnight. 02/11/2018 7:01:46 pm I did speak with Dr. Wyatt, the surgeon skin lifter bacon regarding the patient's case, he said he would be willing to perform the thoracentesis however with the PTT at 180 he felt that admitting the patient to the hospital, having platelets transported over from another facility doing the procedure in the morning would be more appropriate if the patient is agreeable, the patient is agreeable with this plan of care. I did speak with Dr. Wu, the hospitalist on-call, as the patient does have a port we will draw peripherally to see if the PTT is different from the lab studies drawn from the port. The patient is agreeable with this. 02/11/2018 7:53:21 pm the repeat PTT is 28, I did speak with Dr. Waytt, he will, in speak with the patient and her and, likely perform the thoracentesis after the procedure the patient will likely be discharged home. The patient is in agreement with this plan. 02/11/2018 8:11:[address] Wyatt is here, discussing the thoracentesis with the patient and her . She was moved to room 6 for the procedure. 02/11/2018 9:18:34 pm successful thoracentesis, room 2500 mL of fluid. Patient did well. Dr. Wyatt did perform the procedure. Decision to Disposition Date: Feb 11, 2018 Decision to Disposition Time: 20:36 Depart Departure Latest Vital Signs Impression: Primary Impression: Pleural effusion Additional Impression: Status post thoracentesis Condition: Improved Disposition: HOME OR SELF-CARE Referrals: INA TABARES MD (PCP) 1 Day Patient Instructions: Pleural Effusion (ED), Thoracentesis (DC) Additional Instructions: The thoracentesis removed fluid from your right chest. Monitor closely for bleeding, redness or swelling. Please follow up with your primary care provider tomorrow for reevaluation. Continue taking your current medications. Please return to the ED for any other concerns or worsening symptoms. Problem Qualifiers KONSTANTIN HYLTON BOIL OFF WORKER-BC Feb 11, 2018 17:09
[2018-02-11] MEDS ORDERED: LORA-1455 PO (17:20)
[2018-02-11 17:56] LABS: PLATELET COUNT, AUTOMATED 215 K/uL (150-450)
[2018-02-11 18:04] LABS: INR 1.13
--- NOTE | 2018-02-11 18:09 | EKG ---
FACILITY: [facility] PATIENT NAME: ISAK SHARMA : [id number] MR: [id number]: [id number] EXAM DATE: ORDERING PHYSICIAN: KONSTANTIN HYLTON TECHNOLOGIST: PRAVEENA Test Reason : SOB Blood Pressure : / mmHG Vent. Rate : 097 BPM Atrial Rate : 097 BPM P-R Int : 134 ms QRS Dur : 110 ms QT Int : 374 ms P-R-T Axes : 058 072 066 degrees QTc Int : 474 ms Normal sinus rhythm Low voltage QRS Septal infarct , age undetermined When compared with ECG of 26-OCT-2016 21:34, Relatively unchanged Confirmed by SUMAN ELLIS ([id number]) on 02/11/2018 8:34:57 PM Referred By: ZACHARY Confirmed By:SUMAN ELLIS
[2018-02-11] MEDS ORDERED: LIDOCAINE 1%MDV(*)200 MG/20 ML 1 ML ONE (20:25)
[2018-02-11] MEDS ORDERED: LORazepam 1 MG TAB PO PRN (21:40)
--- NOTE | 2018-02-11 21:51 | Gen Surgery History & Physical ---
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 She presents to the ED with worsening dyspnea which is affecting her speech. A CXR was performed which demonstrates a moderate right side pleural effusion. I was asked to evaluate her for a thoracentesis. 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 (5) Hyponatremia with excess extracellular fluid volume Status: Acute (6) Ascites Status: Chronic (7) History of hysterectomy Status: Resolved (8) Status post laparoscopic surgery Status: Resolved Home Meds Active Scripts Tramadol Hcl (TRAMADOL HCL) 50 Mg Tablet, 1-2 TAB PO Q4H PRN for PAIN, #30 TAB 0 Refills Prov:INA SWENSON MD 02/08/18 Promethazine Hcl (PROMETHAZINE HCL) 25 Mg Tablet, 1 TAB PO Q8H PRN for NAUSEA/VOMITING, #30 TAB 3 Refills Prov:INA SWENSON MD 01/20/18 Meclizine Hcl (MECLIZINE HCL) 25 Mg Tablet, 25 MG PO Q8H PRN for DIZZINESS, #20 TAB 0 Refills Prov:AGUSTIN MADDOX MD 11/11/17 Tetrahydrozoline Hcl (EYE DROPS) 15 Ml Drops, 15 ML OP 2-3XD for 90 Days, Prov:VIN BROWN MD 06/26/17 Reported Medications Lorazepam (ATIVAN) 0.5 Mg Tablet, 0.25 MG PO Q4-6H 02/11/18 Furosemide (FUROSEMIDE) 20 Mg Tablet, 1 TAB PO QDAY, TAB 01/06/18 Sodium Selenite (SODIUM SELENITE) 1 Gm Powder, 1 GM MC QDAY 01/06/18 [Gcmaf] No Conflict Check, 60 MG PO QDAY 01/06/18 [[place]] No Conflict Check, PO QDAY 01/06/18 [artemisinin] No Conflict Check 11/30/17 Potassium Chloride (POTASSIUM CHLORIDE) 10 Meq Tab.er.prt, 20 MEQ PO QDAY for 30 Days, #30 0 Refills 11/11/17 Cholecalciferol (Vitamin D3) (VITAMIN D3) 1,000 Unit Tablet, 2500 UNIT PO QDAY, TAB 11/11/17 Lactobacillus Combination No.4 (PROBIOTIC) 1 Each Capsule, 1 EACH PO QDAY, CAPSULE 1 OUNCE LIQUID LACTOBACILLUS 07/02/16 [place]-3 Fatty Acids/Fish Oil (OMEGA 3 FISH OIL SOFTGEL) 1 Each Capsule.dr, 2 EACH PO QDAY 07/02/16 Multivitamin (MULTI-DAY VITAMINS) 1 Each Tablet, 1 EACH PO QDAY 07/02/16 Magnesium Oxide (MAGNESIUM) 250 Mg Tablet, 500 MG PO QDAY 07/02/16 Calcium Carb/Vit D3/Mag11/Zinc (XBVJIVB-DZT-RGKL-VIT D TABLET) 1 Each Tablet, 1 EACH PO QDAY 07/02/16 Aspirin (ASPIR 81) 81 Mg Tablet.dr, 81 MG PO QDAY, TAB 07/02/16 Allergies: Coded Allergies: Penicillins (Verified Allergy, Severe, Angioedema and hives, 02/11/18) Sulfa (Sulfonamide Antibiotics) (Verified Allergy, Severe, facial swelling and hives, 02/11/18) nitrofurantoin (Verified Allergy, Severe, Angioedema and hives, 02/11/18) oxycodone (Verified Allergy, Intermediate, ITCHING and hives, 02/11/18) dimethyl fumarate (Verified Allergy, Unknown, 02/11/18) glatiramer (copolymer 1) (Verified Allergy, Unknown, 02/11/18) interferon beta-1a (Verified Allergy, Unknown, 02/11/18) ondansetron (Verified Allergy, Unknown, Itching, 02/11/18) zolpidem (Verified Allergy, Unknown, 02/11/18) Patient History: Esophageal reflux MOTHER FH: NH (myocardial infarction) FATHER FH: cancer Siblings x 1 FH: diabetes mellitus Siblings x 1 FH: respiratory disease MOTHER Review of Systems All Systems Reviewed/Normal: Yes, Except as Noted Respiratory: Shortness of Breath Other No acute change in any of her other issues. Exam General Appearance: Alert, Awake, Other (cachectic) Cardiovascular: Regular Rate and Rhythm Respiratory: Other (dyspneic with decreased right breath sounds) GI: Abd Soft and Non-Tender (distended) Psych: Alert & Oriented X3, Appropriate Mood & Affect Medical Decision Making Data Points Result Diagram: 02/11/18 1745 02/11/18 1745 EKG / Imaging Imaging CXR with moderate right pleural effusion Assessment and Plan Problems: (1) Malignant pleural effusion Onset Date: ~ 02/11/2018 Status: Acute Assessment & Plan: Her pleural effusion is symptomatic with dyspnea while speaking despite her baseline 2LNC. Agree that thoracentesis is indicated therapeutically. Discussed procedure, risks and benefits with the patient and her . She provided consent to proceed. She will be admitted for observation overnight with a repeat CXR in the am prior to discharge. Time Spent: > 30 min Venous Thromboembolism VTE Risk Physician Assess for VTE Risk: Yes Patient's VTE Risk: High VTE Diagnostic Test 2 Days Prior to Admit: No Antithrombotics Is Pt On Any Antithrombotics?: No Prophylaxis Tx Contraindicated Pharmacological Contraindicati: Comfort Measure Mechanical Contraindications: Comfort Measures Only FRED CROCKER MD Feb 11, 2018 21:42
--- NOTE | 2018-02-11 21:54 | Procedure Note ---
Thoracentesis Procedure Note Reason for Thoracentesis: Pleural Effusion Consent Signed: Yes Thoracentesis Location: Right Lung U/S Guided Thoracentesis: Yes Blood Loss: Minimal Complications: None Anesthesia Used: 1% Lidocaine CC's of Anesthesia: 10 Amount of Fluid: 2500 Fluid Characteristics: Serous Post Procedure Xray Ordered: Yes (good drainage, no pneumothorax) Lab Analysis Ordered: No Comment Site was prepped. Local injected. Seldinger technique used to place a silastic catheter which was the kit available in the ED. Patient monitored throughout case. Brief drop of SpO2 below 90% while patient was taking short breaths at the end of the procedure for ~1minute. Oxygen increased from 2L to 4L with immediate response to 100%. Able to rapidly wean back to 2LNC. Specimen not sent due to known diagnosis. FRED CROCKER MD Feb 11, 2018 21:54
[2018-02-11] MEDS: traMADol 50 MG TAB PO PRN (22:16)
[2018-02-12 01:08] VITALS: BP 112/43
[2018-02-12 04:52] VITALS: BP 120/58
[2018-02-12] MEDS: traMADol 50 MG TAB PO PRN (04:53)
[2018-02-12 07:24] VITALS: BP 133/52
--- NOTE | 2018-02-12 08:53 | RADIOLOGY IMAGING REPORT ---
FACILITY: [facility] [place] PATIENT NAME: Kimberlee Tran : 1945 MR: [id number] V: [id number] EXAM DATE: ORDERING PHYSICIAN: FRED CROCKER TECHNOLOGIST: Location: [facility] - [place] Patient: Kimberlee Tran : 1945 Visit/Account:[id number] Date of Sevice: 02/12/2018 Study: Frontal and lateral views of the chest Indication: Pleural effusion status post drainage Comparison study: None Findings: PA and lateral views of the chest demonstrate right lower lobe infiltrate There are bilateral pleural effusions present. As compared to the previous study, the left pleural ef fusion is unchanged while the right pleural effusion has decreased in volume. There is no evidence of pneumothorax. The mediastinal, cardiac, and diaphragmatic contours are unremarkable. The visualized bony structures are unremarkable. There is an implanted port within the right chest. This is unchanged in appearance. IMPRESSION: Interval decrease in left pleural effusion. There is no evidence of pneumothorax. There i s a right lower lobe infiltrate present. Report Dictated By: Alan Bo at 02/12/2018 8:48 AM Report E-Signed By: Alan Bo at 02/12/2018 8:49 AM WSN:[id number]
--- NOTE | 2018-02-12 09:58 | Hospitalist Depart ---
Discharge Summary Reason for Hosp/Final Diag: (1) Malignant pleural effusion Onset Date: ~ 02/11/2018 Status: Chronic Hospital Course & Plan: Her pleural effusion is symptomatic with dyspnea while speaking despite her baseline 2LNC. Agree that thoracentesis is indicated therapeutically. Discussed procedure, risks and benefits with the patient and her . She provided consent to proceed. She will be admitted for observation overnight with a repeat CXR in the am prior to discharge. 02/12/2018: Improved breathing this am though she states she feels tired. Appropriate discomfort at the drainage site, managed by her baseline tramadol and ativan. I reinforced the importance of using the IS, ambulation and coughing to reinflate her lung to prevent a pneumonia. We also discussed that she has fluid in her right chest and the fluid on her left chest will recur. I called and spoke with her PCP, Dr. Dutton. He will contact her to arrange an appointment in the next few days. Departure Weight (Pounds): 122 Result Diagram: 02/11/18 1745 02/11/18 1745 Condition: Improved (a) Discharge: Home Discharge Code Status: Full Code Time Spent: < 30 min Discharge Instructions Home Meds Active Scripts Tramadol Hcl (TRAMADOL HCL) 50 Mg Tablet, 1-2 TAB PO Q4H PRN for PAIN, #30 TAB 0 Refills Prov:INA SWENSON MD 02/08/18 Promethazine Hcl (PROMETHAZINE HCL) 25 Mg Tablet, 1 TAB PO Q8H PRN for NA USEA/VOMITING, #30 TAB 3 Refills Prov:INA SWENSON MD 01/20/18 Meclizine Hcl (MECLIZINE HCL) 25 Mg Tablet, 25 MG PO Q8H PRN for DIZZINESS, #20 TAB 0 Refills Prov:AGUSTIN MADDOX MD 11/11/17 Tetrahydrozoline Hcl (EYE DROPS) 15 Ml Drops, 15 ML OP 2-3XD for 90 Days, Prov:VIN BROWN MD 06/26/17 Reported Medications Lorazepam (ATIVAN) 0.5 Mg Tablet, 0.25 MG PO Q4-6H 02/11/18 Furosemide (FUROSEMIDE) 20 Mg Tablet, 2 TAB PO QDAY, TAB 01/06/18 Sodium Selenite (SODIUM SELENITE) 1 Gm Powder, 1 GM [facility] QDAY 01/06/18 [Gcmaf] No Conflict Check, 60 MG PO QDAY 01/06/18 [[place]] No Conflict Check, PO QDAY 01/06/18 [artemisinin] No Conflict Check 11/30/17 Potassium Chloride (POTASSIUM CHLORIDE) 10 Meq Tab.er.prt, 20 MEQ PO QDAY for 30 Days, #30 0 Refills 11/11/17 Cholecalciferol (Vitamin D3) (VITAMIN D3) 1,000 Unit Tablet, 2500 UNIT PO QDAY, TAB 11/11/17 Lactobacillus Combination No.4 (PROBIOTIC) 1 Each Capsule, 1 EACH PO QDAY, CAPSULE 1 OUNCE LIQUID LACTOBACILLUS 07/02/16 [place]-3 Fatty Acids/Fish Oil (OMEGA 3 FISH OIL SOFTGEL) 1 Each Capsule.dr, 2 EACH PO QDAY 07/02/16 Multivitamin (MULTI-DAY VITAMINS) 1 Each Tablet, 1 EACH PO QDAY 07/02/16 Magnesium Oxide (MAGNESIUM) 250 Mg Tablet, 500 MG PO QDAY 07/02/16 Calcium Carb/Vit D3/Mag11/Zinc (LFHSWRC-HIN-YVKY-VIT D TABLET) 1 Each Tablet, 1 EACH PO QDAY 07/02/16 Aspirin (ASPIR 81) 81 Mg Tablet.dr, 81 MG PO QDAY, TAB 07/02/16 Diet: Regular Activity: As Tolerated Venous Thromboembolism Antithrombotics Is Pt On Any Antithrombotics?: No FRED CROCKER MD Feb 12, 2018 09:58
[2018-02-12] MEDS ORDERED: NSNAS (10:07)
[2018-02-12] MEDS ORDERED: SODI30SP6 NS (10:07)
[2018-02-12] MEDS ORDERED: HEPARIN FLSH (PORT) 500 UN/5ML ONE (10:56)
== END 2018-02-12 10:54 | disposition home or self-care (01) ==
LOC: ER 17:43 → CANBEDREQ 18:29 → MED 20:33 → INTOOBSV 20:33 → EDBEDREQ 20:35
PROVIDERS: ADMIT Surgery; ATTEND Surgery
DX: C56.9 Malignant neoplasm of unspecified ovary (principal); J91.0 Malignant pleural effusion
CPT/HCPCS: 32554; 32555; 36415; 71046; 83735; 83880; 84484; 85025; 85610; 85730; 93005; 99284; A7048; A9270; G0378; J1642; 82040; 82247; 82310; 82374; 82435; 82565; 82947; 84075; 84132; 84155; 84295; 84450; 84460; 84520

== ENCOUNTER → 2018-02-11 | Outpatient (CLI) | payer MEDICARE, OTHER ==
[2016-10-27 08:04] VITALS: BMI 20.1
[~2018-02-11] MED LIST changes: -ALTEPLASE RECOMB 2 MG VIAL IVP PRN; -D5 1/2 NS 500 ML BAG 500 ML IV PRN; -DEXTROSE 5%(*) 100 ML BAG 100 ML IVPB PRN; -GADOBENATE 529MG/1ML 15ML VIAL IVP ONE; -HEPARIN FLSH (PORT) 500 UN/5ML IVP PRN; -LIDOCAINE/SOD BICARB 8.4% SYR ID PRN; -NS(*) 0.9% 100 ML BAG 100 ML IVPB PRN; -NS(*) 0.9% 500 ML BAG 500 ML IV PRN; +NSNAS; +SODI30SP6 NS; -WATER FOR INJ,STERILE 20 ML IVP PRN
--- NOTE | 2018-02-11 17:22 | RADIOLOGY IMAGING REPORT ---
FACILITY: [facility] PATIENT NAME: Kimberlee Tran : 1945 MR: [id number] V: [id number] EXAM DATE: [id number] ORDERING PHYSICIAN: KAY PRINCE TECHNOLOGIST: Location: [facility] - [place] Patient: Kimberlee Tran : 1945 Visit/Account:[id number] Date of Sevice: 02/11/2018 INDICATION: . Shortness of breath DATE: 02/11/2018 5:18 PM. TECHNIQUE: CHEST PA AND LAT COMPARISON: Chest radiograph January 25, 2018 FINDINGS: The right-sided pleural effusion is moderate in size and has increased from the comparison. There continues to be a small left pleural effusion. The right chest port appears unchanged likely terminating in the SVC. IMPRESSION: Moderate size right pleural effusion has increased in volume since January 25, 2018. Persistent sma ll left pleural effusion. Report Dictated By: Doyle Dos Santos MD at 02/11/2018 5:18 PM Report E-Signed By: Doyle Dos Santos MD at 02/11/2018 5:19 PM WSN:[id number]
== END ==
LOC: RAD 16:37
PROVIDERS: ATTEND Family Medicine
DX: R10.817 Generalized abdominal tenderness (principal); J90 Pleural effusion, not elsewhere classified
CPT/HCPCS: 71046